=== PATIENT | female | born 1980 | race Caucasian/White ===

== ENCOUNTER 2020-03-23 14:39 | Emergency (ER) | payer MEDICAID, SELFPAY ==
[2020-03-23 14:40] VITALS: BP 122/54; PULSE 78; RESP 16; TEMP 36.3; O2SAT 97; BMI 35.5
[2020-03-23 15:00] LABS: Mucous, Urine 0 SEEN /hpf (<or=2+); Red Blood Cells-Urine 0 SEEN /hpf (0-5)
[2020-03-23 15:09] LABS: Color, Urine Yellow (Yellow); Glucose, Dipstick Normal (Normal); Ketone-Dipstick Negative (Negative); Leukocyte Esterase-Dipstick 25 /ul (Negative); Nitrite-Dipstick Negative (Negative); Occult Blood-Urine Negative /ul (Negative); Protein-Dipstick Negative (Negative); Urine Bilirubin Dipstick Negative (Negative); Urine Clarity Sl. Cloudy (Clear); Urine Urobilinogen Normal (Normal)
[2020-03-23 15:16] LABS: Bacteria 2+ /hpf (None Seen); Squamous Epithelial Cells - UA 0-5 SEEN /hpf (5-10); White Blood Cells 0-5 SEEN /hpf (0-5)
--- NOTE | 2020-03-23 16:33 | ED.VIS.GEN ---
History of Present Illness Chief Complaint: Female C/O Narrative: Patient was told by 1 of her partners that he has chlamydia, she also has a history of BV, she has some vaginal discharge that seems more like BV she also has no dysuria she has no fever chills cough or congestion she has no abdominal pain. Past Medical History - Allergies and Home Meds Allergies/Adverse Reactions: Allergies acetaminophen [From Vicodin] Adverse Reaction (Verified 03/23/20 14:42) Nausea hydrocodone bitartrate [From Vicodin] Adverse Reaction (Verified 03/23/20 14:42) Nausea Primary Care Physician: Ron Maddox MD [Primary Care Provider] - Past Medical History: None Smoking Status: Light Smoker (<10/day) Review of Systems All systems negative except as indicated General: Denies: Fever Respiratory: Denies: Dyspnea, Cough Gastrointestinal: Denies: Abdominal pain, Nausea, Vomiting Genitourinary: Denies: Dysuria Musculoskeletal: Denies: Myalgias Skin: Denies: Rash Neurological: Denies: Headache, Weakness Psych: Denies: Depression Endocrine: Denies: Polyuria Physical Exam Vital Signs/Narrative: Vital Signs Temp Pulse Resp BP Pulse Ox 03/23/20 14:40 97.3 F L 78 16 122/54 H 97 General: Well nourished, Well developed ENT: Moist mucous membranes Cardiovascular: Regular rate Respiratory: No distress Abdomen: Soft, Nontender Rectal: Deferred : - Back: Nontender - Deferred, Normal Inspection. Negative for: CVA tenderness Extremities: Nontender Skin: Normal color, No rash Psychological: Normal affect Diagnostic/Tx/Re-eval - Medical Decision Making Patient will be tested however I will treat her. She has no abdominal pain or abnormal vitals no further testing is needed. ED Disposition - Plan for ED Patient: Disposition: Home or Assisted Living Diagnosis: Chlamydia Instructions: Chlamydia Trachomatis Urine Prescriptions: Metronidazole [Flagyl] 500 mg PO BID #14 tab Prescription Printed Referrals: Ron Maddox MD [Primary Care Provider] - 3-5 Days
[2020-03-23] MEDS: Azithromycin 250 MG Tablet 1000 MG PO (16:37)
[2020-03-23 16:45] LABS: Chlamydia Trachomatis by PCR Negative (Negative); Neisserai gonorrhoeae by PCR Negative (Negative); Probe Check PASS; Sample Adequacy Control PASS; Specimen Processing Control PASS
[2020-03-23] MEDS: Ceftriaxone 500 MG Vial 250 MG IM (17:01)
[2020-03-23 17:02] VITALS: BP 124/62; PULSE 74; RESP 15; O2SAT 98
== END 2020-03-23 17:02 | disposition home or self-care (01) ==
PROVIDERS: Emergency Provider Emergency Medicine; PCP Family Medicine
DX: A56.2 Chlamydial infection of genitourinary tract, unspecified (principal); F17.200 Nicotine dependence, unspecified, uncomplicated
CPT/HCPCS: 81001; 87491; 87591; 96372; 99283

== ENCOUNTER 2021-04-21 15:50 | Emergency (ER) | payer MEDICAID, SELFPAY ==
[2021-04-21 15:51] VITALS: BP 116/72; PULSE 77; RESP 16; TEMP 36.3; O2SAT 97; BMI 40.8
[2021-04-21 16:23] LABS: Bacteria 0 SEEN /hpf (None Seen); Mucous, Urine 0 SEEN /hpf (<or=2+); Red Blood Cells-Urine 0 SEEN /hpf (0-5); Squamous Epithelial Cells - UA 0 SEEN /hpf (5-10); White Blood Cells 0 SEEN /hpf (0-5)
[2021-04-21 16:30] LABS: Color, Urine Yellow (Yellow); Glucose, Dipstick Normal (Normal); Ketone-Dipstick Negative (Negative); Leukocyte Esterase-Dipstick Negative /ul (Negative); Nitrite-Dipstick Negative (Negative); Occult Blood-Urine 25 /ul (Negative); Protein-Dipstick Negative (Negative); Urine Bilirubin Dipstick Negative (Negative); Urine Clarity Clear (Clear); Urine Urobilinogen Normal (Normal)
[2021-04-21 16:41] LABS: Internal QC Validated? YES +Cl - CLEAR BKGD; Pregnancy, Urine Negative Negative
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
[2021-04-21 18:50] VITALS: RESP 18
[2021-04-21] MEDS: Azithromycin 250 MG Tablet 2000 MG PO (18:55)
[2021-04-21] MEDS: Ceftriaxone 500 MG Vial 250 MG IM (19:41)
[2021-04-24 03:08] LABS: Chlamydia By Nucleic Acid AMP Negative (Negative)
[2021-04-24 09:04] LABS: Gonococcus By Nucleic Acid AMP Negative (Negative)
== END 2021-04-21 19:54 | disposition home or self-care (01) ==
PROVIDERS: Emergency Provider Emergency Medicine; PCP Nurse Practitioner Family
DX: N89.8 Other specified noninflammatory disorders of vagina (principal); Z20.2 Contact with and (suspected) exposure to infections with a predominantly sexual mode of transmission; F17.200 Nicotine dependence, unspecified, uncomplicated
CPT/HCPCS: 81001; 81025; 87086; 87088; 87491; 87591; 96372; 99282

== ENCOUNTER 2022-12-21 15:30 | Emergency (ER) | payer BC, SELFPAY ==
[2022-12-21 15:31] VITALS: BP 122/84; PULSE 78; RESP 16; TEMP 36.4; O2SAT 99; BMI 36.3
--- NOTE | 2022-12-21 16:08 | EDS_ITS ---
HPI History of Present Illness Chief Complaint: Abscess Informant: patient Narrative Narrative: Patient presents with abscess on her breast area. She started with some redness and a red dot about a week ago. She started 1 on the right side of her right breast and 1 on the right side of her left breast. They both swelled up. The tissue got thin. Over the last day or 2 they have been draining. She states there is redness around it and they are just not jeff g away. She did buy a new bra prior to this and did not wash it before using it. That is the only thing she can think has caused this. She does have a history of prior abscesses on her legs though. She states she has no medical problems and is on no meds and has no history of diabetes. She has no allergies to antibiotics. Nothing really makes the the spots better or worse. [facility] Medical History Physical exam, pre-employment Home Medications metronidazole 500 mg tablet 500 mg PO BID 7 days #14 tabs 04/21/21 [Rx Last Taken Unknown] cephalexin 500 mg capsule 500 mg PO Q6 #40 CAPSULES 12/21/22 [Rx Last Taken Unknown] sulfamethoxazole 800 mg-trimethoprim 160 mg tablet 1 tab PO BID #20 TABLETS 12/21/22 [Rx Last Taken Unknown] Allergy/AdvReac Type Severity Reaction Status Date / Time acetaminophen [From Vicodin] AdvReac Nausea Verified 12/21/22 15:31 hydrocodone bitartrate AdvReac Nausea Verified 12/21/22 15:31 [From Vicodin] Surgical History History of cholecystectomy History of loop electrical excision procedure (LEEP) History of tonsillectomy Social History Smoking Status: Light Smoker (<10/day) ROS ROS ED Constitutional Constitutional ED: Denies chills, fever(s) or sweats ENT ENT ED: Denies rhinorrhea Cardiovascular Cardiovascular: Denies chest pain or palpitations Respiratory/Chest Respiratory/Chest: Denies cough or dyspnea Gastrointestinal Gastrointestinal: Denies nausea or vomiting Musculoskeletal Musculoskeletal: Denies myalgias Integumentary Reports abscess and rash Neurologic Neurologic: Denies weakness Hematologic/Lymphatic Hematologic/Lymphatic: Denies easy bleeding or easy bruising Allergic/Immunologic Allergic/Immunologic ED: Denies urticaria EXAM Physical Exam Narrative Exam Narrative: CONSTITUTIONAL: Patient is nontoxic in appearance. The patient looks comfortable. Work of breathing looks normal. HEENT: No notable trauma. Mucous membranes moist. No thrush NECK:No JVD. No stridor. CARDIOVASCULAR: Regular rate. Regular rhythm. No notable murmur. No JVD. RESPIRATORY: No respiratory distress. Breathing is unlabored. No wheezes. Saturations are normal at 99% on room air showing no hypoxia GASTROINTESTINAL: Not distended. Bowel sounds are normal. No tenderness. MUSCULOSKELETAL: Atraumatic. No peripheral edema. NEUROLOGICAL: Patient is alert and appropriate. No focal deficit noted. SKIN: Patient has an area on the right side of each breast that has redness about 2-1/2 3 inches around. They both have a central area that is already opened and drained. There is no drainable abscess. There is no swollen area. PSYCHIATRIC: Patient is calm. Mood is appropriate. Const Vital Signs: 12/21/22 15:31 Temperature 97.5 F L Temperature Source Temporal Pulse Rate 78 Respiratory Rate 16 Blood Pressure 122/84 H Blood Pressure Mean 96 Pulse Ox 99 Oxygen Delivery Method Room Air MDM MDM MDM Narrative Medical decision making narrative: I explained to the patient that normally we would anesthetize these areas make a small incision and get them draining. But they have already drained. There is really nothing to open up. I do not think this would benefit her. But she does have enough erythema that antibiotics are appropriate. Because she has had abscesses in both of these had pockets I will cover for MRSA. We discussed reasons to return and local care. I do not think any ultrasound or imaging is needed. These are superficial on exam. I do not see indication for blood work. She is not sick septic or febrile. Discharge Plan Triage Chief Complaint: Abscess ED Provider: Ramírez Lindo Dx/Rx/DC Orders Clinical Impression: Abscess of breast Instructions: ED Abscess Antibiotic Treatment Only Prescriptions: New sulfamethoxazole-trimethoprim [sulfamethoxazole-trimethoprim] 800-160 mg tablet 1 tab PO BID Qty: 20 0RF cephalexin [cephalexin] 500 mg capsule 500 mg PO Q6 Qty: 40 0RF No Action metronidazole 500 mg tablet 500 mg PO BID 7 Days Qty: 14 0RF Primary Care Provider: Anselmo,Cherelle TENSION WORKER Referrals: hCerelle Briones NP, TENSION WORKER-C [Primary Care Provider] - 3-5 Days if not improving Disposition Disposition: Home, Self Care
[2022-12-21 16:46] VITALS: RESP 16
== END 2022-12-21 16:48 | disposition home or self-care (01) ==
PROVIDERS: Emergency Provider Emergency Medicine; PCP Nurse Practitioner Family; Visit Provider Emergency Medicine
DX: N61.1 Abscess of the breast and nipple (principal); F17.200 Nicotine dependence, unspecified, uncomplicated
CPT/HCPCS: 99282

== ENCOUNTER 2024-02-18 12:59 | Emergency (ER) | payer OTHER, SELFPAY ==
[2024-02-18 13:00] VITALS: BP 125/85; PULSE 94; RESP 16; TEMP 35.8; O2SAT 95; BMI 27.7
--- NOTE | 2024-02-18 13:15 | EKG12_ITS ---
Test Reason : CP Blood Pressure : / mmHG Vent. Rate : 083 BPM Atrial Rate : 083 BPM P-R Int : 146 ms QRS Dur : 072 ms QT Int : 388 ms P-R-T Axes : 045 -17 035 degrees QTc Int : 455 ms Normal sinus rhythm Normal ECG Confirmed by JACEK HOFFMAN, LUCITA ([id number]), movie editor ROBERT CHANG ([id number]) on 02/21/2024 9:47:18 AM Referred By: AR Confirmed By:LAM READ MD
--- NOTE | 2024-02-18 13:16 | EDS_ITS ---
HPI History of Present Illness Chief Complaint: Chest Pain Narrative Narrative: 43-year-old female past medical history of diabetes, on metformin, also has history of panic attacks presents with multiple somatic complaints similar to her previous panic attacks. She states that she was written for hydroxyzine but does not like to take it because it makes her sleepy. About an hour ago, as she was cleaning, she started to feel very lightheaded and dizzy. She felt like a panic attack was coming on. She experienced chest pain, but she denies any nausea or vomiting, no shortness of breath associated with it. She states that whenever she tries to open her eyes, she feels really lightheaded and dizzy. Previously, when she had her worst panic attack, she had come to the ED and she received a medication. She states that this is worsened that. She does not usually take hydroxyzine because it makes her sleepy, and that she becomes lightheaded as well. Additionally, she states she usually does not drink alcohol, but she did imbibe yesterday evening, and is not sure if the way she is feeling is secondary to that. [facility] Medical History (Updated 02/18/24 @ 14:11 by Xuan Du) Diabetes Physical exam, pre-employment Home Medications ?Medication ?Instructions ?Recorded ?Last Taken ?Type metronidazole 500 mg tablet 500 mg PO BID 7 days #14 tabs 04/21/21 Unknown Rx cephalexin 500 mg capsule 500 mg PO Q6 #40 CAPSULES 12/21/22 Unknown Rx sulfamethoxazole 800 1 tab PO BID #20 TABLETS 12/21/22 Unknown Rx mg-trimethoprim 160 mg tablet Allergy/AdvReac Type Severity Reaction Status Date / Time acetaminophen (From Vicodin) AdvReac Nausea Verified 02/18/24 13:00 hydrocodone bitartrate (From AdvReac Nausea Verified 02/18/24 13:00 Vicodin) Surgical History History of cholecystectomy History of loop electrical excision procedure (LEEP) History of tonsillectomy Social History Smoking Status: Light Smoker (<10/day) ROS ROS ED ROS Narrative Constitutional: No fever, no chills. HEENT: No sore throat. No neck pain. No loss of vision. No rhinorrhea. Cardiovascular: Intermittent chest pain. No palpitations. No pedal edema. Respiratory: Positive weeks of cough, no shortness of breath. Abdominal: No abdominal pain. No nausea. No vomiting. Genitourinary: No dysuria. No hematuria. Musculoskeletal: No myalgias. No arthralgias. Neurologic: No headaches. Positive dizziness and lightheadedness. Skin: No rash. No change in color. Psychiatric: No depression. Positive anxiety. EXAM Physical Exam Narrative Exam Narrative: Afebrile. Vital signs noted. HEENT: Normocephalic. Atraumatic. PERRL, EOMI. Neck soft and supple. No point tenderness or step off. Cardiovascular: Regular rate and rhythm. No murmurs, rubs, or gallops appreciated. Respiratory: No tachypnea. Lungs clear to auscultation bilaterally. Gastrointestinal: Abdomen soft, nontender, with normoactive bowel sounds. No rebound or guarding. Neurological: Awake. Alert. Nonfocal, nonlateralizing. Skin: No rash. Normal color. No pallor. Musculoskeletal: No pedal edema. Full range of motion extremities. Const Vital Signs: 02/18/24 13:00 02/18/24 13:27 02/18/24 14:00 Temperature 96.5 F L Temperature Source Temporal Pulse Rate 94 68 Pulse Rate [Lying] Pulse Rate [Sitting (for 1 minute prior to obtaining)] Pulse Rate [Standing (for 1 minute prior to obtaining)] Respiratory Rate 16 16 Respiratory Effort Blood Pressure 125/85 H 100/67 Blood Pressure [Lying] Blood Pressure [Sitting (for 1 minute prior to obtaining)] Blood Pressure [Standing (for 1 minute prior to obtaining)] Blood Pressure Mean 98 78 Blood Pressure Mean [Lying] Blood Pressure Mean [Sitting (for 1 minute prior to obtaining)] Blood Pressure Mean [Standing (for 1 minute prior to obtaining)] Pulse Ox 95 98 97 Oxygen Delivery Method Room Air Room Air Room Air 02/18/24 14:10 02/18/24 14:12 Temperature Temperature Source Pulse Rate Pulse Rate [Lying] 76 Pulse Rate [Sitting (for 1 minute prior to obtaining)] 78 Pulse Rate [Standing (for 1 minute prior to obtaining)] 77 Respiratory Rate Respiratory Effort Normal Non-Labored Blood Pressure Blood Pressure [Lying] 104/73 Blood Pressure [Sitting (for 1 minute prior to obtaining)] 109/87 H Blood Pressure [Standing (for 1 minute prior to obtaining)] 106/77 Blood Pressure Mean Blood Pressure Mean [Lying] 83 Blood Pressure Mean [Sitting (for 1 minute prior to obtaining)] 94 Blood Pressure Mean [Standing (for 1 minute prior to obtaining)] 86 Pulse Ox Oxygen Delivery Method MDM MDM MDM Narrative Medical decision making narrative: The differential diagnosis is acute coronary syndrome versus panic attack versus pneumonia versus pneumothorax. History and physical does not support the latter 2 diagnoses. Differential is not limited to these however. Comprehensive workup was pursued. She has normal vital signs I think she is probably having more panic attack versus intravascular volume depletion. EKG obtained which demonstrates normal sinus rhythm at 83 bpm without ectopy or acute ST changes. No STEMI. Her orthostatics were obtained and reviewed and are negative for significant drop in blood pressure or tachycardia/increased heart rate. I reviewed her laboratory work and she has normal white count of 10.1 with hemoglobin normal at 12.9, hematocrit 40.0, platelet count is elevated at 524 which I think is nonspecific. 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 Sodium is slightly low at 135, normal potassium of 4.1, gluco se is elevated at 340 but she has normal anion gap of 9 so I doubt diabetic ketoacidosis. Magnesium normal at 1.7. High-sensitivity troponin is less than 3. I do not feel that she needs serial enzymes as her history and physical does not really support ischemic chest pain. Upon repeat evaluation, she may feel lightheaded because of her hyperglycemia but this is a random glucose. I do not feel she requires admission. Her repeat evaluation at approximately 1415 shows her to feel more calm. She has hydroxyzine at home. I feel she can be discharged to follow-up with her primary care provider. Return instructions to the emergency department were reviewed. Disposition is discharged home in stable condition. History & Record Review Discussion w/independent historian: Patient Lab Data Attestation: I reviewed the patient's lab results. Labs: Laboratory Results - last 24 hr 02/18/24 13:25 WBC 10.1 RBC 4.53 Hgb 12.9 Hct 40.0 MCV 88.3 MCH 28.5 MCHC 32.3 RDW Std Deviation 50.0 H RDW Coeff of Arlin 15.5 H Plt Count 524 H MPV 8.9 Immature Gran % (Auto) 0.300 Neut % (Auto) 56.8 Lymph % (Auto) 30.6 [place] % (Auto) 10.3 H Eos % (Auto) 1.3 Baso % (Auto) 0.7 Absolute Neuts (auto) 5.7 Absolute Lymphs (auto) 3.09 Nucleated RBC % 0 Sodium 135 L Potassium 4.1 Chloride 103 Carbon Dioxide 23.0 Anion Gap 9 BUN 5 L Creatinine 0.92 Estim Creat Clear Calc 84.85 Est GFR (MDRD) Af Amer 87 Est GFR (MDRD) Non-Af 72 BUN/Creatinine Ratio 5.5 L Glucose 340 H Calcium 8.9 Magnesium 1.7 Troponin I High Sens < 3 L Radiography Diagnostic Testing: Clinical Impression(s) from Imaging Studies Chest X-Ray 02/18/24 13:25 IMPRESSION: No acute cardiopulmonary process identified. Electronically Signed: Emy Gonzalez MD at 14:00 EDT Reading Location ID and State: [facility] / [place] Tel , Service support , Discharge Plan Triage Chief Complaint: Chest Pain ED Provider: Federico Bauer Dx/Rx/DC Orders Prescriptions: No Action metronidazole 500 mg tablet 500 mg PO BID 7 Days Qty: 14 0RF sulfamethoxazole-trimethoprim [sulfamethoxazole-trimethoprim] 800-160 mg tablet 1 tab PO BID Qty: 20 0RF cephalexin [cephalexin] 500 mg capsule 500 mg PO Q6 Qty: 40 0RF Primary Care Provider: Cherelle Briones NP Referrals: Cherelle Briones NP, RIB MATCHER AND FITTER-C [Primary Care Provider] - Print Language: [place]
[2024-02-18] MEDS: 0.9% Normal Saline (1000mL) 1,000 ML 999 ML IV (13:24)
[2024-02-18] MEDS: Aspirin 81 MG TAB.CHEW 324 MG PO (13:24)
--- NOTE | 2024-02-18 13:25 | RAD_ITS ---
HISTORY: chest pain. TECHNIQUE: XR Chest 1 View. COMPARISON: 10/19/2015. FINDINGS: CARDIOMEDIASTINAL BORDERS: Cardiac silhouette within normal limits in size. Mediastinal contour unremarkable. LUNGS: Radiographically clear. PLEURA: No pleural effusion or pneumothorax seen. OSSEOUS STRUCTURES: Unremarkable. RAD/Chest 1 View (Portable) IMPRESSION: No acute cardiopulmonary process identified. Electronically Signed: Emy Gonzalez MD at 14:00 EDT ,
[2024-02-18 13:27] VITALS: O2SAT 98
[2024-02-18 13:30] LABS: Absolute Lymphocyte Count 3.09 X10^3/uL (0.83-4.51); Absolute Neutrophil Count 5.7 X10^3/uL (2.0-7.7); Basophil# 0.07 X10^3/uL; Basophil% 0.7 % (0-1); Eosinophil# 0.13 X10^3/uL; Eosinophils% 1.3 % (0-5); Hemoglobin 12.9 g/dL (12.0-15.0); Lymphocyte # 3.09 X10^3/ul (0.83-4.51); Lymphocyte % 30.6 % (19-41); Mean Corp Hgb Conc 32.3 g/dL (32-36); Mean Corpuscular Hgb 28.5 pg (27.0-32.0); Mean Corpuscular Volume 88.3 fL (81-99); Mean Platelet Vol. 8.9 fl (6.2-12.0); Monocyte# 1.04 X10^3/uL; Monocyte% 10.3 % (0-10); NRBC Flagged by Analyzer 0 % (0-5); Neutrophil # 5.73 X10^3/uL (2.7-7.7); Neutrophil % 56.8 % (47-70); Platelet Count 524 K/mm3 (150-450); RBC Distribution Width CV 15.5 % (11.6-14.6); Red Blood Count 4.53 M/mm3 (4.2-5.4); White Blood Count 10.1 K/mm3 (4.4-11.0)
[2024-02-18 13:49] LABS: Anion Gap 9 (5-15); BUN 5 mg/dL (7-18); BUN/Creat Ratio 5.5 RATIO (10-20); Calcium,Total 8.9 mg/dL (8.5-10.1); Chloride 103 mmol/L (98-107); Creatinine, Serum 0.92 mg/dL (0.55-1.02); EST Glomerular Filtration Rate 72 mL/min (>60); Est Glom Filt Rate - Afr Amer 87 mL/min (>60); Estimated Creatinine Clearance 84.85 ml/min; Glucose 340 mg/dL (74-106); Magnesium 1.7 mg/dL (1.6-2.6); Potassium 4.1 mmol/L (3.5-5.1); Sodium Level 135 mmol/L (136-145); Troponin-I HS < 3 pg/mL (3.0-54.0)
[2024-02-18 14:00] VITALS: BP 100/67; PULSE 68; RESP 16; O2SAT 97
[2024-02-18 14:10] VITALS: BP 104/73; BP 106/77; BP 109/87; PULSE 76; PULSE 77; PULSE 78
[2024-02-18 14:38] VITALS: BP 110/73; PULSE 71; RESP 21; TEMP 36.8; O2SAT 98
== END 2024-02-18 14:39 | disposition home or self-care (01) ==
PROVIDERS: Emergency Provider Emergency Medicine; PCP Nurse Practitioner Family; Visit Provider Emergency Medicine
DX: R07.9 Chest pain, unspecified (principal); E11.65 Type 2 diabetes mellitus with hyperglycemia; F17.200 Nicotine dependence, unspecified, uncomplicated; Z79.84 Long term (current) use of oral hypoglycemic drugs
CPT/HCPCS: 71045; 80048; 83735; 84484; 85025; 93005; 96360; 99285; J7030

== ENCOUNTER 2024-04-05 13:55 | Emergency (ER) | payer SELFPAY ==
[2024-04-05 13:55] VITALS: BP 122/86; PULSE 98; RESP 18; TEMP 36.5; O2SAT 97; BMI 26.6
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
[2024-04-05] MEDS: Acetaminophen 325 MG Tablet 650 MG PO (15:05)
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
[2024-04-05 15:29] LABS: Internal QC Validated? YES +Cl - CLEAR BKGD; Pregnancy, Urine Negative Negative
[2024-04-05 15:30] LABS: Record Kit Lot#,Urine Preg 772476
[2024-04-05 15:55] VITALS: PULSE 90; RESP 16; O2SAT 98
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
[2024-04-05 16:46] VITALS: BP 134/69; PULSE 81; RESP 16; TEMP 36.4; O2SAT 100
== END 2024-04-05 16:47 | disposition home or self-care (01) ==
PROVIDERS: Emergency Provider Emergency Medicine; PCP Nurse Practitioner Family; Visit Provider Emergency Medicine
DX: S09.90XA Unspecified injury of head, initial encounter (principal); E11.9 Type 2 diabetes mellitus without complications; J06.9 Acute upper respiratory infection, unspecified; F17.200 Nicotine dependence, unspecified, uncomplicated; M25.511 Pain in right shoulder; Y04.8XXA Assault by other bodily force, initial encounter; S00.83XA Contusion of other part of head, initial encounter; S53.401A Unspecified sprain of right elbow, initial encounter; Z79.84 Long term (current) use of oral hypoglycemic drugs
CPT/HCPCS: 70450; 70486; 73080; 81025; 87631; 99282

== ENCOUNTER 2025-05-01 23:09 | Emergency (ER) | payer MEDICAID, SELFPAY ==
[2025-05-01 23:10] VITALS: BP 125/102; PULSE 91; RESP 18; TEMP 36.4; O2SAT 99; BMI 25.2
[2025-05-01 23:59] LABS: Mucous, Urine 0 SEEN /hpf (<or=2+)
--- NOTE | 2025-05-01 23:59 | RAD_ITS ---
PROCEDURE: CHEST PA AND LATERAL 05/01/2025 REASON FOR EXAM: COUGH TECHNIQUE: Procedure Code: RADCXR Modality: DX Procedure: CHEST PA AND LATERAL COMPARISON: 02/18/2024. FINDINGS: The lungs are expanded. There is no demonstrated parenchymal abnormality. There is no demonstrated pleural abnormality. Normal heart and pericardium. Normal mediastinum and pramod. Normal visualized pulmonary arteries. Normal visualized aortic arch and descending thoracic aorta. Normal visualized thoracic spine. Normal visualized ribs, clavicles, and shoulders. There is no demonstrated abnormality of the visualized soft tissue structures of the upper abdomen. RAD/Chest PA and Lateral IMPRESSION: No evidence for acute abnormality. [facility]
--- OUTSIDE RECORDS SUMMARY | 2025-05-02 00:04 | XMS RPT_ITS | CCD ---
Author Organization [facility] Care Team Providers Care Dock Superintendent Name Role Phone KHUSHBOO RUIZ Unavailable Unavailabl e TARKENTON, RAQUEL Referring Unavailable TARKENTON, RAQUEL Primary Care Unavailable Tarkenton, Raquel Primary Care Provider Liang HOFFMAN, Ravinder Primary Care Provider Liang HOFFMAN, Ravinder Primary Care Provider Nikolay LCSW, Suma Bernstein Attending Unavailabl e Troy LCSW, Sarah Referring Unavailable Troy LCSW, Sarah Primary Care Unavailable Troy LCSW, Sarah Primary Care Unavailable Krista Bryan Attending Unavailable Troy LCSW, Sarah Primary Care Unavailable Federico Bauer Attending Unavailable SARAH BRIONES CNP Consulting Unavailable BRUCE, WILFRIDO C Admitting Unavailable BRUCE, WILFRIDO C Primary Care Unavailable BRUCE, WILFRIDO C Attending Unavailable SARAH BRIONES CNP Referring Unavailable PROVIDER, UNKNOWN Consulting Unavailable PROVIDER, UNKNOWN Consulting Unavailable SARAH BRIONES CNP Primary Care Unavailable SARAH BRIONES CNP Attending Unavailable SARAH BRIONES CNP Admitting Unavailable SARAH BRIONES CNP Admitting Unavailable SARAH BRIONES CNP Primary Care Unavailable SARAH BRIONES CNP Consulting Unavailable SARAH BRIONES CNP Attending Unavailable PROVIDER, UNKNOWN Consulting Unavailable PROVIDER, UNKNOWN Consulting Unavailable SARAH BRIONES CNP Consulting Unavailable HEATHER CARRERO MD Admitting Unavailable HEATHER CARRERO MD Primary Care Unavailable HEATHER CARRERO MD Attending Unavailable SARAH BRIONES CNP Referring Unavailable PROVIDER, UNKNOWN Consulting Unavailable PROVIDER, UNKNOWN Consulting Unavailable HERBERT KOWALSKI Admitting Unavailable JEBHERBERT CALDWELL Primary Care Unavailable HERBERT KOWALSKI Attending Unavailable SARAH BRIONES CNP Consulting Unavailable SARAH BRIONES CNP Referring Unavailable PROVIDER, UNKNOWN Consulting Unavailable PROVIDER, UNKNOWN Consulting Unavailable Aileen Samuels PA-C Unavailable Troy THOMAS.Sarah MONTA[place] Primary Care Provider YULIET JOHNSON Attending Unavailable SARAH BRIONES Primary Care Unavailable [facility] Natobarbara Lim Primary Care Provider Art March MD Emergency Provider Kanani DMD, Hadley Unavailable Unavailable Kanani DMD, Hadley Unavailable Unavailable Rice WHCNP WHCNP, Marco Unavailable Unavaila ble Rice ([facility]) Maroc THOMAS Attending Provider Frey LCSW-C, Ruddy Primary Care Provider Frey LCSW-C, Ruddy Unavailable Unavailab le Rondon DDS, Yovani Unavailable Unavailable Rice WHCNP WHCNP, Marco Unavailable Unavaila ble Rice WHCNP WHCNP, Marco Unavailable Unavaila ble Kanani DMD, Hadley Unavailable Unavailable Frey LCSW-C, Ruddy Unavailable Unavailab le Rice WHCNP WHCNP, Marco Unavailable Unavaila ble Clancy DDS, Yixue Unavailable Unavailable Frey LCSW-C, Ruddy Unavailable Unavailab le Frey LCSW-C, Ruddy Unavailable Unavailab le Frey LCSW-C, Ruddy Unavailable Unavailab le [facility], Nato Lim Primary Care Unavailable Art March Jr Admitting Unavailable Art March Jr Attending Unavailable Ruddy Frey Primary Care Unavailable Rice ([facility]), Marco Isabel Admitting Unavailabl e Rice ([facility]), Marco Isabel Attending Unavailabl e Ruddy Frey Primary Care Unavailable Rice ([facility]), Marco Isabel Admitting Unavailabl e Rice ([facility]), Marco Isabel Attending Unavailabl e Kanani DMD, Hadley Unavailable Unavailable Rice WHCNP WHCNP, Marco Unavailable Unavaila ble Rice WHCNP WHCNP, Marco Unavailable Unavaila ble Rondon DDS, Yovani Unavailable Unavailable West LCSW-C, Coby Unavailable Unavailable Rice WHCNP WHCNP, Marco Unavailable Unavaila ble Kanani DMD, Hadley Unavailable Unavailable Rice WHCNP WHCNP, Marco Unavailable Unavaila ble Frey LCSW-C, Ruddy Unavailable Unavailab le Frey LCSW-C, Ruddy Primary Care Unavailab le Frey LCSW-C, Ruddy Attending Unavailab le Rice CNP ANTHONYPMarco Unavailable Unavaila ble [facility] Marco Unavailable Unavaila ble Allergies Allergy Classification Reported Allergen(s) Allergy Type Date of Onset Reaction(s) Facility (7 sources) Acetaminophen / HYDROcodone; Translations: [HYDROCODONE-ACETA MINOPHEN] Drug Allergy 10-02-2013 Vomiting [facility] [place] (2 sources) Acetaminophen; Translations: [ACETAMINOPHEN] Drug Allergy 03-23-2020 [facility] (1 source) HYDROcodone Drug Allergy 04-05-2024 [facility] (2 sources) Acetaminophen Drug Allergy 03-23-2020 Vomiting [facility] (4 sources) HYDROcodone; Translations: [hydrocodone] Drug Allergy 03-08-2025 Vomiting [facility] Medications Current Medications Medication Drug Class(es) Dates Sig (Normalized) Sig (Original) boric acid (2 sources) BORIC ACID MISC as needed. Active 12 hr buPROPion hydrochloride 150 mg extended release oral tablet (1 source) Aminoketone take 1 tablet by mouth twice daily buPROPion (WELLBUTRIN SR) 150 MG extended release tablet Take 150 mg by mouth 2 times daily 0 Active 0.5 ml dulaglutide 3 mg/ml auto-injector (2 sources) GLP-1 Receptor Agonist Start: 04-04-2025 inject 1 mg by subcutaneous injection every week Trulicity 1.5 mg/0.5 mL subcutaneous pen injector inject (1.5MG) by subcutaneous route every week 1.5 MG - Active Start: 03-14-2025 inject 1 mg by subcu taneous injection every week Trulicity 0.75 mg/0.5 mL subcutaneous pen injector inject (0.75MG) by subcutaneous route every week 0.75 MG - Active famotidine 20 mg oral tablet (4 sources) Histamine-2 Receptor Antagonist Start: 03-06-2025 take 1 tablet by mouth once daily glipiZIDE er 10 mg 24 hr extended release oral tablet (7 sources) Sulfonylurea Start: 03-08-2025 take 1 tablet by mouth twice daily Start: 03-07-2025 take 2 tablets by mo [facility] once daily at breakfast glipizide ER 10 mg tablet, extended release 24 hr take 2 tablet by oral route every day with breakfast 20 MG - Active Start: 01-02-2025 take 1 tablet by mouth once da [place] glipiZIDE (GLUCOTROL XL) 5 mg 24 hr tablet Take 1 tablet by mouth once daily. 01/02/2025 Active End: 03-07-2025 take 1 tablet by mouth every twelve hours glipizide 5 mg tablet take 1 tablet by oral route 2 times every day before meals 5 MG - No Longer Active 12 hr guaiFENesin 1200 mg / pseudoephedrine hydrochloride 120 mg extended release oral tablet (1 source) alpha-Adrenergic Agonist Start: 02-02-2018 take 120-1200 mg by mouth once Pseudoephedrine-guaiFENesin (MUCINEX D MAX STRENGTH) 120-1200 MG TB12 Take 1 tablet by mouth 2 times daily 20 tablet 0 02/02/2018 Active hydroCHLOROthiazide 12.5 mg oral capsule (1 source) Thiazide Diuretic take 1 capsule by mouth once daily hydrochlorothiazide (MICROZIDE) 12.5 MG capsule Take 12.5 mg by mouth daily 0 Active ibuprofen 600 mg oral tablet (1 source) Nonsteroidal Anti-inflammatory Drug Start: 03-24-2025 take 1 tablet by mouth three times daily at mealtime as needed ibuprofen 600 mg tablet take 1 tablet by oral route 3 times every day with food as needed 600 MG - Active isopropyl alcohol 0.7 ml/ml medicated pad (1 source) Start: 03-06-2025 Alcohol Pads QID PRN testing for symptoms of abnormal blood sugar - Active metFORMIN hydrochloride 1000 mg oral tablet (8 sources) Biguanide Start: 03-14-2025 take 1 tablet by mouth twice daily at dinner metformin 1,000 mg tablet take 1 tablet by oral route 2 times every day with morning and evening meals 1000 MG - Active Start: 03-08-2025 Start: 01-02-2025 take 1 tablet by richa th every twelve hours metFORMIN (GLUCOPHAGE) 1,000 mg tablet Take 1 tablet by mouth every 12 hours. 01/02/2025 Active End: 03-04-2025 take 1 tablet by mouth every twelve hours metformin 500 mg tablet take 1 tablet by oral route 2 times every day with morning and evening meals 500 MG - No Longer Active metroNIDAZOLE 500 mg oral tablet (2 sources) Nitroimidazole Antimicrobial Start: 03-10-2025 take 1 tablet by mouth twice daily metronidazole 500 mg tablet take 1 tablet by oral route BID for 7 days - Active Start: 12-22-2021 End: 12-29-2021 take 1 tablet by mouth twice daily metroNIDAZOLE (FLAGYL) 500 mg tablet Take 1 tablet by mouth twice daily for 7 days. 14 tablet 0 12/22/2021 12/29/2021 Active Comment on above: Take 1 tablet by richa twice daily for 7 days. Monistat 7 Vaginal Cream Combination Pack (1 source) Azole Antifungal Start: 03-10-2025 Monistat 7 2 % vaginal cream insert 1 applicatorful by vaginal route every day at bedtime for 7 days - Active norethindrone acetate 5 mg oral tablet (2 sources) Start: 01-14-2025 norethindrone (AYGESTIN) 5 mg tablet Indications: abnormal uterine bleeding due to hormonal imbalance Take 1 tablet TID until bleeding stops for 24 hours, then 1 tablet BID x 3 days, then 1 tablet daily x 3 days. 35 tablet 01/14/2025 Active OneTouch Ultra2 Meter (1 source) Start: 03-06-2025 OneTouch Ultra2 Meter QID PRN testing for symptoms of abnormal blood sugar - Active Completed/Discontinued Medications Medication Drug Class(es) Dates Sig (Normalized) Sig (Original) azithromycin 500 mg oral tablet (1 source) Macrolide Antimicrobial Start: 03-10-2025 End: 03-14-2025 take 2 tablets by mouth once Zithromax 500 mg tablet take 2 tablet by oral route once 1000 MG - No Longer Active citalopram 20 mg oral tablet (4 sources) Serotonin Reuptake Inhibitor End: 01-14-2025 take 1 tablet by mouth once daily citalopram (CELEXA) 20 mg tablet Take 20 mg by mouth once daily. 01/14/2025 Discontinued (Course of therapy completed) Comment on above: Take 20 mg by mouth once daily. sulfamethoxazole 800 mg / trimethoprim 160 mg oral tablet (1 source) Dihydrofolate Reductase Inhibitor Antibacterial, Sulfonamide Antimicrobial Start: 04-09-2025 End: 04-18-2025 take 1 tablet by mouth every twelve hours Bactrim DS 800 mg-160 mg tablet take 1 tablet by oral route every 12 hours 1.00 tablet - No Longer Active Problems Active Problems Problem Classification Problem Date Documented Date Episodic/Chronic Adjustment disorders (5 sources) Adjustment disorder; Translations: [Adjustment disorder, unspecified] Onset: 01-07-2010 01-07-2010 Chronic Alcohol-related disorders (2 sources) Alcohol dependence, uncomplicated; Translations: [Alcohol use disorder. Severe] Onset: 04-17-2025 Chronic Anxiety disorders (2 sources) Post-traumatic stress disorder, unspecified; Translations: [Posttraumatic stress disorder] Onset: 04-17-2025 Chronic Bacterial infection; unspecified site (3 sources) Chlamydial infection; Translations: [Chlamydial infection, unspecified] 03-10-2025 Episodic Diabetes mellitus with complications (8 sources) Hyperglycemia due to diabetes mellitus; Translations: [Type 2 diabetes mellitus with hyperglycemia] 03-09-2025 Chronic Diabetes mellitus without complication (2 sources) Type 2 diabetes mellitus without complications; Translations: [Type 2 diabetes mellitus without complication, without long-term current use of insulin] Chronic Diabetes mellitus without complication (3 sources) Other abnormal glucose; Translations: [Hemoglobin A1C greater than 9%, indicating poor diabetic control] Onset: 03-08-2025 Episodic Esophageal disorders (7 sources) Gastroesophageal reflux disease; Translations: [Gastro-esophageal reflux disease without esophagitis] Onset: 03-02-2012 03-02-2012 Chronic Headache; including migraine (1 source) Headache; including migraine; Translations: [Headache, unspecified] Onset: 04-26-2024 Immunizations and screening for infectious disease (15 sources) Patient encounter status; Translations: [Encounter for screening for infections with a predominantly sexual mode of transmission] Onset: 01-14-2025 Episodic Mood disorders (2 sources) Dysthymic disorder; Translations: [Persistent depressive disorder (dysthymia)] Onset: 04-17-2025 Chronic Nonspecific chest pain (1 source) Chest pain, unspecified; Translations: [Chest pain, unspecified] Onset: 02-28-2024 Episodic Other female genital disorders (2 sources) Abnormal uterine bleeding; Translations: [Abnormal uterine and vaginal bleeding, unspecified] 01-14-2025 Chronic Other female genital disorders (6 sources) Abnormal uterine and vaginal bleeding, unspecified; Translations: [Episode of heavy vaginal bleeding] Onset: 01-14-2025 Chronic Other female genital disorders (1 source) Vaginal odor; Translations: [Other specified noninflammatory disorders of vagina] 01-14-2025 Episodic Other female genital disorders (1 source) Other specified noninflammatory disorders of vagina; Translations: [Vaginal odor] Onset: 01-14-2025 Episodic Other nutritional; endocrine; and metabolic disorders (5 sources) Body mass index 40+ - severely obese; Translations: [Morbid (severe) obesity due to excess calories] Onset: 04-09-2013 04-09-2013 Chronic Other nutritional; endocrine; and metabolic disorders (2 sources) Body mass index (BMI) 34.0-34.9, adult Onset: 02-27-2025 02-27-2025 Chronic Other nutritional; endocrine; and metabolic disorders (8 sources) Body mass index (BMI) 26.0-26.9, adult Onset: 03-04-2025 03-04-2025 Episodic Other screening for suspected conditions (not mental disorders or infectious disease) (20 sources) Cancer cervix screening status; Translations: [Encounter for screening for malignant neoplasm of cervix] Onset: 01-14-2025 01-14-2025 Episodic Prolapse of female genital organs (3 sources) Uterine prolapse; Translations: [Uterovaginal prolapse, unspecified] Onset: 01-14-2025 01-14-2025 Chronic Residual codes; unclassified (6 sources) High risk heterosexual behavior Episodic Residual codes; unclassified (2 sources) Body mass index (BMI) 24.0-24.9, adult Onset: 04-09-2025 04-09-2025 Episodic Skin and subcutaneous tissue infections (2 sources) Furuncle, unspecified; Translations: [Boil] Episodic Substance-related disorders (6 sources) Cannabis dependence, in remission; Translations: [Cocaine abuse, uncomplicated] Onset: 04-17-2025 Chronic Unclassified (1 source) Unknown / UNK(Unknown) Onset: 06-20-2017 Unclassified (1 source) Patient encounter status 01-14-2025 Past or Other Problems Problem Classification Problem Date Documented Date Episodic/Chronic Abdominal pain (9 sources) Pain in female pelvis; Translations: [Abdominal pain] Onset: 07-03-2009 07-03-2009 Episodic Administrative/social admission (1 source) Encounter for pre-employment examination; Translations: [Encounter for pre-employment examination] Onset: 08-28-2023 Episodic Biliary tract disease (5 sources) Biliary calculus; Translations: [Calculus of gallbladder without cholecystitis without obstruction] Onset: 10-02-2013 10-02-2013 Episodic Diabetes mellitus without complication (2 sources) Diabetes mellitus without complication Onset: 03-06-2025 Resolved: 03-14-2025 Genitourinary symptoms and ill-defined conditions (1 source) Dysuria; Translations: [Dysuria] Onset: 03-06-2024 Episodic Unclassified (1 source) PRE EMP PX ONLY Onset: 06-20-2017 Unclassified (1 source) dental new (chief complaint) Onset: 02-26-2025 Unclassified (1 source) pa (chief complaint) Onset: 02-27-2025 Unclassified (2 sources) annual exam (chief complaint) Onset: 03-04-2025 Unclassified (2 sources) Filling (chief complaint) Onset: 03-17-2025 Resolved: 03-31-2025 Unclassified (1 source) ext (chief complaint) Onset: 03-06-2025 Unclassified (2 sources) DL (chief complaint) Onset: 03-10-2025 Resolved: 03-24-2025 Unclassified (1 source) DORIS (chief complaint) Onset: 04-09-2025 Viral infection (5 sources) Genital warts; Translations: [Anogenital (venereal) warts] Onset: 06-11-2012 06-11-2012 Episodic Results Test Name Value Interpretation Reference Range Facility Laboratory - Microbiology an d Antimicrobial susceptibilityOrdered By: Marco Jacques [facility] on 04-10-2025 C. trachomatis rRNA RUSSELL+probe Ql (Unsp spec) Negative Negative [facility] N. gonorrhoeae rRNA RUSSELL+probe Ql (Unsp spec) Negative Negative [facility] T. vaginalis rRNA RUSSELL+probe Ql (Unsp spec) Negative Negative [facility] MM screening mammo BI w/CADo n 03-20-2025 MM screening mammo BI w/CAD [facility] [address] [place], [place] [address], [place] [address] Mammography Report Signed Patient: Ana Fulton MR#: [id number] : 1980 Acct:[id number] Age/Sex: 44 / F Adm Date: 03/20/25 Loc: [place] Room: Type: [facility] Attending Dr: Marco Jacques ([facility]) WILLIAM Ordering Provider: Marco Jacques APRN RUBÉN Date of Service: 03/20/25 Procedure(s): MM screening mammo BI w/CAD Accession Number(s): ([id number]) MM/MM screening mammo BI w/CAD: SCREENING Copies to: Ruddy Jacques APRN, RUBÉN CLINICAL DATA: Screening for malignancy. SCREENING MAMMOGRAM - FULL FIELD DIGITAL WITH TOMOSYNTHESIS AND CAD COMPARISON:Baseline study Tomosynthesis craniocaudal and mediolateral oblique views of both breasts were obtained using low- dose digital technique. This examination was reviewed with the aid of CAD. FINDINGS: The breast tissue is composed of scattered fibroglandular densities. There are no dominant masses, typically malignant calcifications or architectural distortion. MM/MM screening mammo BI w/CAD IMPRESSION: NO MAMMOGRAPHIC EVIDENCE OF MALIGNANCY. ROUTINE FOLLOW-UP IS RECOMMENDED IN ONE YEAR. RESULT CODE: 1 Negative DENSITY CODE: 2 (approximately 25-50% glandular) There are scattered areas of fibroglandular density. FOLLOW UP: 1YR The false-negative rate of mammography is approximately 10-percent. Management of a palpable abnormality must be based on clinical grounds. Patient was entered into a reminder system with a target due date for the next mammogram. Impression dictated by: Amrik Quesada Jr., D.O. 03/20/2025 1:59 PM Dictation Location: [facility] Dictated By: Amrik Quesada Jr, DO 03/20/25 1358 Signed By: 03/20/25 1359 Normal [facility] Mammography reportOrdered By : Amrik Quesada on 03-20-[address] [facility] [address] [place] [id number] Mammography Report Signed Patient: Ana Fulton MR#: [id number] : 1980 Acct:[id number] Age/Sex: 44 / F Adm Date: 5 Loc: [place] Room: Type: REG CLI Attending Dr: Marco Jacques ([facility]) [place]IAM Ordering Provider: Marco Jacques APRN, WHCNP Date of Service: 03/20/25 Procedure(s): MM screening mammo BI w/CAD Accession Number(s): ([id number]) MM/MM screening mammo BI w/CAD: SCREENING Copies to: Ruddyslim Jacques APRN RUBÉN~ CLINICAL DATA: Screening for malignancy. SCREENING MAMMOGRAM - FULL FIELD DIGITAL WITH TOMOSYNTHESIS AND CAD COMPARISON:Baseline study Tomosynthesis craniocaudal and mediolateral oblique views of both breasts were obtained using low-dose digital technique. This examination was reviewed with the aid of CAD. FINDINGS: The breast tissue is composed of scattered fibroglandular densities. There are no dominant masses, typically malignant calcifications or architectural distortion. MM/MM screening mammo BI w/CAD IMPRESSION: NO MAMMOGRAPHIC EVIDENCE OF MALIGNANCY. ROUTINE FOLLOW-UP IS RECOMMENDED IN ONE YEAR. RESULT CODE: 1 Negative DENSITY CODE: 2 (approximately 25-50% glandular) There are scattered areas of fibroglandular density. FOLLOW UP: 1YR The false-negative rate of mammography is approximately 10-percent. Management of a palpable abnormality must be based on clinical grounds. Patient was entered into a reminder system with a target due date for the next mammogram. Impression dictated by: Amrik Quesada Jr., D.ODoc 03/20/2025 1:59 PM Dictation Location: [facility] Dictated By: Amrik Quesada Jr, DO 03/20/25 1358 Signed By: 03/20/25 1359 [facility] US pelvic completeon 025 US pelvic complete [facility] [place] [address] Ultrasound Report Signed Patient: Ana Fulton MR#: [id number] : 1980 Acct:[id number] Age/Sex: 44 / F ADM Date: 03/20/25 Loc: XD Room: Type: REG CLI Attending Dr: Marco Jacques ([facility]) [place] Ordering Provider: Marco Jacques APRN, WHCNP Date of Service: 03/20/25 US/US transvaginal: N93.9 ([id number]) US/US pelvic complete: N93.9 Copies to: Marco Jacques APRN, WHCNP Pelvic ultrasound. Reason for exam: Heavy vaginal bleeding last month. Comparison: none Technique: Transabdominal imaging of the uterus and ovaries was performed. Transvaginal imaging of the uterus and ovaries was also obtained. Additional spectral Doppler analysis of the ovaries was a lso obtained. Findings: Uterus measures 8.0 x 5.6 x 5.1 cm. Fibroid involving the fundus measuring 1.6 x 1.6 x 1.1 cm with likely degenerating component. Endometrium measures 2.2 mm. Right ovary measures 2.6 x 1.8 x 2.3 cm. Left ovary measures 2.4 x 2 x 1 x 2.1 cm. Normal arterial and venous Doppler waveforms. A corpus luteum/hemorrhagic cyst is seen involving the right ovary measuring 2 cm. Dominant follicle left ovary measuring 1.8 cm. US/US transvaginal Impression: Fibroid uterus. Unremarkable endometrium and ovaries. Impression dictated by: Amrik Quesada Jr., D.O. 03/20/2025 3:18 PM Dictation Location: [place] [address] Tech: Blanche Michael Transcribed By: BRANDAN 03/20/25 1518 Dictated By: Amrik Quesada Jr, DO 03/20/25 1516 Signed By: 03/20/25 1518 Normal [facility] Capillary blood glucose herman urement by glucometer (mass/volume)Ordered By: Art March on 03-09-2025 Glucose [Mass/Vol] 164 mg/dL Normal [facility] Comment on above: Random Glucose Refer ence Range is dependent on time and content of last meal. Glucose of more than 200 mg/dL in a nonstressed, ambulatory subject supports the diagnosis of Diabetes Mellitus. Result Comment: [place] om Glucose Reference Range is dependent on time and content of last meal. Glucose of more than 200 mg/dL in a nonstressed, ambulatory subject supports the diagnosis of Diabetes Mellitus. PERFORMED BY: [place] [address] PATHOLOGIST DEVELOPMENT VICE PRESIDENT CARMELLA ARREOLA M.D. Performed By: #### G SERGIO #### Point of Care testing , Laboratory - Microbiology an d Antimicrobial susceptibilityOrdered By: Marco [facility] C. trachomatis DNA RUSSELL+probe Ql (Unsp spec) Positive Abnormal Negative [facility] Alanine aminotransferase [En zymatic activity/volume] in Serum or PlasmaOrdered By: Art March on 03-08-2025 ALT [Catalytic activity/Vol] 12 U/L Normal 7-52 [facility] Comment on above: Performed By: #### B HOB, CBC, CMP #### [place] [address] [place] Albumin [Mass/volume] in Ser um or Plasma by Bromocresol green (BCG) dye binding methoOrdered By: Art March on 03-08-2025 Albumin BCG dye [Mass/Vol] 3.9 g/dL 3.5-5.7 [facility] Alkaline phosphatase [Enzyma tic activity/volume] in Serum or PlasmaOrdered By: Art March on 03-08-2025 ALP [Catalytic activity/Vol] 92 U/L Normal 34-104 [facility] Comment on above: Performed By: #### B HOB, CBC, CMP #### [address] Appearance of UrineOrdered B y: Art March on 03-08-2025 Appearance (U) Clear Normal Clear [facility] Comment on above: Order Comment: Name Collection Type:: Clean-Voided Midstream Performed By: #### A DDONUAPLUS #### [place] [address] [place] Aspartate aminotransferase [ Enzymatic activity/volume] in Serum or PlasmaOrdered By: Art March on 03-08-2025 AST [Catalytic activity/Vol] 13 U/L Normal 13-39 [facility] Comment on above: Performed By: #### B HOB, CBC, CMP #### [place] [address] [place] Bacteria [Presence] in Urine by AutomatedOrdered By: Art March on 03-08-2025 Bacteria Auto Ql (U) Rare [HPF] None Seen [facility] Basophils [#/volume] in Bloo d by Automated countOrdered By: Art March on 03-08-2025 Basophils (Bld) [#/Vol] 0.1 10*3/uL Normal 0.0-0.2 [facility] Comment on above: Result Comment: PERF ORMED BY: [place] [place] [address] PATHOLOGIST DEVELOPMENT VICE PRESIDENT CARMELLA ARREOLA M.D. Performed By: #### B HOB, CBC, CMP #### [facility] [address] [place] [address] [place] Basophils/100 leukocytes in Blood by Automated countOrdered By: Art March on 03-08-2025 Basophils/100 WBC (Bld) 1.3 % Normal . [facility] Comment on above: Performed By: #### B HOB, CBC, CMP #### [facility] [address] [place] [address] Beta Hydroxybuterateon 03-08 Beta Hydroxybuterate 0.12 mmol/L Normal 0.02-0.27 [facility] Comment on above: Result Comment: PERF ORMED BY: [place] [address] PATHOLOGIST DEVELOPMENT VICE PRESIDENT CARMELLA ARREOLA M.D. Performed By: #### B HOB, CBC, CMP #### [facility] [address] [place] [address] [place] Beta hydroxybutyrate [Moles/ volume] in Serum or PlasmaOrdered By: Art March on 03-08-2025 Beta hydroxybutyrate [Moles/Vol] 0.12 mmol/L 0.02-0.27 [facility] Bilirubin Test strip Ql (U)O rdered By: Art March on 03-08-2025 Bilirubin Ql (U) Negative Negative [facility] Bilirubin.total [Mass/volume ] in Serum or PlasmaOrdered By: Art March on 03-08-2025 Bilirubin [Mass/Vol] 0.2 mg/dL Low 0.3-1.0 [facility] Comment on above: Performed By: #### B HOB, CBC, CMP #### [facility] [address] Calcium [Mass/volume] in Ser um or PlasmaOrdered By: Art March on 03-08-2025 Calcium [Mass/Vol] 9.0 mg/dL Normal 8.6-10.3 [facility] Comment on above: Performed By: #### B HOB, CBC, CMP #### [facility] [address] Carbon dioxide, total [Moles /volume] in Serum or PlasmaOrdered By: Art March on 03-08-2025 CO2 [Moles/Vol] 18.8 mmol/L Low 21.0-31.0 [facility] Comment on above: Performed By: #### B HOB, CBC, CMP #### [address] Chloride [Moles/volume] in S jax or PlasmaOrdered By: Art March on 03-08-2025 Chloride [Moles/Vol] 102 mmol/L Normal 98-107 [facility] Comment on above: Performed By: #### B HOB, CBC, CMP #### [address] Color of Urine by AutoOrdere d By: Art March on 03-08-2025 Color (U) Colorless Normal Yellow [facility] Comment on above: Order Comment: Name Collection Type:: Clean-Voided Midstream Performed By: #### A DDONUAPLUS #### [address] Complete Blood Count Auto Di ffon 03-08-2025 Mean Corpuscular HGB Conc 32.6 g/dL Normal 32.0-35.0 [facility] Comment on above: Performed By: #### B HOB, CBC, CMP #### [place] [address] [place] Monocytes/100 WBC (Bld) 19.83 % Normal 0.00-20.00 T donta [facility] Comment on above: Performed By: #### B HOB, CBC, CMP #### [address] NRBC% 0.1 /100{WBC} Normal 0-0.5 [facility] Comment on above: Performed By: #### B HOB, CBC, CMP #### [address] White Blood Count 10.7 [CFU]/mL Normal 3.8-11.6 [facility] Comment on above: Performed By: #### B HOB, CBC, CMP #### [address] Comprehensive Metabolic Pane radha 03-08-2025 Albumin [Mass/Vol] 3.9 g/dL Normal 3.5-5.7 [facility] Comment on above: Performed By: #### B HOB, CBC, CMP #### [address] Creatinine Clr Calc Pharmacy 114.96 Normal [facility] Comment on above: Result Comment: PERF ORMED BY: [place] [address] PATHOLOGIST DEVELOPMENT VICE PRESIDENT CARMELLA ARREOLA M.D. Performed By: #### B HOB, CBC, CMP #### [address] GFR/1.73 sq M.predicted MDRD (S/P/Bld) [Vol rate/Area] mL/min/{1.73_m2} Normal [facility] Comment on above: Performed By: #### B HOB, CBC, CMP #### [address] Creatinine [Mass/volume] in Serum or PlasmaOrdered By: Art March on 03-08-2025 Creatinine [Mass/Vol] 0.66 mg/dL Normal 0.60-1.20 [facility] Comment on above: Performed By: #### B HOB, CBC, CMP #### [address] Dipstick and Microscopicon 0 03-08-2025 Bacteria,Urine Rare Normal None Seen [facility] Comment on above: Order Comment: Name Collection Type:: Clean-Voided Midstream Performed By: #### A DDONUAPLUS #### [facility] [address] [id number] [place] Bilirubin,Urine Negative Normal Negative [facility] Comment on above: Order Comment: Name Collection Type:: Clean-Voided Midstream Performed By: #### A DDONUAPLUS #### [address] Glucose Ql (U) >= Normal Normal [facility] Comment on above: Order Comment: Name Collection Type:: Clean-Voided Midstream Performed By: #### A DDONUAPLUS #### [place] [address] [place] Hyaline Casts,Urine None Normal 0-8 [facility] Comment on above: Order Comment: Name Collection Type:: Clean-Voided Midstream Performed By: #### A DDONUAPLUS #### [place] [address] [place] Mucus,Urine Rare Normal [facility] Comment on above: Order Comment: Name Collection Type:: Clean-Voided Midstream Result Comment: PERF ORMED BY: [place] [address] PATHOLOGIST DEVELOPMENT VICE PRESIDENT CARMELLA ARREOLA M.D. Performed By: #### A DDONUAPLUS #### [place] [address] [place] Nitrite,Urine Negative Normal Negative [facility] Comment on above: Order Comment: Name Collection Type:: Clean-Voided Midstream Performed By: #### A DDONUAPLUS #### [place] [address] [place] Occult Blood,Urine 3+ Normal Negative [facility] Comment on above: Order Comment: Name Collection Type:: Clean-Voided Midstream Result Comment: PERF ORMED BY: [place] [address] PATHOLOGIST DEVELOPMENT VICE PRESIDENT CARMELLA ARREOLA M.D. Performed By: #### A DDONUAPLUS #### [address] Protein,Urine Negative Normal Negative [facility] Comment on above: Order Comment: Name Collection Type:: Clean-Voided Midstream Performed By: #### A DDONUAPLUS #### [address] RBC,Urine 5-9 Normal 0-4 [facility] Comment on above: Order Comment: Name Collection Type:: Clean-Voided Midstream Performed By: #### A DDONUAPLUS #### [address] Specificy [place],Urine 1.026 Normal 1.00 1-1.03 0 [facility] Comment on above: Order Comment: Name Collection Type:: Clean-Voided Midstream Performed By: #### A DDONUAPLUS #### [address] Squamous Epithelial Cell,Urine 1-2 Normal 0-2 [facility] Comment on above: Order Comment: Name Collection Type:: Clean-Voided Midstream Performed By: #### A DDONUAPLUS #### [address] Urobilinogen,Urine Normal Normal Normal [facility] Comment on above: Order Comment: Name Collection Type:: Clean-Voided Midstream Performed By: #### A DDONUAPLUS #### [address] WBC,Urine 5-9 Normal 0-4 [facility] Comment on above: Order Comment: Name Collection Type:: Clean-Voided Midstream Performed By: #### A DDONUAPLUS #### [address] Eosinophils [#/volume] in Bl ood by Automated countOrdered By: Art March on 03-08-2025 Eosinophils (Bld) [#/Vol] 0.3 10*3/uL Normal 0.0-0.45 [facility] Comment on above: Performed By: #### B HOB, CBC, CMP #### [address] Eosinophils/100 leukocytes i n Blood by Automated countOrdered By: Art March on 03-08-2025 Eosinophils/100 WBC (Bld) 3.1 % Normal . [facility] Comment on above: Performed By: #### B HOB, CBC, CMP #### [facility] [address] Epithelial cells.squamous [# /area] in Urine sediment by Automated countOrdered By: Art March on 03-08-2025 Epithelial cells.squamous Auto (Urine sed) [#/Area] 1-2 [HPF] 0-2 [facility] Erythrocyte distribution wid th [Ratio] by Automated countOrdered By: Art March on 03-08-2025 Erythrocyte distribution width (RBC) [Ratio] 15.5 % High 11.9-15.3 [facility] Comment on above: Performed By: #### B HOB, CBC, CMP #### [address] Erythrocytes [#/area] in Uri ne sediment by Automated countOrdered By: Art March on 03-08-2025 RBC Auto (Urine sed) [#/Area] 5-9 [HPF] High 0-4 [facility] Erythrocytes [#/volume] in B lood by Automated countOrdered By: Art March on 03-08-2025 RBC (Bld) [#/Vol] 4.31 10*6/uL Normal 3.60-5.00 [facility] Comment on above: Performed By: #### B HOB, CBC, CMP #### [address] Glucose Poct Glucometerson 0 03-08-2025 Commemt1 Glu2: Cleaned Meter Normal [facility] Comment on above: Result Comment: PERF ORMED BY: [place] [address] PATHOLOGIST DEVELOPMENT VICE PRESIDENT CARMELLA RAREOLA M.D. Performed By: #### G LULS #### Point of Care testing , Glucose [Mass/Vol] 355 mg/dL Normal [facility] Comment on above: Result Comment: [place] om Glucose Reference Range is dependent on time and content of last meal. Glucose of more than 200 mg/dL in a nonstressed, ambulatory subject supports the diagnosis of Diabetes Mellitus. Performed By: #### G LULS #### Point of Care testing , Commemt1 Normal [facility] Comment on above: Result Comment: Glu2 : WILL NOTIFY DR/RN Performed By: #### G LULS #### Point of Care testing , Commemt2 Cleaned Meter Normal [facility] Comment on above: Result Comment: PERF ORMED BY: [place] [address] PATHOLOGIST DEVELOPMENT VICE PRESIDENT CARMELLA ARREOLA M.D. Performed By: #### G LULS #### Point of Care testing , Glucose [Mass/Vol] 533 mg/dL Off scale high [facility] Comment on above: Result Comment: [place] om Glucose Reference Range is dependent on time and content of last meal. Glucose of more than 200 mg/dL in a nonstressed, ambulatory subject supports the diagnosis of Diabetes Mellitus. Performed By: #### G LULS #### Point of Care testing , Glucose [Mass/volume] in Ser um or PlasmaOrdered By: Art March on 03-08-2025 Glucose [Mass/Vol] 462 mg/dL High 70-100 [facility] Comment on above: ADA recommended refe rence rangeRandom Glucose Reference Range is dependent on time and content of last meal. Glucose of more than 200 mg/dL in a nonstressed, ambulatory subject supports the diagnosis of Diabetes Mellitus. Result Comment: [place] Glucose Reference Range is dependent on time and content of last meal. Glucose of more than 200 mg/dL in a nonstressed, ambulatory subject supports the diagnosis of Diabetes Mellitus. ADA recommended reference range Performed By: #### B HOB, CBC, CMP #### [facility] [address] Glucose [Mass/volume] in Uri ne by Test stripOrdered By: Art March on 03-08-2025 Glucose Test strip (U) [Mass/Vol] >=1000 mg/dL High Normal [facility] Hematocrit [Volume Fraction] of Blood by Automated countOrdered By: Art March on 03-08-2025 Hematocrit (Bld) [Volume fraction] 34.0 % Normal 34.0-46.4 [facility] Comment on above: Performed By: #### B HOB, CBC, CMP #### [address] Hemoglobin Test strip Ql (U) Ordered By: Art March on 03-08-2025 Hemoglobin Ql (U) 3+ High Negative [facility] Hemoglobin [Mass/volume] in BloodOrdered By: Art March on 03-08-2025 Hemoglobin (Bld) [Mass/Vol] 11.1 g/dL Low 11.8-15.4 [facility] Comment on above: Performed By: #### B HOB, CBC, CMP #### [address] Hyaline casts [#/area] in Ur ine sediment by Automated countOrdered By: Art March on 03-08-2025 Hyaline casts Auto (Urine sed) [#/Area] None [LPF] 0-8 [facility] Ketones [Presence] in Urine by Test stripOrdered By: Art March on 03-08-2025 Ketones Ql (U) Negative Normal Negative [facility] Comment on above: Order Comment: Name Collection Type:: Clean-Voided Midstream Performed By: #### A DDONUAPLUS #### [address] Laboratory - Microbiology an d Antimicrobial susceptibilityOrdered By: Marco Jacques [facility] on 03-08-2025 C. albicans DNA RUSSELL+probe Ql (Vag fld) Negative Negative [facility] C. glabrata DNA RUSSELL+probe Ql (Vag fld) Positive Abnormal Negative [facility] Comment on above: Published data demon strate that up to 65% of [place] glabrataidentified in cases of vaginal candidiasis have decreasedsusceptibility to fluconazole.Performed by:[facility] (SHIRA) N. gonorrhoeae DNA RUSSELL+probe Ql (Vag fld) Negative Negative [facility] T. vaginalis DNA RUSSELL+probe Ql (Vag fld) Negative Negative [facility] A. vaginae DNA RUSSELL+probe Ql (Vag fld) High - 2 Abnormal [facility] Bacterial vaginosis associated bacterium 2 DNA RUSSELL+probe Ql (Vag fld) High - 2 Abnormal [facility] Megasphaera sp type 1 DNA RUSSELL+probe Ql (Vag fld) High - 2 Abnormal [facility] Comment on above: Calculate total scor e by adding the 3 individual bacterialvaginosis (BV) marker scores together. Total score isinterpreted as follows:Total score 0-1: Indicates the absence of BV.Total score 2: Indeterminate for BV. Additional clinical data should be evaluated to establish a diagnosis.Total score 3-6: Indicates the presence of BV.Performed by:Javan Funes (SHIRA) Laboratory - Microbiology an d Antimicrobial susceptibilityOrdered By: Ruddy Frey LCSWLuciano on 03-08-2025 Bacteria identified Cx Nom (U) Final report [facility] Bacteria identified Cx Nom (U) Comment [facility] Comment on above: Culture shows less t clancy 10,000 colony forming units of bacteria permilliliter of urine. This colony count is not generally consideredto be clinically significant.Performed by:Javan Teixeira (LYDIA) Leukocyte esterase [Presence ] in Urine by Test stripOrdered By: Art March on 03-08-2025 Leukocyte esterase Test strip Ql (U) Negative Normal Negative [facility] Comment on above: Order Comment: Name Collection Type:: Clean-Voided Midstream Performed By: #### A DDONUAPLUS #### [facility] [address] [place] [address] Leukocytes [#/area] in Urine sediment by Automated countOrdered By: Art March on 03-08-2025 WBC Auto (Urine sed) [#/Area] 5-9 [HPF] High 0-4 [facility] Leukocytes [#/volume] correc mónica for nucleated erythrocytes in Blood by Automated counOrdered By: Art March on 03-08-2025 WBC corrected for nucl RBC Auto (Bld) [#/Vol] 10.7 10*3/uL 3.8-11.6 [facility] Leukocytes [#/volume] in Blo od by Automated countOrdered By: Art March on 03-08-2025 WBC (Bld) [#/Vol] 10.7 10*3/uL Normal 3.8-11.6 [facility] Comment on above: Performed By: #### B HOB, CBC, CMP #### [address] Lymphocytes [#/volume] in Bl ood by Automated countOrdered By: Art March on 03-08-2025 Lymphocytes (Bld) [#/Vol] 4.0 10*3/uL Normal 1.00-4.8 [facility] Comment on above: Performed By: #### B HOB, CBC, CMP #### [address] Lymphocytes/100 leukocytes i n Blood by Automated countOrdered By: Art March on 03-08-2025 Lymphocytes/100 WBC (Bld) 37.5 % Normal . [facility] Comment on above: Performed By: #### B HOB, CBC, CMP #### [address] MCH [Entitic mass] by Automa mónica countOrdered By: Art March on 03-08-2025 MCH (RBC) [Entitic mass] 25.7 pg Normal 24.7-34.3 [facility] Comment on above: Performed By: #### B HOB, CBC, CMP #### [address] MCHC Auto (RBC) [Mass/Vol]Or dered By: Art March on 03-08-2025 MCHC (RBC) [Mass/Vol] 32.6 g/dL 32.0-35.0 [facility] MCV [Entitic volume] by Auto mated countOrdered By: Art March on 03-08-2025 MCV (RBC) [Entitic vol] 78.9 fL Low 80-100 [facility] Comment on above: Performed By: #### B HOB, CBC, CMP #### [address] [place] [address] [place] Monocyte distribution width [Entitic volume] in Blood by AutomatedOrdered By: Art March on 03-08-2025 Monocyte distribution width Auto (Bld) [Entitic vol] 19.83 % 0.00-20.00 [facility] Monocytes [#/volume] in Bloo d by Automated countOrdered By: Art March on 03-08-2025 Monocytes (Bld) [#/Vol] 1.0 10*3/uL High 0.0-0.8 [facility] Comment on above: Performed By: #### B HOB, CBC, CMP #### [address] Monocytes/100 leukocytes in Blood by Automated countOrdered By: Art March on 03-08-2025 Monocytes/100 WBC (Bld) 9.3 % Normal . [facility] Comment on above: Performed By: #### B HOB, CBC, CMP #### [address] Mucus [Presence] in Urine by AutomatedOrdered By: Art March on 03-08-2025 Mucus Auto Ql (U) Rare [LPF] [facility] Neutrophils [#/volume] in Bl ood by Automated countOrdered By: Art March on 03-08-2025 Neutrophils (Bld) [#/Vol] 5.2 10*3/uL Normal 1.8-7.7 [facility] Comment on above: Performed By: #### B HOB, CBC, CMP #### [address] Neutrophils/100 leukocytes i n Blood by Automated countOrdered By: Art March on 03-08-2025 Neutrophils/100 WBC (Bld) 48.8 % Normal . [facility] Comment on above: Performed By: #### B HOB, CBC, CMP #### [address] Nitrite Test strip Ql (U)Ord ered By: Art March on 03-08-2025 Nitrite Ql (U) Negative Negative [facility] No Panel InformationOrdered By: Art March on 03-08-2025 Bedside Glucose Comment Glu2: cleaned meter [facility] Estimated GFR (CKD-EPI) > 60.0 mL/Min [facility] Creatinine Clearance (Chem 114.96 [facility] No Panel InformationOrdered By: Marcoprecious Jacques [facility] on 03-08-2025 Mycoplasma genitalium RUSSELL Negative Negative [facility] No Panel InformationOrdered By: Estrella Sawyer on 03-08-2025 Bedside Glucose #2 Comment Cleaned meter [facility] Nucleated erythrocytes [Pres ence] in Blood by Automated countOrdered By: Art March on 03-08-2025 Nucleated RBC Auto Ql (Bld) 0.1 /100{WBC} 0-0.5 [facility] Platelet mean volume [Entiti c volume] in Blood by Automated countOrdered By: Art March on 03-08-2025 Platelet mean volume (Bld) [Entitic vol] 7.5 fL Normal 6.3-10.7 [facility] Comment on above: Performed By: #### B HOB, CBC, CMP #### [facility] [address] [place] [address] Platelets [#/volume] in Bloo d by Automated countOrdered By: Art March on 03-08-2025 Platelets (Bld) [#/Vol] 485 10*3/uL High 150-450 [facility] Comment on above: Performed By: #### B HOB, CBC, CMP #### [facility] [address] [place] [address] Potassium [Moles/volume] in Serum or PlasmaOrdered By: Art March on 03-08-2025 Potassium [Moles/Vol] 4.4 mmol/L Normal 3.5-5.1 [facility] Comment on above: Performed By: #### B HOB, CBC, CMP #### [facility] [address] [place] [address] [place] Protein Test strip (U) [Mass /Vol]Ordered By: Art March on 03-08-2025 Protein (U) [Mass/Vol] Negative Negative [facility] Protein [Mass/volume] in Ser um or PlasmaOrdered By: Art March on 03-08-2025 Protein [Mass/Vol] 6.7 g/dL Normal 6.4-8.9 [facility] Comment on above: Performed By: #### B ARLENE CBC, CMP #### [address] Serum globulin measurement b y calculation (mass/volume)Ordered By: Art March on 03-08-2025 Globulin (S) [Mass/Vol] 2.8 g/dL Normal [facility] Comment on above: Performed By: #### B HOB CBC, CMP #### [address] Serum or plasma albumin/glob ulin mass ratioOrdered By: Art March on 03-08-2025 Albumin/Globulin [Mass ratio] 1.4 {ratio} Normal [facility] Comment on above: Performed By: #### B ARLENE CBC, CMP #### [address] Serum or plasma anion gap de terminationOrdered By: Art March on 03-08-2025 Anion gap [Moles/Vol] 12.6 mmol/L Normal 6.0-15.0 [facility] Comment on above: Performed By: #### B ARLENE CBC, CMP #### [address] Sodium [Moles/volume] in Ser um or PlasmaOrdered By: Art March on 03-08-2025 Sodium [Moles/Vol] 129 mmol/L Low 136-145 [facility] Comment on above: Performed By: #### B ARLENE, CBC, CMP #### [address] Specific gravity Test strip (U) [Rel density]Ordered By: Art March on 03-08-2025 Specific gravity (U) [Rel density] 1.026 1.001-1.03 0 [facility] Urea nitrogen [Mass/volume] in Serum or PlasmaOrdered By: Art March on 03-08-2025 Urea nitrogen [Mass/Vol] 12 mg/dL Normal 7-25 [facility] Comment on above: Performed By: #### B HOB CBC, CMP #### [facility] [address] [id number] [facility] Urobilinogen Test strip (U) [Mass/Vol]Ordered By: Art March on 03-08-2025 Urobilinogen (U) [Mass/Vol] Normal mg/dL Normal [facility] pH of Urine by Test stripOrd ered By: Art March on 03-08-2025 pH (U) 5.0 [pH] Normal 5.0-9.0 [facility] Comment on above: Order Comment: Name Collection Type:: Clean-Voided Midstream Performed By: #### A DDONUAPLUS #### [facility] [address] Comprehensive metabolic 2000 panelOrdered By: Ruddy DICKERSON on 03-07-2025 Albumin [Mass/Vol] 4.3 g/dL 3.9-4.9 [facility] ALP [Catalytic activity/Vol] 122 U/L High 44-121 [facility] ALT [Catalytic activity/Vol] 8 U/L 0-32 [facility] AST [Catalytic activity/Vol] 15 U/L 0-40 [facility] Bilirubin [Mass/Vol] 0.2 mg/dL 0.0-1.2 [facility] Calcium [Mass/Vol] 9.5 mg/dL 8.7-10.2 [facility] Chloride [Moles/Vol] 98 mmol/L 96-106 [facility] CO2 [Moles/Vol] 19 mmol/L Low 20-29 [facility] Creatinine [Mass/Vol] 0.67 mg/dL 0.57-1.00 [facility] GFR/1.73 sq M.predicted among non-blacks MDRD (S/P/Bld) [Vol rate/Area] 112 mL/min/{1.73_m2} >59 [facility] Globulin (S) [Mass/Vol] 2.3 g/dL 1.5-4.5 [facility] Glucose [Mass/Vol] 557 mg/dL Off scale high 70-99 [facility] Comment on above: Verified by repeat analysisGlucose result may not be accurate due to prolonged contactbetween serum or plasma and the red cells. If result isinconsistent with clinical condition resubmit specimen forverification and to rule out specimen handling problemsfor which this test is very sensitive. Performed by:Javan AGUILAR) Potassium [Moles/Vol] TNP [facility] Comment on above: Test not performed. Serum was in contact with cells when receivedwhich will make the result inaccurate.Performed by:Javan AGUILAR) Protein [Mass/Vol] 6.6 g/dL 6.0-8.5 [facility] Sodium [Moles/Vol] 134 mmol/L 134-144 [facility] Urea nitrogen [Mass/Vol] 11 mg/dL 6-24 [facility] Urea nitrogen/Creatinine [Mass ratio] 16 mg/mg 9-23 [facility] Hemoglobin A1c/Hemoglobin.to frantz in BloodOrdered By: Ruddy DICKERSON on 03-07-2025 HbA1c (Bld) [Mass fraction] 14.5 % High 4.8-5.6 [facility] Comment on above: Prediabetes: 5.7 - 6 .4 Diabetes: >6.4 Glycemic control for adults with diabetes: <7.0Performed by:Javan AGUILAR) Laboratory - Chemistry and C hemistry - challengeOrdered By: Ruddy Goodson on 03-07-2025 Cholesterol [Mass/Vol] 184 mg/dL 100-199 [facility] Cholesterol in HDL [Mass/Vol] 39 mg/dL Low >39 [facility] Cholesterol in LDL [Mass/Vol] 71 mg/dL 0-99 [facility] [facility] Cholesterol in LDL/Cholesterol in HDL [Mass ratio] 1.8 {ratio} 0.0-3.2 [facility] Comment on above: LDL/HDL Ratio Men Wo men 1/2 Avg.Risk 1.0 1.5 Avg.Risk 3.6 3.2 2X Avg.Risk 6.2 5.0 3X Avg.Risk 8.0 6.1Performed by:[facility] [place] [facility] ([place]) Cholesterol in VLDL [Mass/Vol] 74 mg/dL High 5-40 [facility] Free T4 [Mass/Vol] 1.21 ng/dL 0.82-1.77 [facility] Triglyceride [Mass/Vol] 473 mg/dL High 0-149 E [facility] TSH Qn 1.530 uIU/mL 0.450-4.50 [address] [facility] Bilirubin Ql (U) Negative Negative [facility] Glucose Ql (U) 3+ Abnormal Negative [place] [facility] Ketones Ql (U) Trace Abnormal Negative [place] [facility] pH (U) 7.0 [pH] 5.0-7.5 [facility] Specific gravity (U) [Rel density] >=1.030 Abnormal 1.005-1.03 [address] [facility] Urobilinogen (U) [Mass/Vol] 0.2 mg/dL 0.2-1.0 [facility] Laboratory - Hematology and Cell countsOrdered By: Ruddy DICKERSON on 03-07-2025 Hemoglobin Ql (U) Negative Negative [place] [facility] Basophils (Bld) [#/Vol] 0.1 10*3/uL 0.0-0.2 [facility] Basophils/100 WBC (Bld) 1 % Not Estab. E [facility] Eosinophils (Bld) [#/Vol] 0.2 10*3/uL 0.0-0.4 [facility] Eosinophils/100 WBC (Bld) 2 % Not Estab. [facility] Erythrocyte distribution width (RBC) [Ratio] 13.8 % 11.7-15.4 [facility] Hematocrit (Bld) [Volume fraction] 37.0 % 34.0-46.6 [facility] Hemoglobin (Bld) [Mass/Vol] 11.3 g/dL 11.1-15.9 [facility] Immature granulocytes (Bld) [#/Vol] 0.0 10*3/uL 0.0-0.1 [facility] Immature granulocytes/100 WBC (Bld) 0 % Not Estab. [facility] Lymphocytes (Bld) [#/Vol] 2.3 10*3/uL 0.7-3.1 [facility] Lymphocytes/100 WBC (Bld) 24 % Not Estab. [facility] MCH (RBC) [Entitic mass] 25.9 pg Low 26.6-33.0 [facility] MCHC (RBC) [Mass/Vol] 30.5 g/dL Low 31.5-35.7 [facility] MCV (RBC) [Entitic vol] 85 fL 79-97 [facility] Monocytes (Bld) [#/Vol] 0.6 10*3/uL 0.1-0.9 [facility] Monocytes/100 WBC (Bld) 6 % Not Estab. [facility] Neutrophils (Bld) [#/Vol] 6.3 10*3/uL 1.4-7.0 [facility] Neutrophils/100 WBC (Bld) 67 % Not Estab. [facility] Platelets (Bld) [#/Vol] 480 10*3/uL High 150-450 [facility] RBC (Bld) [#/Vol] 4.37 10*6/uL 3.77-5.28 [facility] WBC (Bld) [#/Vol] 9.4 10*3/uL 3.4-10.8 [facility] Laboratory - Specimen inform ationOrdered By: Ruddy DICKERSON on 03-07-2025 Appearance (U) Clear Clear [facility] Color (U) Yellow Yellow [facility] Laboratory - UrinalysisOrder ed By: Ruddy DICKERSON on 03-07-2025 Bacteria LM.HPF (Urine sed) [#/Area] None seen None seen/Few [facility] Casts LM Ql (Urine sed) None seen None seen E [facility] Epithelial cells LM.HPF (Urine sed) [#/Area] 0-10 0 - 10 [facility] RBC LM.HPF (Urine sed) [#/Area] None seen 0 - 2 [facility] WBC LM.HPF (Urine sed) [#/Area] 11-30 Abnormal 0 - 5 [facility] Leukocyte esterase Test strip Ql (U) Negative Negative [facility] Microscopic observation LM Nom (Urine sed) Comment [facility] Comment on above: Microscopic follows if indicated.Performed by:Javan AGUILAR) Microscopic observation LM Nom (Urine sed) See below: [facility] Comment on above: Microscopic was leo cated and was performed.Performed by:Javan AGUILAR) Nitrite Ql (U) Negative Negative [facility] Protein Ql (U) Negative Negative/T race [facility] No Panel InformationOrdered By: Ruddy DICKERSON on 03-07-2025 Comment [facility] Comment on above: This specimen has re flexed to a Urine Culture.Performed by:Javan AGUILAR) HIV 1+2 Ab+HIV1 p24 Ag [Pres ence] in Serum or Plasma by ImmunoassayOrdered By: Marco DODSON on 03-05-2025 HIV 1+2 Ab+HIV1 p24 Ag IA Ql Non-Reactive Non Reactive [facility] Comment on above: HIV-1/HIV-2 antibodi es and HIV-1 p24 antigen were NOT detected.There is no laboratory evidence of HIV infection.HIV NegativePerformed by:Javan AGUILAR) Laboratory - Microbiology an d Antimicrobial susceptibilityOrdered By: Marco DODSON on 03-05-2025 Reagin Ab RPR Ql (S) Non-Reactive Non Reactive [facility] HCV Ab IA Ql Non-Reactive Non Reactive [facility] HCV Ab IA Ql Comment [facility] Comment on above: Not infected with HC V unless early or acute infection issuspected (which may be delayed in an immunocompromisedindividual), or other evidence exists to indicate HCV infection.Performed by:Javan AGUILAR) CNCSunita 01-21-2025 CNCO Letter Text Normal [facility] CNOVon 01-14-2025 CNOV Office Visit (OBGYWM ) ----- ANA FULTON ([id number]) 1980 F [facility] Date Time Provider Department 01/14/25 10:30 AM YULIET JOHNSON OBGYWM During your visit today, we recorded the following information about you: Blood pressure Weight Last Period 128/66 72.4 kg 12/14/24 Yuliet Johnson APRN.TUNNEL KILN OPERATOR 01/14/2025 11:18 AM Signed Patient declined senior analytic consultant. Obstetrics and Gynecology [facility] LATENT FINGERPRINT EXAMINER Visit Subjective Recording using [facility] [employer] software for draft documentation of the visit was discussed with the patient/authorized cash applications representative; all questions welcomed and answered. Patient/authorized cash applications representative agreed to proceed CHIEF COMPLAINT: The patient is a 44-year-old female with a history of diabetes presenting with prolonged menstrual bleeding and pelvic pain. HPI: Menstrual Irregularities - Reports a current menstrual period lasting approximately 9 days, which is longer than her usual 4-5 day duration. - Describes the bleeding as regular in flow, requiring tampon changes every couple of hours, and notes the presence of clots. - Denies any significant increase in cramping, experiencing only her usual mild cramps in the lower abdomen and back. - This is the first episode of prolonged bleeding; her periods are typically regular. - Uses Essure for control. Pelvic Pain - Reports feeling a hard thing inside the vaginal canal, especially around her period time. - Experiences dyspareunia, noting that some days intercourse is painful and other days it is not. - Feels something hard when inserting a tampon, requiring her to move it around. Urinary Symptoms - Reports occasional burning during urination, but not consistently. - Experiences urgency, stating, if I got to pee, I got to pee right now. Stomach Pain - Reports frequent stomach pain, unsure if it is related to her diabetes or other causes. - Has a scheduled appointment with her primary care physician to address this issue. Past Screenings - Pap smears are usually performed by her primary care physician. - Has not had a mammogram or colonoscopy yet. HISTORY: OB History Gravida4 Para3 Term3 Preterm0 AB1 Living3 SAB0 IAB1 Ectopic0 Multiple0 Live Births3 Yarn Hauler History LMP: 12/14/2024 (Exact Date), Having periods Age at Menarche: Age at First : Age at Menopause: Yarn Hauler History Comments: Sexual Activity: Yes; Male; Essure Procedure Done Contraception: Surgical PAST MEDICAL HISTORY Diagnosis Date Abnormal glandular Papanicolaou smear of cervix Abn. Pap smear (cervix) Alcohol abuse Diabetes mellitus (HCC) Pt reported GERD (gastroesophageal reflux disease) 03/02/2012 Migraine PAST SURGICAL HISTORY Procedure Laterality Date HYSTEROSCOPY BI TUBE OCCLUSION W/PERM IMPLNTS 04/03/08 Essure sterilization LAPS SURG CHOLECYSTECTOMY W/CHOLANGIOGRAPHY 10/23/13 normal IOC LEEP PROCEDURE (LATENT FINGERPRINT EXAMINER DEPT)_*FL 2004 TONSILLECTOMY PRIMARY/SECONDARY Tonsillectomy TUBAL LIGATION FAMILY HISTORY Problem Relation Age of Onset Thyroid Mother Migraines Mother other (Other) Sister half sister other (Other) Sister half sister Heart Maternal Grandmother other (lung ca) Maternal Grandmother Cancer Maternal Grandfather LUNG CANCER Social History Tobacco Use Smoking status: Some Days Current packs/day: 1.00 Types: Cigarettes Smokeless tobacco: Never Tobacco comments: 4 yrs a pack a day Vaping Use Vaping status: Never Used Substance Use Topics Alcohol use: Not Currently Comment: used 2 months ago Drug use: No Current Outpatient Medications Medication Sig glipiZIDE (GLUCOTROL XL) 5 mg 24 hr tablet Take 1 tablet by mouth once daily. metFORMIN (GLUCOPHAGE) 1,000 mg tablet Take 1 tablet by mouth every 12 hours. BORIC ACID MISC as needed. norethindrone (AYGESTIN) 5 mg tablet Take 1 tablet TID until bleeding stops for 24 hours, then 1 tablet BID x 3 days, then 1 tablet daily x 3 days. No current facility-administered medications for this visit. ALLERGIES Allergen Reactions Acetaminophen Vomiting Vicodin [Hydrocodon* Vomiting REVIEW OF SYSTEMS: Gastrointestinal: (+) abdominal pain Genitourinary: (+) prolonged menstrual bleeding, (+) vaginal blood clots, (+) pelvic cramping, (+) dysuria, (+) urinary urgency Musculoskeletal: (+) low back pain Objective SENSITIVE EXAM: The sensitive examination was discussed with the Patient or Patient's Authorized Outsole Cementer Machine. As applicable, any other physician, advance practice provider, medical student, or other health professional student that will be observing or involved in the sensitive examination for educational or training purposes was discussed with the Patient or Authorized Outsole Cementer Machine. The Patient or Authorized Outsole Cementer Machine has agreed to proceed with the sensitive examination. (Sensitive examination includes inspection an (more content not included)... Normal [facility] HIGH RISK HUMAN PAPILLOMA MARCIA (HPV), PCR FOR DETECTION AND GENOTYPINGon 01-14-2025 HPV 16 Ag Ql (Unsp spec) Not detected Normal Not detected [facility] Comment on above: Order Comment: Speci men Type: FLUID SPECIMEN Ordering Facility: [facility] Address: [address] [place] [address] Performed By: #### H PVHRT #### [facility] CLIA [id number] [address] [place] [address] [place] HPV 18 Ag Ql (Unsp spec) Not detected Normal Not detected [facility] Comment on above: Order Comment: Speci men Type: FLUID SPECIMEN Ordering Facility: [facility] Address: [address] [place] [address] Performed By: #### H PVHRT #### [facility] CLIA [id number] [address] [place] [address] [place] HPV 31+33+35+39+45+51+52+56 +58+59+66+68 DNA RUSSELL+probe Ql (Cvx) Not detected Normal Not detected [facility] Comment on above: Order Comment: Speci men Type: FLUID SPECIMEN Ordering Facility: [facility] Address: [address] [place] [address] Result Comment: High Risk HPV Other Type includes HPV types 31, 33, 35, 39, 45, 51, 52, 56, 58, 59, 66 and 68. Performed By: #### H PVHRT #### [facility] CLIA [id number] [address] [place] [address] [place] PAP TESTon 01-14-2025 ADEQUACY Normal [facility] Comment on above: Order Comment: Speci men Type: FLUID SPECIMEN Ordering Facility: [facility] Address: [address] [place] [address] Result Comment: Sati sfactory for interpretation. Transformation zone present Performed By: #### L [id number] #### [facility] CLIA [id number] [address] [place] [address] [place] CASE REPORT Normal [facility] Comment on above: Order Comment: Speci men Type: FLUID SPECIMEN Ordering Facility: [facility] Address: [address] [place] [address] Result Comment: Gyne cologic Cytology Report Case: [id number] Authorizing Provider: Yuliet Johnson APRN.TUNNEL KILN OPERATOR Collected: 01/14/2025 11:12 AM Ordering Location: OB/Gynecology Received: 01/14/2025 04:23 PM First Screen: Otoniel Lambert, ASHANTI, ASCP Pathologist: Shaista Daley MD Specimen: Pap Test, ThinPrep, Cervix Performed By: #### L [id number] #### [facility] CLIA [id number] [address] [place] [address] [place] CLINICAL HISTORY, CYTOLOGY, LATENT FINGERPRINT EXAMINER Routine Exam Normal [facility] Comment on above: Order Comment: Speci men Type: FLUID SPECIMEN Ordering Facility: [facility] Address: [address] [place] [address] Performed By: #### L [id number] #### [facility] CLIA [id number] [address] [place] [address] [place] CYTOLOGY PAP OTHER INTERPRETATION Predominance of coccobacilli consistent with shift in vaginal fco. Normal [facility] Comment on above: Order Comment: Speci men Type: FLUID SPECIMEN Ordering Facility: [facility] Address: [address] [place] [address] Performed By: #### L [id number] #### [facility] CLIA [id number] [address] [place] [address] [place] FINAL PERFORMING LAB Normal [facility] Comment on above: Order Comment: Speci men Type: FLUID SPECIMEN Ordering Facility: [facility] Address: [address] [place] [address] Result Comment: Tech nical component, die cast technician screening performed at: [facility], [address] [place] [address] [place] [address] CLIA: [id number] Diagnostic interpretation performed at: [facility], [address] [place] [address] [place] [address] CLIA# [id number] Architect Intern: Robert Rico MD Performed By: #### L [id number] #### [facility] CLIA [id number] [address] [place], [place] [id number] [place] INTERPRETATION, CYTOLOGY, LATENT FINGERPRINT EXAMINER Abnormal [facility] Comment on above: Order Comment: Speci men Type: FLUID SPECIMEN Ordering Facility: [facility] Address: [address] [place] [address] Result Comment: Atyp ical squamous cells of undetermined significance (ASC-US). at 1327 EDT Performed By: #### L [id number] #### [facility] CLIA [id number] [address] [place] [address] [place] LMP 12/14/2024 Normal [facility] Comment on above: Order Comment: Speci men Type: FLUID SPECIMEN Ordering Facility: [facility] Address: [address] [place] [address] Performed By: #### L [id number] #### [facility] CLIA [id number] [address] [place], [place] [id number] [place] PAP DISCLAIMER COMMENT The Pap Smear is a screening test for cervical cancer. False negative results occur with all screening tests, emphasizing the need for rescreening at recommended intervals, and clinical correlation. Normal [facility] Comment on above: Order Comment: Speci men Type: FLUID SPECIMEN Ordering Facility: [facility] Address: [address] [place] [address] Performed By: #### L [id number] #### [facility] CLIA [id number] [address] [place], [place] [address] [place] PAP GENERAL CATEGORIZATION Epithelial Cell Abnormality Normal [facility] Comment on above: Order Comment: Speci men Type: FLUID SPECIMEN Ordering Facility: [facility] Address: [address] [place] [address] Performed By: #### L [id number] #### [facility] CLIA [id number] [address] [place] [address] [place] PAP LINE HELPER COMMENT This specimen has be en analyzed by the FDA-approved [employer] System, which uses digital imaging and an enhanced artificial intelligence image analysis algorithm to identify del cid of interest on the microscopic slide, to assist the program aide and pathologist in evaluating cells on ThinPrep Pap tests. Following analysis, del cid of interest on the microscopic slide selected by the algorithm are reviewed by a program aide. If a sample requires hierarchical review, the pathologist will review the same del cid of interest selected by the algorithm prior to final interpretation. Normal [facility] Comment on above: Order Comment: Speci men Type: FLUID SPECIMEN Ordering Facility: [facility] Address: [address] [place] [address] Performed By: #### L [id number] #### [facility] CLIA [id number] [address] [place] [address] [place] ALCOHOL-BLOOD MEDICALon 12-06 Ethanol [Mass/Vol] 122 mg/dL High 0 - 50 [facility] Comment on above: Performed By: #### 2 [id number] #### [facility],[address] [place], [place] [id number] CBC + DIFFon 12-31-2024 Baso # 0.02 x10EE3/UL Normal 0.00 - 0.10 [facility] Comment on above: Performed By: #### 2 09699 #### [facility],[address] [place], [place] [id number] Basophils/100 WBC (Bld) 0.2 % Normal 0.0 - 2.0 [facility] Comment on above: Performed By: #### 2 [id number] #### [facility],[address] [place] [address] CBC + DIFF Normal [facility] Comment on above: Result Comment: CBC- COMPLETE BLOOD COUNT Performed By: #### 2 [id number] #### [facility],[address] [place] [address]3575 EO # 0.11 x10EE3/UL Normal 0.00 - 0.50 [facility] Comment on above: Performed By: #### 2 19011 #### [facility],[address] [place] [address] 13027 Eosinophils/100 WBC (Bld) 1.0 % Normal 0.0 - 7.0 [facility] Comment on above: Performed By: #### 2 47071 #### [facility],[address] [place] [address]185 Erythrocyte distribution width (RBC) [Ratio] 14.8 % Normal 12.0 - 15.6 [facility] Comment on above: Performed By: #### 2 05559 #### [facility],[address] [place] [address]018 Hematocrit (Bld) [Volume fraction] 35.2 % Normal 34.0 - 46.0 [facility] Comment on above: Performed By: #### 2 [id number] #### [facility],[address] [place] [address] 60392 Hemoglobin (Bld) [Mass/Vol] 12.4 g/dL Normal 12.0 - 16.0 [facility] Comment on above: Performed By: #### 2 46316 #### [facility],[address] [place] [address] 95758 Lymph # 3.20 x10EE3/UL High 0.80 - 2.80 [facility] Comment on above: Performed By: #### 2 79397 #### [facility],[address] [place] [address]296 Lymphocytes/100 WBC (Bld) 29.4 % Normal 20.0 - 45.0 [facility] Comment on above: Performed By: #### 2 21489 #### [facility],[address] [place] [address] MANUAL DIFF N/A Normal [facility] Comment on above: Performed By: #### 2 88794 #### [facility],[address] [place] [address] MCH (RBC) [Entitic mass] 29 pg Normal 27 - 33 [facility] Comment on above: Performed By: #### 2 64532 #### [facility],[address] [place] [address] MCHC 35 X10 3 Normal 32 - 36 [facility] Comment on above: Performed By: #### 2 06686 #### [facility],[address] [place] [address] MCV (RBC) [Entitic vol] 81 fL Normal 80 - 99 [facility] Comment on above: Performed By: #### 2 87600 #### [facility],[address] [place] [address] [place] # 0.71 x10EE3/UL Normal 0.20 - 1.00 [facility] Comment on above: Performed By: #### 2 42533 #### [facility],[address] [place] [address] MONOS % 6.6 % Normal 0.0 - 10.0 [facility] Comment on above: Performed By: #### 2 91574 #### [facility],[address] [place], [place] [id number] Morphology [employer] (Bld) [Interp] N/A Normal [facility] Comment on above: Performed By: #### 2 14806 #### [facility],[address] [place], [place] [id number] Neut # 6.83 x10EE3/UL Normal 1.50 - 7.10 [facility] Comment on above: Performed By: #### 2 01592 #### [facility],[address] [place] [address]1804 Neutrophils/100 WBC (Bld) 62.8 % Normal 46.0 - 76.0 [facility] Comment on above: Performed By: #### 2 73203 #### [facility],[address] [place] [address] 95570 PLATELET 516 x10EE3/UL High 150 - 450 [facility] Comment on above: Performed By: #### 2 56172 #### [facility],[address] [place] [address] 58707 Platelet mean volume (Bld) [Entitic vol] 7.5 fL Normal 6.6 - 10.5 [facility] Comment on above: Result Comment: AUTO MATED DIFFERENTIAL Performed By: #### 2 48179 #### [facility],[address] [place] [address] 32068 RBC 4.35 x 10EE6/UL Normal 4.10 - 5.30 [facility] Comment on above: Performed By: #### 2 65300 #### [facility],[address] [place] [address] 91994 WBC 10.9 x 10EE3/UL High 4.5 - 10.8 [facility] Comment on above: Performed By: #### 2 63118 #### [facility],[address] [place] [address] 23262 CMP with eGFRon 12-31-2024 AGE 44 years Normal [facility] Comment on above: Performed By: #### 2 01540 ####[facility],[address] [place] [address] 36488 Albumin [Mass/Vol] 3.3 g/dL Low 3.4 - 5.0 [facility] Comment on above: Performed By: #### 2 61559 ####[facility],[address] [place] [address] 83173 Albumin/Globulin [Mass ratio] 0.9 {ratio} Normal 0.9 - 1.6 [facility] Comment on above: Performed By: #### 2 64826 ####[facility],[address] [place] [address] 98461 ALK PHOS 123 U/L High 46 - 116 [facility] Comment on above: Performed By: #### 2 76514 ####[facility],[address] [place] [address] 60914 ALT [Catalytic activity/Vol] 13 U/L Low 16 - 63 [facility] Comment on above: Performed By: #### 2 83881 ####[facility],[address] [place] [address] 32000 Anion gap [Moles/Vol] 22 mmol/L High 10 - 20 [facility] Comment on above: Performed By: #### 2 54120 ####[facility],[address] [place] [address] 57079 AST [Catalytic activity/Vol] 10 U/L Low 13 - 39 [facility] Comment on above: Performed By: #### 2 [id number] ####[facility],[address] [place] [address] B/C RATIO 15 ratio Normal 0 - 30 [facility] Comment on above: Performed By: #### 2 81934 ####[facility],[address] [place] [address] 06069 Bilirubin [Mass/Vol] 0.4 mg/dL Normal 0.2 - 1.0 [facility] Comment on above: Performed By: #### 2 71489 ####[facility],[address] [place] [address] 47236 Calcium [Mass/Vol] 8.8 mg/dL Normal 8.5 - 10.1 [facility] Comment on above: Performed By: #### 2 54624 ####[facility],[address] [place] [address]505 Chloride [Moles/Vol] 97 mmol/L Low 98 - 107 [facility] Comment on above: Performed By: #### 2 09216 ####[facility],[address] [place] [address] 01808 CMP with eGFR Normal [facility] Comment on above: Result Comment: COMP REHENSIVE METABOLIC PANEL Performed By: #### 2 50013 ####[facility],[address] [place] [address] 43240 CO2 [Moles/Vol] 17.9 mmol/L Low 21.0 - 32.0 [facility] Comment on above: Performed By: #### 2 82549 ####[facility],[address] [place], [place] [id number] Creatinine [Mass/Vol] 0.73 mg/dL Normal 0.55 - 1.02 [facility] Comment on above: Performed By: #### 2 20003 ####[facility],[address] [place] [address] GFR/1.73 sq M.predicted among non-blacks MDRD (S/P/Bld) [Vol rate/Area] mL/min/{1.73_m2} Normal 60 - 999 [facility] Comment on above: Performed By: #### 2 16307 ####[facility],[address] [place] [address] Result Comment: ACCO RDING TO THE NATIONAL KIDNEY DISEASE EDUCATION PROGRAM(NKDE), A NORMAL eGFR IS A VALUE GREATER THAN OR EQUAL TO 60 ML/MIN/1.73 SQ METERS. CHRONIC KIDNEY DISEASE: <60mL/MIN/1.73 SQ METERS KIDNEY FAILURE: <15mL/MIN/1.73 SQ METERS THIS TEST SHOULD ONLY BE USED FOR PATIENTS 18 YEARS OF AGE AND OLDER. Globulin (S) [Mass/Vol] 3.7 g/dL Normal 1.5 - 3.8 [facility] Comment on above: Performed By: #### 2 63014 ####[facility],[address] [place], [place] [id number] Glucose [Mass/Vol] 542 mg/dL Critically high 74 - 106 J [facility] Comment on above: Result Comment: { CA LLED TO ARNAUD JJ BY SO AT 2038 { READ BACK BY ARNAUD JJ RA AT 2039 Performed By: #### 2 06808 ####[facility],[address] [place] [address]20 Potassium [Moles/Vol] 3.8 mmol/L Normal 3.5 - 5.1 [facility] Comment on above: Performed By: #### 2 10304 ####[facility],[address] [place] [address] 09220 Protein [Mass/Vol] 7.0 g/dL Normal 6.4 - 8.2 [facility] Comment on above: Performed By: #### 2 99908 ####[address] [address] Sodium [Moles/Vol] 133 mmol/L Low 136 - 145 [facility] Comment on above: Performed By: #### 2 46104 ####[facility],[address] [place] [address] 82563 Urea nitrogen [Mass/Vol] 11 mg/dL Normal 7 - 18 [facility] Comment on above: Performed By: #### 2 38516 ####[address] [address] ED MED ADMINISTRATION DETAIL on 12-31-2024 ED MED ADMINISTRATION DETAIL Electrical Worker Medication Administration Record [address] [address] [id number] 12/31/2024 Patient: ANA FULTON Sex: Female : 1980 Age: 44y MEASUREMENTS: Wt: 67.1 kg, Ht/Miguel: 66.0 in, BMI: 23.89 ALLERGIES: Vicodin Medication Ordered Medication Administration Date/Time IV NS 0.9 % 1000 19:24 12/31 IV NS 0.9 % 1000 mL started in bag#1 1000 mL at Started mL at 999 mL/hr 999 mL/hr via Site# 1. Allergies verified and confirmed 5 rights. IV 19:24 12/31/2024 (NOW x1) patency established. IV site checked: no pain, redness, or swelling. Leny Arevalo R.N. IV flushed thoroughly pre-medication administration. Information Stopped reviewed with patient. Verbalizes understanding. - 19:26 Leny 23:27 12/31/2024 Lynnette Arevalo R.N. Scanned 23:12/31 Medication Discontinued: bag #1 infused upon discharge. Total amount infused: 1000 mL. IV patency established. IV site checked: no pain, redness, or swelling. IV flushed thoroughly post-medication administration. - 23:27 Leny Arevalo R.N. Zofran IVP 4 mg 19:20 12/31 Zofran IVP 4 mg given via Site# 1. Allergies verified Given (NOW x1) and confirmed 5 rights. IV patency established. IV site checked: no 19:20 12/31/2024 pain, redness, or swelling. IV flushed thoroughly pre-medication Leny Arevalo R.N. administration. IVP given by nurse. Information reviewed with Scanned patient. Verbalizes understanding. - 19:21 Leny Arevalo R.N. Insulin Regular Completed Human IVP 7 unit 21:59 12/31/2024 Leny Arevalo R.N. 1 of 2 Electrical Worker Medication Ordered Medication Administration Date/Time Order Comments: 21:58 12/31/2024 discontinued verbal order per Dr. Locke pts glucose currently at 297 Leny Arevalo R.N. 21:59 12/31/2024 Order Completed. Leny Arevalo R.N. Zofran IVP 4 mg 22:47 12/31 Zofran IVP 4 mg Given (NOW x1) given via Site# 1. Allergies 22:47 12/31/2024 verified and confirmed 5 rights. Leny Arevalo R.N. IV patency established. IV site Scanned checked: no pain, redness, or swelling. IV flushed thoroughly pre-medication administration. IVP given by nurse. Information reviewed with patient. Verbalizes understanding. - 22:49 Leny Arevalo R.N. Acetaminophen 22:47 12/31 Acetaminophen Given (Tylenol) PO 650 (Tylenol) PO 650 mg given. 22:47 12/31/2024 mg (NOW x1) Allergies verified and confirmed Leny Arevalo R.N. 5 rights. Information reviewed Scanned with patient. Verbalizes understanding. - 22:47 Leny Arevalo R.N. 2 of 2 Normal [facility] ED NURSES CLINICAL NOTEon ED NURSES CLINICAL NOTE Nurse Narrative Nurse Clinical Narrative [facility] [address] [place] [address] [phone] 12/31/2024 17:01:00 Patient: ANA FULTON Sex: Female : 1980 Age: 44y Disposition: Discharge to Home Disposition Decision Time: 23:14 12/31/2024 Departure Time: 23:29 12/31/2024 TRIAGE Arrived by private vehicle. Historian: (patient). Accompanied by friend. Primary physician (troy). 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 Triage time: 17:07 12/31/2024. Acuity: LEVEL 3. Chief Complaint: ABDOMINAL PAIN. ABNORMAL LAB (elevated blood sugar 500+). The patient has had weakness. SEPSIS SCREEN: NEGATIVE. SIRS criteria negative. No possible sources of infection. -- 17:17 12/31/24 WESLY Appiah R.N. 17:12/31/24. BP: 103/59 MAP: 74. HR: 117. RR: 16. O2 saturation: 95% Temperature: 98.6 F. Pain level now 0/10. Describes the pain as pressure and diffuse. -- 17:15 12/31/24 WESLY Appiah R.N. Measurements: 17:12/31/24 Wt: 67.1 kg, Ht/Miguel: 66.0 in, BMI: 23.89 -- 17:12/31/24 WESLY Appiah R.N. Medications: glipizide 2.5 mg tablet: 1 tablet once a day. -- 17:12/31/24 WESLY Appiah R.N. esomeprazole magnesium 20 mg capsule,delayed release: 20 mg once a day. -- 17:19 12/31/24 WESLY Appiah R.N. 1 of 4 Nurse Narrative metformin 500 mg tablet: 1 tablet twice a day. -- 17:19 12/31/24 WESLY Appiah R.N. Allergies: Vicodin -- 17:13 12/31/24 WESLY Appiah R.N. Problems: Diabetes Mellitus -- 17:13 12/31/24 WESLY Appiah R.N. Gastroesophageal Reflux Disease -- 17:13 12/31/24 WESLY Appiah R.N. Surgeries: hiatal hernia -- 17:14 12/31/24 WESLY Appiah R.N. Cholecystectomy -- 17:12/31/24 WESLY Appiah R.N. Tonsillectomy Adenoidectomy -- 17:12/31/24 WESLY Appiah R.N. History 17:12/31/24. SOCIAL HX: Current some days heavy tobacco smoker- less than 1 pack per day. Occasional alcohol use. No drug use. The patient has not traveled outside the [place] Infectious disease exposure: No infectious disease exposure. ABUSE ASSESSMENT: The patient answered yes to the question(s) Do you feel safe in your home? and no to the question(s) Are you afraid to go home?. SELF HARM ASSESSMENT: Self harm assessment was performed. The patient answered no to the question(s) Have you recently felt down, depressed, or hopeless? and Do you have thoughts of harming or killing yourself?. FALL RISK ASSESSMENT: Fall risk assessment completed. No risk factors identified. -- 17:17 12/31/24 WESLY Appiah R.N. Interventions 17:12/31/24. Identification band and allergy band on patient. -- 17:12/31/24 WESLY Appiah R.N. 2 of 4 Nurse Narrative PHYSICAL ASSESSMENT 19:42 12/31/24. GENERAL / NEURO / PSYCH: Alert. Oriented X 4. Appears in no acute distress. HEENT: Pupils equal, round and reactive to light. Mucous membranes are pink. RESPIRATORY: Respirations not labored. CVS: Normal sinus rhythm noted. Capillary refill less than 2 seconds. Pulses within normal limits. GI / : Abdomen soft and normal bowel sounds. Abdominal tenderness in the left lower quadrant. SKIN: Skin intact. Skin is warm and dry. Normal skin turgor. -- 19:42 12/31/24 EDT Leny Arevalo R.N. NURSING PROGRESS NOTES 17:15 12/31/24. ( Pt to ER nurses station MD leyva). -- 19:13 12/31/24 EDT Tracy Appiah R.N. 19:20 12/31/24. Zofran IVP 4 mg given via Site# 1. Allergies verified and confirmed 5 rights. IV patency established. IV site checked: no pain, redness, or swelling. IV flushed thoroughly pre-medication administration. IVP given by nurse. Information reviewed with patient. Verbalizes understanding. -- 19:21 12/31/24 EDT Leny Arevalo R.N. 19:24 12/31/24. IV NS 0.9 % 1000 mL started in bag#1 1000 mL at 999 mL/hr via Site# 1. Allergies verified and confirmed 5 rights. IV patency established. IV site checked: no pain, redness, or swelling. IV flushed thoroughly pre-medication administration. Information reviewed with patient. Verbalizes understanding. -- 19:26 12/31/24 EDT Leny Arevalo R.N. 21:32 12/31/24. Rounding: Position: states comfortable. Proximity of possessions / care items: call light within easy reach. Set expectations: asked if they needed anything else at this time. -- 22:32 12/31/24 EDT Leny Arevalo R.N. 22:32 12/31/24. Rounding: Position: states comfortable. Proximity of possessions / care items: call light within easy reach. Set expectations: asked if they needed anything else at this time. -- 22:32 12/31/24 EDT Leny Arevalo R.N. 22:47 12/31/24. Acetaminophen (Tylenol) PO 650 mg given. Allergies verified and confirmed 5 rights. Information reviewed with patient. Verbalizes understanding. -- 22:47 12/31/24 EDT Leny Arevalo R.N. 22:47 12/31/24. Zofran IVP 4 mg given via Site# 1. (more content not included)... Normal [facility] ED ORDER SHEET (CPOE ONLY)on 12-31-2024 ED ORDER SHEET (CPOE ONLY) Order Sheet Order Sheet [address] [place] [address] [id number] 12/31/2024 Patient: ANA FULTON Sex: Female : 1980 Age: 44y MEASUREMENTS: Wt: 67.1 kg, Ht/Miguel: 66.0 in, BMI: 23.89 ALLERGIES: Vicodin MEDICATION/IV/DRIP/FLUID ORDERS Order Description Priority Entered Acknowledged Completed IV NS 0.9 %1000 mL at 999 18:32 12/31/2024 19:17 19:26 mL/hr (NOW x1) Heather Carrero M.D. 12/31/2024 12/31/2024 Leny Wolf R.N. RDocN. Zofran IVP4 mg (NOW x1) 18:32 12/31/2024 19:17 19:21 Heather Carrero M.D. 12/31/2024 12/31/2024 Leny oWlf R.N. R.N. Insulin Regular Human IVP7 21:20 12/31/2024 Cancelled: Verbal per Physician unit (NOW x1, HIGH ALERT Alpesh Locke D.O. 21:59 EDT Leny Arevalo R.N. MEDICATION) Insulin Regular Human IVP7 21:57 12/31/2024 21:58 21:59 unit (NOW x1, HIGH ALERT Leny Arevalo R.N. 12/31/2024 12/31/2024 MEDICATION) Leny Wolf R.N. RArun. Order Comments: 21:58 12/31/2024: discontinued verbal order per Dr. Locke pts glucose 1 of 3 Order Sheet currently at 297 Leny Arevalo R.N. 21:59 12/31/2024: Order Completed. Leny Arevalo R.N. Zofran IVP4 mg (NOW x1) 22:43 12/31/2024 22:45 22:49 Alpesh Locke D.O. 12/31/2024 12/31/2024 Leny Wolf R.N. R.N. Reason for ordering with alerts: Benefits outweigh risks --22:43 12/31/2024 Alpesh Locke D.O. Acetaminophen (Tylenol) 22:44 12/31/2024 22:45 22:47 PO650 mg (NOW x1) Alpesh Locke D.O. 12/31/2024 12/31/2024 Leny Wolf R.N. R.N. Reason for ordering with alerts: Does not appear to be a true allergy --22:44 12/31/2024 Alpesh Locke D.O. LAB ORDERS Order Description Priority Entered Acknowledged Collected Completed CBC w Diff Stat Stat 18:32 12/31/2024 19:12 12/31/2024 19:49 12/31/2024 Leny Roper Alisha Whytsell, M.D. R.N. RDocNDoc CMP Stat Stat 18:32 12/31/2024 19:12 12/31/2024 19:49 12/31/2024 Leny Roper Alisha Whytsell, M.D. R.N. RDocN. Troponin-I Stat Stat 18:32 12/31/2024 19:12 12/31/2024 19:49 12/31/2024 Leny Roper Alisha Whytsell, M.D. R.N. R.NDoc EKG - ED Stat Stat 18:32 12/31/2024 19:21 12/31/2024 19:49 12/31/2024 Leny Roper Alisha Whytsell, M.D. R.N. RDocNDoc Urinalysis Stat Stat 18:32 12/31/2024 19:12 12/31/2024 19:49 12/31/2024 2 of 3 Order Sheet Leny Roper Alisha Whytsell, M.D. R.N. RDocNDoc Ketones, Serum Stat Stat 18:32 12/31/2024 19:12 12/31/2024 19:49 12/31/2024 Leny Roper Alisha Whytsell, M.D. R.N. R.N. Blood Alcohol - ETOH Stat 18:32 12/31/2024 19:12 12/31/2024 19:49 12/31/2024 Stat Leny Roper Alisha Whytsell, M.D. R.N. RDocNDoc Lipase Stat Stat 19:13 12/31/2024 19:21 12/31/2024 19:49 12/31/2024 Leny Roper Alisha Whytsell, M.D. R.N. RDocNDoc DIAGNOSTIC STUDY ORDERS Order Description Priority Entered Acknowledged Completed STAFF ORDERS Order Description Priority Entered Acknowledged Collected Completed Pulse Oximeter 18:32 12/31/2024 19:21 12/31/2024 19:49 12/31/2024 Leny Roper Alisha Whytsell, M.D. R.N. R.N. [Electronically signed by Heather Carrero M.D. (12/31/2024 19:20 EDT)] [Electronically signed by Alpesh Locke D.O. (12/31/2024 22:44 EDT)] 3 of 3 Normal [facility] ED PHYSICIAN CLINICAL REPORT on 12-31-2024 ED PHYSICIAN CLINICAL REPORT Narrative Physician Clinical Narrative [address] [address] [phone] 12/31/2024 17:01:00 Patient: ANA FULTON Sex: Female : 1980 Age: 44y Disposition: Discharge to Home Disposition Decision Time: 23:14 12/31/2024 Departure Time: 23:29 12/31/2024 Measurements Wt: 67.1 kg, Ht/Miguel: 66.0 in, BMI: 23.89 Initial Vital Sign Measured Time BP MAP HR RR O2Sat ETCO2 Temp Pain GCS RTS 17:15 12/31/2024 103/59 74 117 16 95% 98.6 F 0 Time Seen: 20:30 12/31/2024. Arrived- By private vehicle. Historian- patient. HISTORY OF PRESENT ILLNESS (this 44-year-old female who arrives to ER complaining of fatigue for the past 2-3 days along with nausea and some intermittent abdominal cramps. She states her blood sugars have been elevated over 300 for the past 2 days and later today over 500. She states she is currently on metformin and glyburide. Denies vomiting.). Similar symptoms previously. None. REVIEW OF SYSTEMS GI: The patient has had mild, crampy abdominal pain and nausea. : No difficulty with urination or abnormal bleeding. 1 of 13 Narrative PAST HISTORY Diabetes Mellitus Gastroesophageal Reflux Disease Surgeries: Cholecystectomy hiatal hernia Tonsillectomy Adenoidectomy Medications: esomeprazole magnesium 20 mg capsule,delayed release: 20 mg once a day. glipizide 2.5 mg tablet: 1 tablet once a day. metformin 500 mg tablet: 1 tablet twice a day. Allergies: Vicodin SOCIAL HISTORY Smoker- current status unknown. Never smoker. PHYSICAL EXAM Appearance: Alert. Does not appear to be anxious. Eyes: Pupils equal, round and reactive to light. Eyes normal inspection. ENT: Ears normal. Nose normal. Pharynx normal. Neck: Normal inspection. Neck supple. CVS: Tachycardia (110). Normal heart rhythm. Respiratory: No respiratory distress. Painless inspiration. Breath sounds normal. Chest nontender. Back: Normal inspection. Skin: Normal skin color. Extremities: Extremities exhibit normal ROM. No lower extremity edema. Neuro: Oriented X 3. LABS, X-RAYS, AND EKG 2 of 13 Narrative Laboratory Tests: ALCOHOL-BLOOD MEDICAL Final AMADOR: 12/31/2024 19:09:00 EDT MsgRcvd: 12/31/2024 20:20 EDT Lab Test Result Reference Status Received Comments 122 mg/dl 12/31/2024 20:20 ALCOHOL 0 - 50 Final Above high normal EDT CBC + DIFF Final AMADOR: 12/31/2024 19:09:00 EDT MsgRcvd: 12/31/2024 19:50 EDT Lab Test Result Reference Status Received Comments 12/31/2024 19:50 CBC-COMPLETE CBC + DIFF Final EDT BLOOD COUNT 10.9 x 10/UL 12/31/2024 19:50 WBC 4.5 - 10.8 Final Above high normal EDT 12/31/2024 19:50 RBC 4.35 x 10/UL 4.10 - 5.30 Final EDT 12/31/2024 19:50 HEMOGLOBIN 12.4 g/dl 12.0 - 16.0 Final EDT 12/31/2024 19:50 HEMATOCRIT 35.2 % 34.0 - 46.0 Final EDT 12/31/2024 19:50 MCV 81 fl 80 - 99 Final EDT 12/31/2024 19:50 MCH 29 pg 27 - 33 Final EDT 12/31/2024 19:50 MCHC 35 X10 3 32 - 36 Final EDT 3 of 13 Narrative Lab Test Result Reference Status Received Comments 12/31/2024 19:50 RDW/CV 14.8 % 12.0 - 15.6 Final EDT 516 x10/UL 12/31/2024 19:50 PLATELET 150 - 450 Final Above high normal EDT 12/31/2024 19:50 AUTOMATED MPV 7.5 fl 6.6 - 10.5 Final EDT DIFFERENTIAL 12/31/2024 19:50 NEUT % 62.8 % 46.0 - 76.0 Final EDT 12/31/2024 19:50 LYMPH % 29.4 % 20.0 - 45.0 Final EDT 12/31/2024 19:50 MONOS % 6.6 % 0.0 - 10.0 Final EDT 12/31/2024 19:50 EO % 1.0 % 0.0 - 7.0 Final EDT 12/31/2024 19:50 BASO % 0.2 % 0.0 - 2.0 Final EDT 3.20 x10/UL 12/31/2024 19:50 Lymph # 0.80 - 2.80 Final Above high normal EDT 12/31/2024 19:50 Neut # 6.83 x10/UL 1.50 - 7.10 Final EDT 12/31/2024 19:50 [place] # 0.71 x10/UL 0.20 - 1.00 Final EDT 12/31/2024 19:50 EO # 0.11 x10/UL 0.00 - 0.50 Final EDT 12/31/2024 19:50 Baso # 0.02 x10/UL 0.00 - 0.10 Final EDT 4 of 13 Narrative Lab Test Result Reference Status Received Comments 12/31/2024 19:50 MANUAL DIFF N/A New Order EDT 12/31/2024 19:50 MORPHOLOGY N/A New Order EDT CMP with eGFR Final AMADOR: 12/31/2024 19:09:00 EDT MsgRcvd: 12/31/2024 20:40 EDT Lab Test Result Reference Status Received Comments COMPREHENSIVE 12/31/2024 CMP with eGFR Final METABOLIC 20:40 EDT PANEL 133 mmol/l 12/31/2024 SODIUM 136 - 145 Final Below low normal 20:40 EDT 12/31/2024 POTASSIUM 3.8 mmol/L 3.5 - 5.1 Final 20:40 EDT 97 mmol/L 12/31/2024 CHLORIDE 98 - 107 Final Below low normal 20:40 EDT 17.9 mmol/L 12/31/2024 CO2 21.0 - 32.0 Final Below low normal 20:40 EDT { CALLED TO ARNAUD JJ BY ROSA 542 mg/dl 12/31/2024 AT 9 GLUCOSE Above upper 74 - 106 Final 20:40 EDT { READ BACK BY prabha STOVER (more content not included)... Normal [facility] ED [facility] [place] [facility] 12-31-2024 ED [place] [id number] [facility] [place] [address] [phone] 12/31/2024 Patient: ANA FULTON Sex: Female : 1980 Age: 44y Item Facility Professional Category Description Code Code Quantity Fee Total Drugs Normal Saline 214668 1 $0.00 $0.00 1000cc (644869) Nurse/E/M EMERGENCY 848198 1 $0.00 $0.00 DEPARTMENT VISIT HIGH/URGENT SEVERITY (05361-29) Nurse/IV/IM/Infusions Hydration 979826 4 $0.00 $0.00 additional hour (43544) Nurse/IV/IM/Infusions IVP initial 220673 1 $0.00 $0.00 (53071) Nurse/IV/IM/Infusions IVP same med 517173 1 $0.00 $0.00 (31 min apart) (63106) Grand Total $0.00 Providers 1 of 2 [facility] Adolfo Roper D.O. Chief Complaint ( Patient presents because not feeling well. She states that her blood sugar was over 500. She is diabetic on oral medications. She also has been drinking a lot of alcohol in the last 24 hours. She has not had a fever. She is nauseated and vomiting. No chest pain or shortness of breath. She denies abdominal pain but overall said she does not feel well.). Principal Diagnosis Probable moderate hyperglycemia. Chronic abdominal pain nausea and vomiting history of gastric bypass. 2 of 2 Normal [facility] ED VISIT SUMMARYon ED VISIT SUMMARY Visit Overview Visit Overview [address] 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 glipizide 2.5 mg tablet: 1 tablet once a day. metformin 500 mg tablet: 1 tablet twice a day. 1 of 3 Visit Overview PAST MEDICAL HISTORY / PROBLEMS Diabetes Mellitus Gastroesophageal Reflux Disease PAST SURGICAL HISTORY Cholecystectomy hiatal hernia Tonsillectomy Adenoidectomy SOCIAL HISTORY Smoking status: Yes Alcohol use: Yes Drug use: No ED COURSE MEDICATIONS GIVEN IN EMERGENCY DEPARTMENT :20 12/31/24 Zofran IVP 4 mg 19:24 12/31/24 IV NS 0.9 % 1000 mL 999 mL/hr 22:47 12/31/24 Acetaminophen (Tylenol) PO 650 mg 22:47 12/31/24 Zofran IVP 4 mg IV SITE INFORMATION INTAKE OUTPUT REASSESMENT (most recent) 19:42 12/31/24. GENERAL / NEURO / PSYCH: Alert. Oriented X 4. Appears in no acute distress. HEENT: Pupils equal, round and reactive to light. Mucous membranes are pink. RESPIRATORY: Respirations not labored. CVS: Normal sinus rhythm noted. Capillary refill less than 2 seconds. Pulses within normal limits. GI / : Abdomen soft and normal bowel sounds. Abdominal tenderness in the left lower quadrant. SKIN: Skin intact. Skin is warm and dry. Normal skin turgor. VITAL SIGNS 2 of 3 Visit Overview First Vitals Last Vitals Temp 17:15 12/31/24 98.6 F Temp 23:12 12/31/24 BP 17:15 12/31/24 103/59 BP 23:12 12/31/24 HR 17:15 12/31/24 117 HR 23:12 12/31/24 92 RR 17:15 12/31/24 16 RR 23:12 12/31/24 18 O2 Sat 17:15 12/31/24 95% O2 Sat 23:12 12/31/24 98% Pain 17:15 12/31/24 0 Pain 23:12 12/31/24 0 ETCO2 17:15 12/31/24 ETCO2 23:12 12/31/24 GCS 17:15 12/31/24 GCS 23:12 12/31/24 RTS 17:15 12/31/24 RTS 23:12 12/31/24 PROCEDURES NURSING INTERVENTIONS LABS / STUDIES LABS / STUDIES ORDERED Blood Alcohol - ETOH CBC w Diff CMP EKG - ED Ketones, Serum Lipase Troponin-I Urinalysis LABS - ABNORMAL RESULTS CMP with eGFR GLUCOSE 542 mg/dl () CLINICAL IMPRESSION PROBABLE MODERATE HYPERGLYCEMIA 3 of 3 Normal [facility] ED VITALS FLOW SHEETon 12-31 ED VITALS FLOW SHEET Vitals Vital Sign Flow Sheet [place] [address] [address] [phone] 12/31/2024 Patient: ANA FULTON [facility]#: [id number] Sex: Female : 1980 Age: 44y Measurements Wt: 67.1 kg, Ht/Miguel: 66.0 in, BMI: 23.89 Measured Time BP MAP HR RR O2Sat ETCO2 Temp Pain GCS RTS 23:12 12/31/2024 92 18 98% 0 17:15 12/31/2024 103/59 74 117 16 95% 98.6 F 0 1 of 1 Normal [facility] KETONE, BLOOD, QUALon 2024 Ketones Ql (U) Negative Normal SUKHDEV - NEGATIVE [facility] Comment on above: Result Comment: SPEC IMEN SERUM Performed By: #### 2 [id number] #### [facility],[address] [place] [address] LIPASEon 12-31-2024 Lipase [Catalytic activity/Vol] 41.0 U/L Normal 15.0 - 78.0 [facility] Comment on above: Result Comment: *PLE ASE NOTE THAT RANGES FOR LIPASE HAVE CHANGED OF 08/04/23 DUE TO AN ASSAY UPDATE BY THE WEATHER STRIPPER.THE NEW ASSAY RANGE IS 6-250 U/L, WITH A REFERENCE RANGE OF 16-77 U/L. Performed By: #### 2 [id number] #### [facility],[address] [place] [address] TROPONINon 12-31-2024 HS TROPONIN 4.0 pg/mL Normal 0.0 - 51.4 [facility] Comment on above: Performed By: #### 2 [id number] #### [facility],[address] [place], [place] [id number] URINALYSISon 12-31-2024 Bilirubin Ql (U) Negative Normal NORMAL: NEGATIVE [facility] Comment on above: Performed By: #### 2 [id number] #### [facility],[address] [place], [place] [id number] Clarity (U) clear Normal NORMAL: CLEAR [facility] Comment on above: Performed By: #### 2 [id number] #### [facility],[address] [place] [phone] Color (U) p.yel Normal NORMAL: YELLOW [facility] Comment on above: Performed By: #### 2 19255 #### [facility],[address] [place] [phone] Glucose Ql (U) 1000 Abnormal NORMAL: NORMAL [facility] Comment on above: Performed By: #### 2 20281 #### [facility],[address] [place] [phone] Hemoglobin Ql (U) Negative Normal NORMAL: NEGATIVE [facility] Comment on above: Performed By: #### 2 [id number] #### [facility],[address] [place] [address] 61455 Ketone 5 Abnormal NORMAL: NEGATIVE [facility] Comment on above: Performed By: #### 2 07919 #### [facility],[address] [place] [address] 51667 Leukocytes Negative Normal NORMAL: NEGATIVE [facility] Comment on above: Performed By: #### 2 30698 #### [facility],[address] [place] [address] 82363 Nitrite Ql (U) Negative Normal NORMAL: NEGATIVE [facility] Comment on above: Performed By: #### 2 47887 #### [facility],[address] [place] [address] 73378 pH (U) 5 [pH] Normal NORMAL: 5.0-8.0 [facility] Comment on above: Performed By: #### 2 82424 #### [facility],[address] [place] [address] 53358 Protein Ql (U) Negative Normal NORMAL: NEGATIVE [facility] Comment on above: Performed By: #### 2 59542 #### [facility],[address] [place] [address] 82299 Sp Chauvin 1.015 Normal NORMAL: 1.010-1.03 0 [facility] Comment on above: Performed By: #### 2 17219 #### [facility],[address] [place] [address] 48601 Specimen Type R Normal [facility] Comment on above: Performed By: #### 2 78400 #### [facility],[address] [place] [address] 05605 Urinalysis dipstick W Reflex Microscopic panel (U) NOT INDICATED Normal [facility] Comment on above: Performed By: #### 2 85768 #### [facility],[address] [place], [place] [phone] Urobilinog NORM Normal NORMAL: NORMAL [facility] Comment on above: Performed By: #### 2 42658 #### [facility],[address] [place] [address] 36051 C-REACTIVE PROTEINon CRP 0.47 mg/dl Normal 0.00 - 0.90 [facility] Comment on above: Performed By: #### 2 67500 ####[facility],[address] [place] [address] 88821 CBC + DIFFon 10-06-2024 Baso # 0.03 x10EE3/UL Normal 0.00 - 0.10 [facility] Comment on above: Performed By: #### 2 83026 #### [facility],[address] [place] [address] 72106 Basophils/100 WBC (Bld) 0.4 % Normal 0.0 - 2.0 [facility] Comment on above: Performed By: #### 2 68152 #### [facility],[address] [place] [address] 94184 CBC + DIFF Normal [facility] Comment on above: Result Comment: CBC- COMPLETE BLOOD COUNT Performed By: #### 2 55827 #### [facility],[address] [place] [address] 77681 EO # 0.11 x10EE3/UL Normal 0.00 - 0.50 [facility] Comment on above: Performed By: #### 2 31946 #### [place] [phone] Eosinophils/100 WBC (Bld) 1.3 % Normal 0.0 - 7.0 [facility] Comment on above: Performed By: #### 2 61483 #### [facility],[address] [place] [address] Erythrocyte distribution width (RBC) [Ratio] 14.6 % Normal 12.0 - 15.6 [facility] Comment on above: Performed By: #### 2 79724 #### [place] [address] Hematocrit (Bld) [Volume fraction] 40.1 % Normal 34.0 - 46.0 [facility] Comment on above: Performed By: #### 2 22790 #### [place] [address] Hemoglobin (Bld) [Mass/Vol] 13.7 g/dL Normal 12.0 - 16.0 [facility] Comment on above: Performed By: #### 2 41279 #### [place] [address] Lymph # 2.61 x10EE3/UL Normal 0.80 - 2.80 [facility] Comment on above: Performed By: #### 2 30231 #### [facility],[address] [place], [place] [phone] Lymphocytes/100 WBC (Bld) 28.8 % Normal 20.0 - 45.0 [facility] Comment on above: Performed By: #### 2 85911 #### [place] [address] MANUAL DIFF N/A Normal [facility] Comment on above: Performed By: #### 2 37849 #### [place] [address] MCH (RBC) [Entitic mass] 29 pg Normal 27 - 33 [facility] Comment on above: Performed By: #### 2 31911 #### [facility],[address] [place] [address] MCHC 34 X10 3 Normal 32 - 36 [facility] Comment on above: Performed By: #### 2 17743 #### [facility],[address] [place], [place] [phone] MCV (RBC) [Entitic vol] 85 fL Normal 80 - 99 [facility] Comment on above: Performed By: #### 2 39667 #### [facility],[address] [place] [address] [place] # 0.66 x10EE3/UL Normal 0.20 - 1.00 [facility] Comment on above: Performed By: #### 2 35389 #### [facility],[address] [place] [address] MONOS % 7.3 % Normal 0.0 - 10.0 [facility] Comment on above: Performed By: #### 2 70927 #### [facility],[address] [place] [address] 38501 Morphology Mart (Bld) [Interp] N/A Normal [facility] Comment on above: Performed By: #### 2 14664 #### [facility],[address] [place] [address] 85745 Neut # 5.64 x10EE3/UL Normal 1.50 - 7.10 [facility] Comment on above: Performed By: #### 2 07796 #### [place] [id number] Neutrophils/100 WBC (Bld) 62.3 % Normal 46.0 - 76.0 [facility] Comment on above: Performed By: #### 2 63471 #### [facility],[address] [place], [place] [phone] PLATELET 496 x10EE3/UL High 150 - 450 [facility] Comment on above: Performed By: #### 2 56805 #### [facility],[address] [place] [address] Platelet mean volume (Bld) [Entitic vol] 7.4 fL Normal 6.6 - 10.5 [facility] Comment on above: Result Comment: AUTO MATED DIFFERENTIAL Performed By: #### 2 00542 #### [facility],[address] [place] [address] RBC 4.72 x 10EE6/UL Normal 4.10 - 5.30 [facility] Comment on above: Performed By: #### 2 12208 #### [facility],[address] [place] [address] WBC 9.1 x 10EE3/UL Normal 4.5 - 10.8 [facility] Comment on above: Performed By: #### 2 96920 #### [facility],[address] [place] [address] CMP with eGFRon 10-06-2024 AGE 44 years Normal [facility] Comment on above: Performed By: #### 2 52253 #### [facility],[address] [place] [address] Albumin [Mass/Vol] 3.4 g/dL Normal 3.4 - 5.0 [facility] Comment on above: Performed By: #### 2 60988 #### [facility],[address] [place] [address] Albumin/Globulin [Mass ratio] 0.9 {ratio} Normal 0.9 - 1.6 [facility] Comment on above: Performed By: #### 2 21888 #### [facility],[address] [place] [address] ALK PHOS 120 U/L High 46 - 116 [facility] Comment on above: Performed By: #### 2 02492 #### [facility],[address] [place], [place] [id number] ALT [Catalytic activity/Vol] 17 U/L Normal 16 - 63 [facility] Comment on above: Performed By: #### 2 99738 #### [facility],[address] [place] [address] Anion gap [Moles/Vol] 17 mmol/L Normal 10 - 20 [facility] Comment on above: Performed By: #### 2 39048 #### [facility],[address] [place] [address] AST [Catalytic activity/Vol] 12 U/L Low 13 - 39 [facility] Comment on above: Performed By: #### 2 63719 #### [facility],[address] [place] [address] B/C RATIO 23 ratio Normal 0 - 30 [facility] Comment on above: Performed By: #### 2 53294 #### [facility],[address] [place] [address] Bilirubin [Mass/Vol] 0.4 mg/dL Normal 0.2 - 1.0 [facility] Comment on above: Performed By: #### 2 12462 #### [facility],[address] [place] [address] Calcium [Mass/Vol] 9.0 mg/dL Normal 8.5 - 10.1 [facility] Comment on above: Performed By: #### 2 78125 #### [facility],[address] [place], [place] [phone] Chloride [Moles/Vol] 97 mmol/L Low 98 - 107 [facility] Comment on above: Performed By: #### 2 83989 #### [facility],[address] [place] [address] CMP with eGFR Normal [facility] Comment on above: Result Comment: COMP REHENSIVE METABOLIC PANEL Performed By: #### 2 26991 #### [facility],[address] [place], [place] [phone] CO2 [Moles/Vol] 22.7 mmol/L Normal 21.0 - 32.0 [facility] Comment on above: Performed By: #### 2 56568 #### [facility],[address] [place] [address] 90779 Creatinine [Mass/Vol] 0.57 mg/dL Normal 0.55 - 1.02 [facility] Comment on above: Performed By: #### 2 99946 #### [facility],[address] [place] [address] 77165 GFR/1.73 sq M.predicted among non-blacks MDRD (S/P/Bld) [Vol rate/Area] mL/min/{1.73_m2} Normal 60 - 999 [facility] Comment on above: Performed By: #### 2 47517 #### [facility],[address] [place] [address] Result Comment: ACCO RDING TO THE NATIONAL KIDNEY DISEASE EDUCATION PROGRAM(NKDE), A NORMAL eGFR IS A VALUE GREATER THAN OR EQUAL TO 60 ML/MIN/1.73 SQ METERS. CHRONIC KIDNEY DISEASE: <60mL/MIN/1.73 SQ METERS KIDNEY FAILURE: <15mL/MIN/1.73 SQ METERS THIS TEST SHOULD ONLY BE USED FOR PATIENTS 18 YEARS OF AGE AND OLDER. Globulin (S) [Mass/Vol] 3.6 g/dL Normal 1.5 - 3.8 [facility] Comment on above: Performed By: #### 2 26596 #### [facility],[address] [place] [address] 64321 Glucose [Mass/Vol] 336 mg/dL High 74 - 106 [facility] Comment on above: Performed By: #### 2 30484 #### [facility],[address] [place] [address] 26963 Potassium [Moles/Vol] 4.5 mmol/L Normal 3.5 - 5.1 [facility] Comment on above: Performed By: #### 2 79067 #### [facility],[address] [place] [address] 11372 Protein [Mass/Vol] 7.0 g/dL Normal 6.4 - 8.2 [facility] Comment on above: Performed By: #### 2 99711 #### [facility],[address] [place] [address] 85896 Sodium [Moles/Vol] 132 mmol/L Low 136 - 145 [facility] Comment on above: Performed By: #### 2 93812 #### [facility],[address] [place] [address] 77109 Urea nitrogen [Mass/Vol] 13 mg/dL Normal 7 - 18 [facility] Comment on above: Performed By: #### 2 91497 #### [facility],[address] [place] [address] 22770 ED MED ADMINISTRATION DETAIL on 10-06-2024 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 Allergies verified and confirmed 5 rights. Via 14:40 10/06/2024 (NOW x1) IV pump. IV patency established. IV site checked: no pain, redness, Aileen Cutler R.N. or swelling. IV flushed thoroughly pre-medication administration. Stopped Information reviewed with patient including reason for taking this 15:45 10/06/2024 medication. - 14:40 Lynnette Rivera R.N. Scanned 15:45 03 Medication Discontinued: bag #1 infused. Total amount infused: 1000 mL. IV patency established. IV site checked: no pain, redness, or swelling. IV flushed thoroughly post-medication administration. - 17:06 Caty Powers R.N. KetorOLAC 14:44 03 KetorOLAC (Toradol) IVP 15 mg given via Site# 1. Given (Toradol) IVP 30 mg Allergies verified and confirmed 5 rights. IV patency established. IV 14:44 10/06/2024 (NOW x1) site checked: no pain, redness, or swelling. IV flushed thoroughly Aileen Cutler R.N. pre-medication administration. IVP given by nurse. Information Scanned reviewed with patient including reason for taking this medication. Medication Wastage: 15 mg wasted. - 14:44 Aileen Cutler R.N. GlipiZIDE PO 5 mg 16:39 03 GlipiZIDE PO 5 mg given. Allergies verified and Given (NOW x1) confirmed 5 rights. Information reviewed with patient. Verbalizes 16:39 10/06/2024 understanding. - 16:39 Lynnette Carr R.N. 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 Historian: (patient). Primary physician (Sarah Briones). Primary care physician not notified of patient's arrival. Triage time: 13:36 10/06/2024. Acuity: LEVEL 3. Chief Complaint: BLOOD SUGAR CHECK, HEADACHE, COUGH and GENITAL ITCHING/IRRITATION (Facial swelling. Possible yeast infection). ABNORMAL GLUCOSE (States glucose was 400s-500s at home). ( Patient was placed on prednisone and antibiotic, stopped approximately one week ago. Restarting Glipizide today (been off for approx. 1 month)). The patient has had a cough and constipation. The patient has had left-sided, central and right-sided chest pain (Patient states that the pain radiates across her chest with burning to the left jaw. Intermittent pain.). No fever. SEPSIS SCREEN: NEGATIVE. SIRS criteria negative. -- 13:48 10/06/24 AMAIRANI Powers R.N. 13:42 10/06/24. BP: 123/81 MAP: 95. HR: 89. RR: 15. O2 saturation: 98% on room air. Temperature: 98.6 F. Pain level now 09/16. Describes the pain as aching. (headache). -- 13:47 10/06/24 AMAIRANI Powers R.N. Measurements: 13:41 10/06/24 Wt: 66.7 kg, Ht/Miguel: 66.0 in, BMI: 23.73 -- 13:41 10/06/24 AMAIRANI Powers R.N. Medications: 1 of 4 Nurse Narrative metformin 1,000 mg tablet -- 13:39 10/06/24 AMAIRANI Powers R.N. esomeprazole magnesium 20 mg capsule,delayed release: 20 mg once a day . -- 13:39 10/06/24 AMAIRANI Powers R.N. Allergies: Vicodin -- 13:38 10/06/24 AMAIRANI Powers R.N. Problems: Diabetes Mellitus -- 13:38 10/06/24 AMAIRANI Powers R.N. ADDITIONAL SURGERIES: hiatal hernia -- 13:39 10/06/24 AMAIRANI Powers R.N. Cholecystectomy -- 13:39 10/06/24 AMAIRANI Powers R.N. Tonsillectomy Adenoidectomy -- 13:39 10/06/24 AMAIRANI Powers R.N. History 13:36 10/06/24. PAST MEDICAL HX: Denies current . SOCIAL HX: Light tobacco smoker (cigarette)- less than 1/2 a pack per day. No alcohol use or drug use. The patient has not traveled outside the [place] Infectious disease exposure: No infectious disease exposure. ABUSE ASSESSMENT: The patient answered yes to the question(s) Do you feel safe in your home? and no to the question(s) Are you afraid to go home?. SELF HARM ASSESSMENT: Self harm assessment was performed. The patient answered no to the question(s) Have you recently felt down, depressed, or hopeless? and Do you have thoughts of harming or killing yourself?. FALL RISK ASSESSMENT: Fall risk assessment completed. No risk factors identified. -- 13:48 10/06/24 AMAIRANI Powers R.N. Interventions 2 of 4 Nurse Narrative 13:36 10/06/24. Advanced care plan discussed with patient. Patient does not have advanced directive. -- 13:48 10/06/24 AMAIRANI Powers R.N. PHYSICAL ASSESSMENT 16:22 10/06/24. ( Pt states her blood sugar was high yesterday, she called her PCP and was told if it is still high she should come in. Pt has multiple complaints. Chest pressure which started a few weeks ago when she had the flu, she denies it now. Pt states she has a LAZCANO which she attributes to her high blood sugar. Constipation as well. Pt states she hasn't been monitoring her blood sugar like she should.). GENERAL / NEURO / PSYCH: Alert. Oriented X 4. Appears in no acute distress. RESPIRATORY: Respirations not labored. Chest nontender. Breath sounds within normal limits. CVS: Normal sinus rhythm noted. Capillary refill less than 2 seconds. Pulses within normal limits. -- 16:47 10/06/24 AMAIRANI Cutler R.N. NURSING PROGRESS NOTES 13:49 10/06/24. Bedside glucose 342; ordered. Performed by nurse via finger. Result shown to the ED physician. -- 13:51 10/06/24 AMAIRANI Powers R.N. 14:20 10/06/24. Site #1 started via IV in the right hand with a 20g angiocath with aseptic technique and good blood return; 1 attempt. Blood drawn: rainbow set and etienne tube(s). Saline lock flushed with 5 mL saline. -- 14:25 10/06/24 AMAIRANI Palomino R.N. 14:40 10/06/24. IV NS 0.9 % 1000 mL started in bag#1 1000 mL at 999 mL/hr via Site# 1. Allergies verified and confirmed 5 rights. Via IV pump. IV patency established. IV site checked: no pain, redness, or swelling. IV flushed thoroughly pre-medication administration. Information reviewed with patient including reason for taking this medication. -- 14:40 10/06/24 AMAIRANI Cutler R.N. 14:44 10/06/24. KetorOLAC (Toradol) IVP 15 mg given via Site# 1. Allergies verified and confirmed 5 rights. IV patency established. IV site checked: no pain, redness, or swelling. IV flushed tho (more content not included)... Normal [facility] ED ORDER SHEET (CPOE ONLY)on 10-06-2024 ED ORDER SHEET (CPOE ONLY) Order Sheet Order Sheet [address] [address] [id number] 10/06/2024 Patient: ANA FULTON Sex: Female : 1980 Age: 44y MEASUREMENTS: Wt: 66.7 kg, Ht/Miguel: 66.0 in, BMI: 23.73 ALLERGIES: Vicodin MEDICATION/IV/DRIP/FLUID ORDERS Order Description Priority Entered Acknowledged Completed IV NS 0.9 %1000 mL at 999 14:10 10/06/2024 14:20 14:40 mL/hr (NOW x1) Wilfrido Bruce M.D. 10/06/2024 10/06/2024 Aileen Rivera R.N. RDocN. KetorOLAC (Toradol) IVP30 mg 14:10 10/06/2024 14:20 14:44 (NOW x1) Wilfrido Bruce M.D. 10/06/2024 10/06/2024 Aileen Rivera R.N. R.N. KetorOLAC (Toradol) IM15 mg 14:10 10/06/2024 Cancelled: Duplicate Order (NOW x1) Wilfrido Bruce M.D. 14:20 AMAIRANI Cutler R.N. GlipiZIDE PO5 mg (NOW x1) 16:29 10/06/2024 16:38 16:39 Wilfrido Bruce M.D. 10/06/2024 10/06/2024 Erlinda Carr R.N. R.N. 1 of 3 Order Sheet LAB ORDERS Order Description Priority Entered Acknowledged Collected Completed CBC w Diff Stat Stat 14:10 10/06/2024 14:17 10/06/2024 Adolfo Stoll R.N. CMP Stat Stat 14:10 10/06/2024 14:17 10/06/2024 Adolfo Stoll R.N. Lactate, Serum Stat Stat 14:10 10/06/2024 14:17 10/06/2024 Adolfo Stoll R.N. Troponin-I Stat Stat 14:10 10/06/2024 14:17 10/06/2024 Adolfo Stoll R.N. Urinalysis Stat Stat 14:10 10/06/2024 14:17 10/06/2024 Adolfo Stoll R.N. CRP Stat Stat 14:10 10/06/2024 14:17 10/06/2024 Adolfo Stoll R.N. Ketones, Serum Stat Stat 14:10 10/06/2024 14:17 10/06/2024 Adolfo Stoll R.N. HbA1C Stat Stat 16:36 10/06/2024 16:38 10/06/2024 Adolfo Stoll R.N. DIAGNOSTIC STUDY ORDERS Order Description Priority Entered Acknowledged Completed STAFF ORDERS 2 of 3 Order Sheet Order Description Priority Entered Acknowledged Collected Completed [Electronically signed by Wilfrido Bruce M.D. (10/06/2024 17:16 EST)] 3 of 3 Normal [facility] ED PHYSICIAN CLINICAL REPORT on 10-06-2024 ED PHYSICIAN CLINICAL REPORT Narrative Physician Clinical Narrative [address] [address] [id number] 10/06/2024 Patient: ANA FULTON Sex: Female : 1980 Age: 44y Disposition: Discharge to Home Disposition Decision Time: 16:37 10/06/2024 Departure Time: 17:05 10/06/2024 Measurements Wt: 66.7 kg, Ht/Miguel: 66.0 in, BMI: 23.73 Initial Vital Sign Measured Time BP MAP HR RR O2Sat ETCO2 Temp Pain GCS RTS 13:42 10/06/2024 123/81 95 89 15 98% RA 98.6 F 2 Time Seen: 13:51 10/06/2024. Arrived- By private vehicle. Historian- patient. HISTORY OF PRESENT ILLNESS Chief Complaint: HEADACHE. Is still present but is improving. This started several days. It is described as similar to previous headaches. No neck pain. Not located in the facial region. No preceding symptoms, blurred vision, photophobia, associated nausea or numbness. No weakness. (over the past month or so had flu-like symptoms and then diagnosed with bronchitis. Take antibiotics for that which she has completed. The symptoms are noticeably improved. She has not been checking her sugars for quite awhile. States that she has been quite noncompliant with her meds and diet for diabetes for quite some time. Recently she started taking it seriously . Started taking glyburide today which she had not been taking for weeks. She had sugars that were over 500 a couple of days ago and was seen in the office for that. Was still in the 400s today so came mainly because of her elevated sugars. Has had more of a headache for the last several days which she attributed to attributes to most likely her elevated glucose.). 1 of 11 Narrative Similar symptoms previously. REVIEW OF SYSTEMS vag d/c w itching; prev yeast infections. RESPIRATORY: No difficulty breathing or cough. CONSTITUTIONAL: No fever or muscle aches. CVS: No chest pain. PAST HISTORY See nurses notes. Diabetes mellitus. Diabetes Mellitus Surgeries: Cholecystectomy hiatal hernia Tonsillectomy Adenoidectomy Medications: esomeprazole magnesium 20 mg capsule,delayed release: 20 mg once a day . metformin 1,000 mg tablet Allergies: Vicodin SOCIAL HISTORY History of tobacco use. ADDITIONAL NOTES The nursing notes have been reviewed. PHYSICAL EXAM Vital Signs: Have been reviewed. Appearance: Alert. No acute distress. Eyes: Pupils equal, round and reactive to light. Eyes normal inspection. (Minimally dry mucosa). 2 of 11 Narrative ENT: Ears normal. Nose normal. Pharynx normal. Neck: Normal inspection. Neck supple. CVS: Normal heart rate and rhythm. Heart sounds normal. Pulses normal. Respiratory: No respiratory distress. Painless inspiration. Breath sounds normal. Abdomen: Soft and nontender. No organomegaly. Back: Normal inspection. Skin: Skin dry. Normal skin color. No rash. Normal skin turgor. Slightly cool skin (2 fingers). Neuro: Oriented X 3. Alert. Mood/affect normal. Speech normal. Cranial nerves normal (as tested). No motor deficit. No sensory deficit. Reflexes normal. LABS, X-RAYS, AND EKG Laboratory Tests: C-REACTIVE PROTEIN Final AMADOR: 10/06/2024 14:20:00 EST MsgRcvd: 10/06/2024 15:04 EST Lab Test Result Reference Status Received Comments 10/06/2024 15:04 CRP 0.47 mg/dl 0.00 - 0.90 Final EST CBC + DIFF Final AMADOR: 10/06/2024 14:20:00 EST MsgRcvd: 10/06/2024 14:54 EST Lab Test Result Reference Status Received Comments 10/06/2024 14:54 CBC-COMPLETE CBC + DIFF Final EST BLOOD COUNT 10/06/2024 14:54 WBC 9.1 x 10/UL 4.5 - 10.8 Final EST 10/06/2024 14:54 RBC 4.72 x 10/UL 4.10 - 5.30 Final EST 10/06/2024 14:54 HEMOGLOBIN 13.7 g/dl 12.0 - 16.0 Final EST 3 of 11 Narrative Lab Test Result Reference Status Received Comments 10/06/2024 14:54 HEMATOCRIT 40.1 % 34.0 - 46.0 Final EST 10/06/2024 14:54 MCV 85 fl 80 - 99 Final EST 10/06/2024 14:54 MCH 29 pg 27 - 33 Final EST 10/06/2024 14:54 MCHC 34 X10 3 32 - 36 Final EST 10/06/2024 14:54 RDW/CV 14.6 % 12.0 - 15.6 Final EST 496 x10/UL 10/06/2024 14:54 PLATELET 150 - 450 Final Above high normal EST 10/06/2024 14:54 AUTOMATED MPV 7.4 fl 6.6 - 10.5 Final EST DIFFERENTIAL 10/06/2024 14:54 NEUT % 62.3 % 46.0 - 76.0 Final EST 10/06/2024 14:54 LYMPH % 28.8 % 20.0 - 45.0 Final EST 10/06/2024 14:54 MONOS % 7.3 % 0.0 - 10.0 Final EST 10/06/2024 14:54 EO % 1.3 % 0.0 - 7.0 Final EST 10/06/2024 14:54 BASO % 0.4 % 0.0 - 2.0 Final EST 10/06/2024 14:54 Lymph # 2.61 x10/UL 0.80 - 2.80 Final EST 4 of 11 Narrative Lab Test Result Reference Status Received Comments 10/06/2024 14:54 Neut # 5.64 x10/UL 1.50 - 7.10 Final EST 10/06/2024 14:54 [place] # 0.66 x10/UL 0.20 - 1.00 Final EST 10/06/2024 14:54 EO # 0.11 x10/UL 0. (more content not included)... Normal [facility] ED [facility] [place] [facility] 10-06-[address] [place] [place] [address] [id number] 10/06/2024 Patient: ANA FULTON Sex: Female : 1980 Age: 44y Item Facility Professional Category Description Code Code Quantity Fee Total Drugs Normal Saline 658428 1 $0.00 $0.00 1000cc (362922) Nurse/E/M EMERGENCY 483817 1 $0.00 $0.00 DEPARTMENT VISIT HIGH/URGENT SEVERITY (37067-57) Nurse/IV/IM/Infusions Hydration 939883 1 $0.00 $0.00 additional hour (77978) Nurse/IV/IM/Infusions IVP initial 815957 1 $0.00 $0.00 (60056) Grand Total $0.00 Providers Wilfrido Bruce M.D. 1 of 2 [facility] Chief Complaint HEADACHE. Principal Diagnosis Mild dehydration (secondary to hyperglycemia). Chronic, poorly controlled type 2 diabetes with hyperglycemia. vaginal yeast infection. ICD-10 Codes E86.0: Dehydration 2 of 2 Normal [facility] ED VISIT SUMMARYon ED VISIT SUMMARY Visit Overview Visit Overview [facility] [address] [place] [address] [id number] 10/06/2024 Patient: ANA FULTON Sex: Female : 1980 Age: 44y 10/06/2024 05:17 PM EST ED Arrival:13:32 10/06/2024 EST Status:not Recent Travel:no Language:eng Adv Directive:No Isolation Status: Ethnicity:N Fall Risk:no risk Infectious Disease Exposure:no Measurements:5'6 / 167.6 Self-Harm Status:risk Sepsis Screen:negative cm 147.0 lb / 66.7 kg 1 4 Visit Overview Chief Complaint: BLOOD SUGAR CHECK \@9 ZZZ, COUGH, GENITAL ITCHING/IRRITATION, GLUCOSE, HEADACHE, (Sarah Briones), (Facial swelling. Possible yeast infection), (Patient states that the pain radiates across her chest with burning to the left jaw. Intermittent pain.), (Patient was placed on prednisone and antibiotic, stopped approximately one week ago. Restarting Glipizide today (been off for approx. 1 month)), and (States glucose was 400s-500s at home) ALLERGIES Vicodin HOME MEDICATIONS esomeprazole magnesium 20 mg capsule,delayed release: 20 mg once a day . metformin 1,000 mg tablet PAST MEDICAL HISTORY / PROBLEMS Diabetes mellitus See nurses notes PAST SURGICAL HISTORY Cholecystectomy hiatal hernia Tonsillectomy Adenoidectomy SOCIAL HISTORY 4 Visit Overview Smoking status: Yes Alcohol use: No Drug use: No ED COURSE MEDICATIONS GIVEN IN EMERGENCY DEPARTMENT 14:40 10/06/24 IV NS 0.9 % 1000 mL 999 mL/hr 14:44 10/06/24 KetorOLAC (Toradol) IVP 15 mg 16:39 10/06/24 GlipiZIDE PO 5 mg IV SITE INFORMATION INTAKE OUTPUT REASSESMENT (most recent) 16:22 10/06/24. ( Pt states her blood sugar was high yesterday, she called her PCP and was told if it is still high she should come in. Pt has multiple complaints. Chest pressure which started a few weeks ago when she had the flu, she denies it now. Pt states she has a LAZCANO which she attributes to her high blood sugar. Constipation as well. Pt states she hasn't been monitoring her blood sugar like she should.). GENERAL / NEURO / PSYCH: Alert. Oriented X 4. Appears in no acute distress. RESPIRATORY: Respirations not labored. Chest nontender. Breath sounds within normal limits. CVS: Normal sinus rhythm noted. Capillary refill less than 2 seconds. Pulses within normal limits. VITAL SIGNS First Vitals Last Vitals Temp 13:42 10/06/24 98.6 F Temp 16:55 10/06/24 BP 13:42 10/06/24 123/81 BP 16:55 10/06/24 HR 13:42 10/06/24 89 HR 16:55 10/06/24 67 RR 13:42 10/06/24 15 RR 16:55 10/06/24 O2 Sat 13:42 10/06/24 98% RA O2 Sat 16:55 10/06/24 97% Pain 13:42 10/06/24 2 Pain 16:55 10/06/24 ETCO2 13:42 10/06/24 ETCO2 16:55 10/06/24 GCS 13:42 10/06/24 GCS 16:55 10/06/24 RTS 13:42 10/06/24 RTS 16:55 10/06/24 3 of 4 Visit Overview PROCEDURES NURSING INTERVENTIONS LABS / STUDIES LABS / STUDIES ORDERED CBC w Diff CMP CRP HbA1C Ketones, Serum Lactate, Serum Troponin-I Urinalysis CLINICAL IMPRESSION CHRONIC, POORLY CONTROLLED TYPE 2 DIABETES WITH HYPERGLYCEMIA MILD DEHYDRATION (SECONDARY TO HYPERGLYCEMIA) 4 of 4 Normal [facility] ED VITALS FLOW SHEETon 10-06 ED VITALS FLOW SHEET Vitals Vital Sign Flow Sheet [address] [address] [id number] 10/06/2024 Patient: ANA FULTON Sex: Female : 1980 Age: 44y Measurements Wt: 66.7 kg, Ht/Miguel: 66.0 in, BMI: 23.73 Measured Time BP MAP HR RR O2Sat ETCO2 Temp Pain GCS RTS 16:55 10/06/2024 67 97% 16:51 10/06/2024 16 0 16:50 10/06/2024 65 98% 16:46 10/06/2024 104/77 82 70 16:35 10/06/2024 70 98% 16:25 10/06/2024 78 97% 16:20 10/06/2024 69 97% 16:16 10/06/2024 94/71 74 74 16:15 10/06/2024 72 96% 16:10 10/06/2024 70 96% 15:30 10/06/2024 69 97% 15:25 10/06/2024 69 97% 15:20 10/06/2024 70 97% 15:16 10/06/2024 104/73 82 67 15:15 10/06/2024 69 97% 1 of 2 Vitals Measured Time BP MAP HR RR O2Sat ETCO2 Temp Pain GCS RTS 15:10 10/06/2024 70 95% 15:05 10/06/2024 69 96% 15:01 10/06/2024 105/79 86 70 15:00 10/06/2024 70 96% 14:55 10/06/2024 75 96% 14:50 10/06/2024 78 96% 14:46 10/06/2024 108/80 85 74 14:45 10/06/2024 74 98% 14:40 10/06/2024 79 98% 14:35 10/06/2024 81 96% 14:31 10/06/2024 100/71 76 77 14:30 10/06/2024 79 97% 14:25 10/06/2024 82 97% 14:20 10/06/2024 79 97% 14:15 10/06/2024 78 97% 14:10 10/06/2024 76 97% 14:05 10/06/2024 81 97% 14:01 10/06/2024 105/78 85 84 14:00 10/06/2024 88 98% 13:55 10/06/2024 87 97% 13:50 10/06/2024 85 98% 13:46 10/06/2024 123/81 89 87 13:45 10/06/2024 89 98% 13:42 10/06/2024 123/81 95 89 15 98% RA 98.6 F 2 2 of 2 Normal [facility] HEMOGLOBIN A1C (POM)on 10-06 HbA1c (Bld) [Mass fraction] % High 0.0 - 6.5 [facility] Comment on above: Result Comment: BLDo HEMOGLOBIN A1C REFERENCE RANGESBLDo Suggested Diagnosis HbA1c(%) HbA1C (mmol/mol Diabetic >/=6.5 >/=48 Prediabetes 5.7 - 6.4 39 - 47 Normal <5.7 <39 Performed By: #### 2 [id number] #### [facility],[address] [place] [address]402 KETONE, BLOOD, QUALon 2024 Ketones Ql (U) Negative Normal SUKHDEV - NEGATIVE [facility] Comment on above: Result Comment: SPEC IMEN SERUM Performed By: #### 2 84235 #### [facility],[address] [place] [address] 84498 LACTATEon 10-06-2024 Lactate [Moles/Vol] 1.0 mmol/L Normal 0.4 - 2.0 [facility] Comment on above: Performed By: #### 2 15812 ####[facility],[address] [place] [address] 35593 TROPONINon 10-06-2024 HS TROPONIN <4.0 Normal 0.0 - 51.4 [facility] Comment on above: Performed By: #### 2 09163 #### [facility],[address] [place] [address] 97066 URINALYSISon 10-06-2024 Bilirubin Ql (U) Negative Normal NORMAL: NEGATIVE [facility] Comment on above: Performed By: #### 2 20230 #### [facility],[address] [place] [address] 35982 Clarity (U) clear Normal NORMAL: CLEAR [facility] Comment on above: Performed By: #### 2 22288 #### [facility],[address] [place] [address] 61152 Color (U) yellow Normal NORMAL: YELLOW [facility] Comment on above: Performed By: #### 2 45818 #### [facility],[address] [place] [address] 92430 Glucose Ql (U) 1000 Abnormal NORMAL: NORMAL [facility] Comment on above: Performed By: #### 2 33269 #### [facility],[address] [place] [address] 80094 Hemoglobin Ql (U) Negative Normal NORMAL: NEGATIVE [facility] Comment on above: Performed By: #### 2 81524 #### [facility],[address] [place] [address] 60096 Ketone 50 Abnormal NORMAL: NEGATIVE [facility] Comment on above: Performed By: #### 2 06621 #### [facility],[address] [place] [address] 34078 Leukocytes Negative Normal NORMAL: NEGATIVE [facility] Comment on above: Performed By: #### 2 88269 #### [facility],[address] [place] [address] 08739 Nitrite Ql (U) Negative Normal NORMAL: NEGATIVE [facility] Comment on above: Performed By: #### 2 44526 #### [facility],[address] [place] [address] 01071 pH (U) 5 [pH] Normal NORMAL: 5.0-8.0 [facility] Comment on above: Performed By: #### 2 89241 #### [facility],[address] [place] [address] 76889 Protein Ql (U) Negative Normal NORMAL: NEGATIVE [facility] Comment on above: Performed By: #### 2 81913 #### [facility],[address] [place] [address] 25943 Sp Chauvin 1.020 Normal NORMAL: 1.010-1.03 0 [facility] Comment on above: Performed By: #### 2 20698 #### [facility],[address] [place] [address] 51268 Specimen Type R Normal [facility] Comment on above: Performed By: #### 2 03062 #### [facility],[address] [place] [address] 44521 Urinalysis dipstick W Reflex Microscopic panel (U) NOT INDICATED Normal [facility] Comment on above: Performed By: #### 2 52678 #### [facility],[address] [place] [address] 33364 Urobilinog NORM Normal NORMAL: NORMAL [facility] Comment on above: Performed By: #### 2 92694 #### [facility],[address] [place], [place] [address] ED MED ADMINISTRATION DETAIL on 09-15-2024 ED MED 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 [place] [id number] 09/15/2024 Patient: ANA FULTON Sex: Female : 1980 Age: 44y MEASUREMENTS: Wt: 67.6 kg, Ht/Miguel: 66.0 in, BMI: 24.05 ALLERGIES: Vicodin Medication Ordered Medication Administration Date/Time PredniSONE PO 20 19:00 09/15 PredniSONE PO 20 mg given. Allergies verified and Given mg (NOW x1) confirmed 5 rights. Information reviewed with patient including 19:00 09/15/2024 reason for taking this medication, signs of allergic reaction and Caty Powers R.N. precautions. Verbalizes understanding. - 19:00 Caty Powers R.N. Scanned Amoxicillin-Clav 19:00 0209 Amoxicillin-Clav (Augmentin) PO 875 mg-125 mg Tab Given (Augmentin) PO 875 1 tab given. Allergies verified and confirmed 5 rights. Information 19:00 09/15/2024 mg-125 mg Tab 1 reviewed with patient including reason for taking this medication, Caty Powers R.N. tab (NOW x1) signs of allergic reaction and precautions. Verbalizes Scanned understanding. - 19:00 Caty Powers R.N. Acetaminophen-Co Completed deine (Tylenol #3) 19:35 09/15/2024 PO 2 tab Caty Powers R.N. 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 19:35 09/15/2024: Elvira canas Sent merrick e with patie nt Aydee Powers R.N. 2 of 2 Normal [facility] ED NURSES CLINICAL NOTEon ED NURSES CLINICAL NOTE Nurse Narrative Nurse Clinical Narrative [address] [address] [id number] 09/15/2024 Patient: ANA FULTON Sex: Female : 1980 Age: 44y Disposition: Discharge to Home Disposition Decision Time: 19:08 09/15/2024 Departure Time: 19:37 09/15/2024 TRIAGE Triage time: 18:23 09/15/2024. -- 18:23 09/15/24 AMAIRANI Monroe R.N. 18:29 09/15/24. BP: 116/75 MAP: 89. HR: 89. RR: 16. O2 saturation: 97% Temperature: 98.2 F (oral). Pain level now 10/10. Describes the pain as aching, tightness, sharp and throbbing. -- 18:30 09/15/24 AMAIRANI Monroe R.N. Arrived by private vehicle. Historian: (patient). Acuity: LEVEL 3. Chief Complaint: FLU, FEVER, COUGH, SORE THROAT and BODY ACHES. 18:31 09/15/24. Alert. Onset. (two Mondays ago started n/v). 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 The patient has had contact with a sick individual. The patient has had chest congestion, loss of taste and smell, sinus pain and a headache. The patient has had intermittent vomiting and diarrhea. Recent travel- ([place] 1 month ago). 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 (janki). SEPSIS SCREEN: NEGATIVE. SIRS criteria negative. No possible sources of infection. -- 18:09/15/24 AMAIRANI Monroe R.N. Measurements: 1 of 4 Nurse Narrative 18:30 09/15/24 Wt: 67.6 kg, Ht/Miguel: 66.0 in, BMI: 24.05 -- 18:30 09/15/24 AMAIRANI Monroe R.N. Medications: metformin 1,000 mg tablet: TAKE 1 TABLET BY MOUTH TWICE DAILY -- 18:33 09/15/24 AMAIRANI Monroe R.N. esomeprazole magnesium 20 mg capsule,delayed release: 20 mg once a day. -- 18:33 09/15/24 AMAIRANI Monroe R.N. 18:31 09/15/24. Preferred Pharmacy: ([facility]). -- 18:31 09/15/24 AMAIRANI Monroe R.N. Allergies: Vicodin -- 18:26 09/15/24 AMAIRANI Monroe R.N. Problems: Diabetes Mellitus -- 18:27 09/15/24 AMAIRANI Monroe R.N. ADDITIONAL SURGERIES: Cholecystectomy -- 18:35 09/15/24 AMAIRANI Monroe R.N. Tonsillectomy Adenoidectomy -- 18:35 09/15/24 AMAIRANI Monroe R.N. hiatal -- 18:35 09/15/24 AMAIRANI Monroe R.N.Correction -- 18:36 09/15/24 AMAIRANI Monroe R.N. hiatal hernia -- 18:36 09/15/24 AMAIRANI Monroe R.N. History 18:31 09/15/24. PAST MEDICAL HX: Other immunizations: up-to-date. LNMP: Last normal menstrual period was 2 weeks ago. Denies current . SOCIAL HX: Light tobacco smoker- less than 1/2 a pack per day. Occasional alcohol use. The patient has not traveled outside the [place] Infectious disease exposure: No infectious disease exposure. ABUSE ASSESSMENT: The patient answered yes to the question(s) Do you feel safe in your home? and 2 of 4 Nurse Narrative no to the question(s) Are you afraid to go home?. SELF HARM ASSESSMENT: Self harm assessment was performed. The patient answered no to the question(s) Have you recently felt down, depressed, or hopeless? and Do you have thoughts of harming or killing yourself?. FALL RISK ASSESSMENT: Fall risk assessment completed. No risk factors identified. -- 18:31 09/15/24 AMAIRANI Monroe R.N. Interventions 18:31 09/15/24. Identification band on patient. Advanced care plan. Patient does not have advanced directive. -- 18:31 09/15/24 AMAIRANI Monroe R.N. PHYSICAL ASSESSMENT 18:41 09/15/24. GENERAL / NEURO / PSYCH: Alert. Oriented X 4. Appears in no acute distress. Appears in pain. The patient has constant, generalized weakness (generalizewd body aches, head and sinus pain, chest pain with coughing). HEENT: Runny nose. RESPIRATORY: No respiratory distress. Respirations not labored.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 L 500.2500, L501.4020, L100.0100, L501.5200 #### [facility] [address] [place], [address] Basophils/100 WBC (Bld) 0.7 % Normal 0-1 [facility] Comment on above: Performed By: #### L 500.2500, L501.4020, L100.0100, L501.5200 #### [facility] [address] [place], [address] Eosinophils/100 WBC (Bld) 1.3 % Normal 0-5 [facility] Comment on above: Performed By: #### L 500.2500, L501.4020, L100.0100, L501.5200 #### [facility] [address] [place], [address] Erythrocyte distribution width (RBC) [Ratio] 15.5 % High 11.6-14.6 [facility] Comment on above: Performed By: #### L 500.2500, L501.4020, L100.0100, L501.5200 #### [facility] [address] [place], [address] Hematocrit (Bld) [Volume fraction] 40.0 % Normal 37-47 [facility] Comment on above: Performed By: #### L 500.2500, L501.4020, L100.0100, L501.5200 #### [facility] [address] [place], [address] Hemoglobin (Bld) [Mass/Vol] 12.9 g/dL Normal 12.0-15.0 [facility] Comment on above: Performed By: #### L 500.2500, L501.4020, L100.0100, L501.5200 #### [facility] [address] [place], [address] IG% 0.300 Normal 0.0-0.9 [facility] Comment on above: Result Comment: IG% - Immature Granulocytes (promyelocytes, myelocytes and metamyelocytes) > 1% indicates that a LEFT SHIFT is Present. Performed By: #### L 500.2500, L501.4020, L100.0100, L501.5200 #### [facility] [address] [place], [address] Lymphocytes/100 WBC (Bld) 30.6 % Normal 19-41 [facility] Comment on above: Performed By: #### L 500.2500, L501.4020, L100.0100, L501.5200 #### [facility] [address] [place], [address] MCH (RBC) [Entitic mass] 28.5 pg Normal 27.0-32.0 [facility] Comment on above: Performed By: #### L 500.2500, L501.4020, L100.0100, L501.5200 #### [facility] [address] [place], [address] MCHC (RBC) [Mass/Vol] 32.3 g/dL Normal 32-36 [facility] Comment on above: Performed By: #### L 500.2500, L501.4020, L100.0100, L501.5200 #### [facility] [address] [place], [address] MCV (RBC) [Entitic vol] 88.3 fL Normal 81-[address] [facility] Comment on above: Performed By: #### L 500.2500, L501.4020, L100.0100, L501.5200 #### [facility] [address] [place], [address] Monocytes/100 WBC (Bld) 10.3 % High 0-[address] [facility] Comment on above: Performed By: #### L 500.2500, L501.4020, L100.0100, L501.5200 #### [facility] [address] [place], [address] Neutrophils/100 WBC (Bld) 56.8 % Normal 47-70 [facility] Comment on above: Performed By: #### L 500.2500, L501.4020, L100.0100, L501.5200 #### [facility] [address] [place], [address] Nucleated RBC (Bld) [#/Vol] 0 10*3/uL Normal 0-5 [facility] Comment on above: Performed By: #### L 500.2500, L501.4020, L100.0100, L501.5200 #### [facility] [address] [place], [address] Platelet mean volume (Bld) [Entitic vol] 8.9 fL Normal 6.2-12.0 [facility] Comment on above: Performed By: #### L 500.2500, L501.4020, L100.0100, L501.5200 #### [facility] [address] [place], [address] Platelets (Bld) [#/Vol] 524 10*3/uL High 150-450 [facility] Comment on above: Performed By: #### L 500.2500, L501.4020, L100.0100, L501.5200 #### [facility] [address] [place], [address] RBC (Bld) [#/Vol] 4.53 10*6/uL Normal 4.2-5.4 [facility] Comment on above: Performed By: #### L 500.2500, L501.4020, L100.0100, L501.5200 #### [facility] [address] [place], [address] RDW SD 50.0 fl High 35.1-43.9 [facility] Comment on above: Performed By: #### L 500.2500, L501.4020, L100.0100, L501.5200 #### [facility] [address], [address] WBC (Bld) [#/Vol] 10.1 10*3/uL Normal 4.4-11.0 [facility] Comment on above: Performed By: #### L 500.2500, L501.4020, L100.0100, L501.5200 #### [facility] [address] [place], [address] Chest 1 View (Portable)on Chest 1 View (Portable) [facility] Imaging Services [address] [place] [address] Chest 1 View (Portable) MR#: [id number] Acct: [id number] Name: ANA FULTON Rep #: [id number] : 1980 F 43 From: Emy nye MD PCP: JAYLA South Status: REG ER Study: Chest 1 View (Portable) Date of Exam: 02/18/24 Exam# [id number] Ordering Dr: Federico Bauer MD [id number] HISTORY: chest pain. TECHNIQUE: XR Chest 1 View. COMPARISON: 10/19/2015. FINDINGS: CARDIOMEDIASTINAL BORDERS: Cardiac silhouette within normal limits in size. Mediastinal contour unremarkable. LUNGS: Radiographically clear. PLEURA: No pleural effusion or pneumothorax seen. OSSEOUS STRUCTURES: Unremarkable. RAD/Chest 1 View (Portable) IMPRESSION: No acute cardiopulmonary process identified. Electronically Signed: Emy Gonzalez MD at 14:00 EDT Reading Location ID and State: [facility] / [place] Tel , Service support , CC: JAYLA Briones; Dr. Federico Bauer MD Adult Daycare Coordinator: Signed Normal [facility] Emergency Department Summary on 02-18-2024 Emergency Department Summary [facility] Medical Records Department [address] [place] [address] Emergency Department Summary 02/18/24 MR#: [id number] Acct: [id number] Name: ANA FULTON Rep #: [id number] : 1980 43 From: Federico Bauer MD PCP: JAYLA South Status:REG ER Location: ED ADDENDUM by Dr. Federico Bauer MD on 02/18/24 at 1433 EKG was obtained and interpreted by myself independently as normal sinus rhythm at 83 bpm without ectopy or acute ST changes. No STEMI. 02/18/24 1433 Cosigner Signature (if applicable): cc: LCSWLuciano Briones * Signed HPI History of Present Illness Chief Complaint: Chest Pain Narrative Narrative: 43-year-old female past medical history of diabetes, on metformin, also has history of panic attacks presents with multiple somatic complaints similar to her previous panic attacks. She states that she was written for hydroxyzine but does not like to take it because it makes her sleepy. About an hour ago, as she was cleaning, she started to feel very lightheaded and dizzy. She felt like a panic attack was coming on. She experienced chest pain, but she denies any nausea or vomiting, no shortness of breath associated with it. She states that whenever she tries to open her eyes, she feels really lightheaded and dizzy. Previously, when she had her worst panic attack, she had come to the ED and she received a medication. She states that this is worsened that. She does not usually take hydroxyzine because it makes her sleepy, and that she becomes lightheaded as well. Additionally, she states she usually does not drink alcohol, but she did imbibe yesterday evening, and is not sure if the way she is feeling is secondary to that. [facility] Medical History (Updated 02/18/24 @ 14:11 by Xuan Du) Diabetes Physical exam, pre-employment Home Medications ???Medication ???Instructions ???Recorded ???Last Taken ???Type metronidazole 500 mg tablet 500 mg PO BID 7 days #14 tabs 04/21/21 Unknown Rx cephalexin 500 mg capsule 500 mg PO Q6 #40 CAPSULES 12/21/22 Unknown Rx sulfamethoxazole 800 1 tab PO BID #20 TABLETS 12/21/22 Unknown Rx mg-trimethoprim 160 mg tablet Allergy/AdvReac Type Severity Reaction Status Date / Time acetaminophen (From Vicodin) AdvReac Nausea Verified 02/18/24 13:00 hydrocodone bitartrate (From AdvReac Nausea Verified 02/18/24 13:00 Vicodin) Surgical History History of cholecystectomy History of loop electrical excision procedure (LEEP) History of tonsillectomy Social History Smoking Status: Light Smoker (<10/day) ROS ROS ED ROS Narrative Constitutional: No fever, no chills. HEENT: No sore throat. No neck pain. No loss of vision. No rhinorrhea. Cardiovascular: Intermittent chest pain. No palpitations. No pedal edema. Respiratory: Positive weeks of cough, no shortness of breath. Abdominal: No abdominal pain. No nausea. No vomiting. Genitourinary: No dysuria. No hematuria. Musculoskeletal: No myalgias. No arthralgias. Neurologic: No headaches. Positive dizziness and lightheadedness. Skin: No rash. No change in color. Psychiatric: No depression. Positive anxiety. EXAM Physical Exam Narrative Exam Narrative: Afebrile. Vital signs noted. HEENT: Normocephalic. Atraumatic. PERRL, EOMI. Neck soft and supple. No point tenderness or step off. Cardiovascular: Regular rate and rhythm. No murmurs, rubs, or gallops appreciated. Respiratory: No tachypnea. Lungs clear to auscultation bilaterally. Gastrointestinal: Abdomen soft, nontender, with normoactive bowel sounds. No rebound or guarding. Neurological: Awake. Alert. Nonfocal, nonlateralizing. Skin: No rash. Normal color. No pallor. Musculoskeletal: No pedal edema. Full range of motion extremities. Const Vital Signs: 02/18/24 13:00 02/18/24 13:27 02/18/24 14:00 Temperature 96.5 F L Temperature Source Temporal Pulse Rate 94 68 Pulse Rate [Lying] Pulse Rate [Sitting (for 1 minute prior to obtaining)] Pulse Rate [Standing (for 1 minute prior to obtaining)] Respiratory Rate 16 16 Respiratory Effort Blood Pressure 125/85 H 100/67 Blood Pressure [Lying] Blood Pressure [Sitting (for 1 minute prior to obtaining)] Blood Pressure [Standing (for 1 minute prior to obtaining)] Blood Pressure Mean 98 78 Blood Pressure Mean [Lying] Blood Pressure Mean [Sitting (for 1 minute prior to obtaining)] Blood Pressure Mean [Standing (for 1 minute prior to obtaining)] Pulse Ox 95 98 97 Oxygen Delivery Method Room Air Room Air Room Air 02/18/24 14:10 02/18/24 14:12 Temperature Temperature Source Pulse Rate Pulse Rate [Lying] 76 Pulse Rate [Sitting (for 1 minute prior t (more content not included)... Normal [facility] L501.4020on 02-18-2024 TROPONIN-I HS < 3 Low 3.0-54.0 [facility] Comment on above: Order Comment: 'TROP ' Serial specimen #1, #2 or #3: 1 Result Comment: Margarito moore Note: New Test Units and Gender Specific Reference Ranges. For more information see Policy Stat Procedure [place] High Sensitivity Troponin (TNIH) and attachments. Performed By: #### L 500.2500, L501.4020, L100.0100, L501.5200 ####[facility] [address] [place], [address] Magnesiumon 02-18-2024 Magnesium [Mass/Vol] 1.7 mg/dL Normal 1.6-2.6 [facility] Comment on above: Order Comment: 'TROP ' Serial specimen #1, #2 or #3: 1 Performed By: #### L 500.2500, L501.4020, L100.0100, L501.5200 ####[facility] [address] [place], [address] Office Visit Reporton 2022 Office Visit Report [facility] [address] [place] [address] OFFICE VISIT Date of Service: 06/25/23 MR#: [id number] Acct: [id number] Patient: ANA FULTON Rep #: [id number] : 1980 Provider: JAYLA quezada Age/Sex: 42/F Location: [facility] [place] Status: Signed Intake Vital Signs 12/21/22 15:31 Height 5 ft 6 in Intake Visit Reasons: PE NON DOT PHYSICAL/ SELF PAY Allergies acetaminophen [From Vicodin] Adverse Reaction (Verified 12/21/22 15:31) Nausea hydrocodone bitartrate [From Vicodin] Adverse Reaction (Verified 12/21/22 15:31) Nausea PFSH Medical History Physical exam, pre-employment Surgical History History of cholecystectomy History of loop electrical excision procedure (LEEP) History of tonsillectomy Social History Smoking Status: Light Smoker (<10/day) HPI HPI Details: ANA FULTON, is a 42 F who presents to the office today for cycle. 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 She is a newly diagnosed type II diabetic in the past several months. She states she is trying very hard to have control over her blood sugars. She is currently on metformin. ROS Const Constitutional: No chills, fatigue, fever(s), headache(s), weakness or abnormal sleep pattern Eyes Eyes: No change in vision ENT ENT: No abnormal hearing, ear or mastoid pain, dizziness/vertigo, balance problems, sinus pressure, headache(s), difficulty swallowing or sore throat Resp Respiratory: No cough, chest congestion or shortness of breath Cardio Cardiology: No chest pain at rest or palpitations Gastro GI: No abdominal pain or difficulty swallowing Genitourinary-Female: No difficulty urinating Musc Musculoskeletal: No abnormal gait, limited range of motion or muscle weakness Skin Skin: No change in hair or change in skin color Neuro Neurology: No abnormal gait, abnormal hearing, dizziness, weakness or headache(s) Psych Psychiatric: No abnormal sleep pattern and No anxiety Endo Endocrine: No change in body appearance or fatigue Exam Const General: cooperative and no acute distress Nutritional Appearance: well nourished Orientation: alert and awake HENAZ Head: normocephalic Ears: hearing grossly normal bilaterally Nose: external nose normal Face and sinus: normal facial exam and sinuses nontender Mouth: oral mucosae normal and oropharynx normal Teeth and gingiva: dentition normal Throat: posterior oropharynx normal Eyes General: appearance normal, both eyes and all related structures Conjunctivae: conjunctivae normal Pupils: PERRL Neck Neck: normal visual inspection, full ROM and no lymphadenopathy Resp Effort Inspection: normal respiratory effort, able to speak in complete sentences, symmetric chest movement and no cough Auscultation: Bilateral: Clear to Auscultation Cardio Palpation: normal PMI Rate: regular rate Rhythm: regular rhythm Heart Sounds: S1 normal and S2 normal GI Inspection: normal to inspection Auscultation: normal bowel sounds Palpation: soft and nontender General: deferred Musc Musculoskeletal: No joint tenderness or decreased range of motion Cervical Spine: cervical ROM normal Thoracic/Lumbar Spine: thoraco-lumbar ROM normal and straight leg raise negative bilaterally Skin General: no rashes or lesions noted Neuro General: patient alert and patient awake Cranial Nerves: CN's II-XI intact bilaterally Extrem General: normal to inspection, full ROM and capillary refill normal Psych Appearance: grossly normal and well kempt Mental Status: mental status grossly normal Coding Level of Care Code Attention Kasey Diagnoses Physical exam, pre-employment Z02.1 Comment 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 Then to the computer She is a newly diagnosed type II diabetic. Encouraged her to eat low carbohydrate high-protein diet with a lot of vegetables. 06/28/23 0950 > Date Suma Hayes Signature: Date (if applicable) CC: Normal [facility] Reporton 2021 [facility] Report . Pathology Reports Accession: Collected Date/Time: Received Date/Time: Pathologist: [id number] 11/24/2021 15:43 EDT 11/24/2021 18:00 EDT [facility] Report SPECIMEN: Specimen Description: Liquid Prep w/ HPV Specimen: Cervical Screening or Diagnostic: Screening RELEVANT HISTORY: LMP: not given [id number] SPECIMEN ADEQUACY: SATISFACTORY FOR EVALUATION ENDOCERVICAL/TRANSFORMATI ONAL ZONE COMPONENT ABSENT/INSUFFICIENT INTERPRETATION/RESULTS: NEGATIVE FOR INTRAEPITHELIAL LESION OR MALIGNANCY. ABUNDANT BACTERIA PRESENT. COMMENT: This Pap Test was analyzed by the [employer] ThinPrep Test Imaging System. Processing failed. Man ual screening was indicated. Electronically Signed by Pathology report verified by [facility] Screened by: KK Electronically signed by Delaney BURRELL (ASCP) Sign-Out Date: 12/01/2021 14:35 Performing Lab: [facility], [address] [place] [id number] [place] Disclaimer The Pap test is a screening test for cervical cancer. As evidenced by published data, it is sub ject to both inherent false negative and false positive results. Your patient's results should be interpreted in context with pertinent clinical history including gynecological examination. Normal [facility] ([place]) HPVon 11-30-2021 HPV Interp Normal See [facility] HPVN [facility]) Comment on above: Order Comment: Order placed by AP_HPV_ORDER rule from [id number] Result Comment: High Risk HPV Typing: NEGATIVE HPV types 16, 18, 31, 33, 35, 39, 45, 51, 52, 56, 58, 59, 66 and 68 DNA were undetectable or below the pre-set threshold. The alice High-Risk HPV DNA Test is not intended for use as a screening device for Pap normal women under age 30 and is not intended to substitute for regular Pap screening. The alice High-Risk HPV DNA Test is designed to augment existing methods for the detection of cervical disease and should be used in conjunction with clinical information derived from other diagnostic and screening tests, physical examinations and full medical history in accordance with appropriate patient management procedures. NOTE: A negative result does not preclude the presence of HPV infection because results depend on adequate specimen collection, absence of inhibitors and sufficient DNA to be detected. See [facility] HPVN Performed By: #### H PV #### [place] [address] HPV Source Cervix Normal [facility] ([place]) Comment on above: Order Comment: Order placed by AP_HPV_ORDER rule from [id number] Performed By: #### H PV #### [place] [id number] [facility] Reporton 2020 [facility] Report . Pathology Reports Accession: Collected Date/Time: Received Date/Time: Pathologist: [id number] 04/07/2021 10:32 EDT 04/08/2021 18:00 EDT [facility] Report SPECIMEN: Specimen Description: Liquid Prep Specimen: Cervical Screening or Diagnostic: Screening RELEVANT HISTORY: LMP: 03/26/21 IUD: YES [id number] SPECIMEN ADEQUACY: SATISFACTORY FOR EVALUATION ENDOCERVICAL/TRANSFORMATI ONAL ZONE COMPONENT ABSENT/INSUFFICIENT INTERPRETATION/RESULTS: NEGATIVE FOR INTRAEPITHELIAL LESION OR MALIGNANCY COMMENT: This Pap Test was successfully processed and evaluated with the assistance of the [employer] Test Imaging System. Electronically Signed by Pathology report verified by [facility] Screened by: [place] Electronically signed by Skylar BURRELL (ASCP) Sign-Out Date: 04/19/2021 09:50 Performing Lab: [facility], [address] [place] [address] Disclaimer The Pap test is a screening test for cervical cancer. As evidenced by published data, it is subject to both inherent false negative and false positive results. Your patient's results should be interpreted in context with pertinent clinical history including gynecological examination. Normal [facility] ([place]) Comment on above: Performed By: #### G YCR #### [place] [address] HSV 1,2 Ab, IgG+IgM FOR REF LAB USE [facility] 12-22-2020 Herpes Simplex IgM 0.69 OD Ratio Normal 0-0.90 [facility] Reference Lab Comment on above: Performed By: #### H SVGM #### [facility] Routine Lab [address], [place] [address] HSV IgM Qualitative Negative Normal Negative [facility] Reference Lab Comment on above: Performed By: #### H SVGM #### [facility] Routine Lab [address], [place] [address] GC/Chlamydia Amp, Uron 12-20 Chlamydia Amplif, Ur Normal [facility] Reference Lab Comment on above: Result Comment: Nega tive for For screening asymptomatic women, a vaginal swab specimen (APTIMA vaginal swab 956089) is optimal. Urine specimens have reduced sensitivity for Chlamydia trachomatis or Neisseria gonorrhoeae infection in female patients without symptoms. This test was developed and its performance characteristics determined by [facility]'s Alpesh Dominique [facility] Pathology and Laboratory Medicine [facility] ([facility]). It has not been cleared or approved by the FDA. [facility] is regulated under CLIA as qualified to perform high complexity testing. This test is used for clinical purposes. It should not be regarded as investigational or for research. Chlamydia For screening asymptomatic women, a vaginal swab specimen (APTIMA vaginal swab 482739) is optimal. Urine specimens have reduced sensitivity for Chlamydia trachomatis or Neisseria gonorrhoeae infection in female patients without symptoms. This test was developed and its performance characteristics determined by [facility] [place] [facility]ology [facility] ([facility]). It has not been cleared or approved by the FDA. [facility] is regulated under CLIA as qualified to perform high complexity testing. This test is used for clinical purposes. It should not be regarded as investigational or for research. trachomatis by For screening asymptomatic women, a vaginal swab specimen (APTIMA vaginal swab 296996) is optimal. Urine specimens have reduced sensitivity for Chlamydia trachomatis or Neisseria gonorrhoeae infection in female patients without symptoms. This test was developed and its performance characteristics determined by [facility] [place] [facility] ( [facility]). It has not been cleared or approved by the FDA. [facility] is regulated under CLIA as qualified to perform high complexity testing. This test is used for clinical purposes. It should not be regarded as investigational or for research. amplification. For screening asymptomatic women, a vaginal swab specimen (APTIMA vaginal swab 015513) is optimal. Urine specimens have reduced sensitivity for Chlamydia trachomatis or Neisseria gonorrhoeae infection in female patients without symptoms. This test was developed and its performance characteristics determined by [facility] Pathology and Laboratory [facility] ([facility]). It has not been cleared or approved by the FDA. [facility] is regulated under CLIA as qualified to perform high complexity testing. This test is used for clinical purposes. It should not be regarded as investigational or for research. Performed By: #### U GCCT #### [facility] Routine Lab [address], [place] [address] GC Amplification, Ur NGNEG Normal [facility] Reference Lab Comment on above: Performed By: #### U GCCT #### [facility] Routine Lab [address], [place] [id number] HSV 1,2 Ab, IgG+IgM FOR REF LAB USE ONLY12-19-2020 Herpes Simplex IgG 1 7.0 AI Normal [facility] Reference Lab Comment on above: Performed By: #### H SVGM #### [facility] Routine Lab [address], [place] [id number] Herpes Simplex IgG 2 >8.0 Normal [facility] Reference Lab Comment on above: Performed By: #### H SVGM #### [facility] Routine Lab [address], [place] [address] [phone] HSV IgG 1 Qualitative Positive Abnormal Negative [facility] Reference Lab Comment on above: Performed By: #### H SVGM #### [facility] Routine Lab [address] [place] [phone] HSV IgG 2 Qualitative Positive Abnormal Negative [facility] Reference Lab Comment on above: Performed By: #### H SVGM #### [facility] Routine Lab [address] [place] [address] RPRon 12-19-2020 Reagin Ab RPR Ql (S) NR Normal Non Reactive [facility] Reference Lab Comment on above: Performed By: #### R VT #### [facility] Immuno Assay [address] [place] [phone] #### HACUTP #### [facility] Routine Lab [address] [place] [phone] Hepatitis Acute Panel * OUTS ANETA CLIENTS ONLY *on 12-18-2020 Hep B Core Ab, IgM NEGAT Normal Negative [facility] Reference Lab Comment on above: Performed By: #### R VT #### [facility] Immuno Assay [address], [place] [address] [phone] #### HACUTP #### [facility] Routine Lab [address] [place], [place] [address] Hepatitis A Ab IgM NEGAT Normal Negative [facility] Reference Lab Comment on above: Performed By: #### R VT #### [facility] Immuno Assay [address] [place] [phone] #### HACUTP #### [facility] Routine Lab [address] [place], [place] [address] Hepatitis C Ab IA NEGAT Normal Negative [facility] Reference Lab Comment on above: Performed By: #### R VT #### [facility] Immuno Assay [address] [place] [address] #### HACUTP #### [facility] Routine Lab [address] [place] [address] HBsAg NEGAT Normal Negative [facility] Reference Lab Comment on above: Performed By: #### R VT #### [facility] Immuno Assay [address] [place] [address] #### HACUTP #### [facility] Routine Lab [address] [place] [address] GC/Chlamydia Amp, Uron 09-27 Chlamydia Amplif, Ur Normal [facility] Reference Lab Comment on above: Result Comment: Nega tive for For screening asymptomatic women, a vaginal swab specimen (APTIMA vaginal swab 911865) is optimal. Urine specimens have reduced sensitivity for Chlamydia trachomatis or Neisseria gonorrhoeae infection in female patients without symptoms. This test was developed and its performance characteristics determined by [facility] [place] [facility] Pathology [facility] Laboratory [facility] ([facility]). It has not been cleared or approved by the FDA. [facility] is regulated under CLIA as qualified to perform high complexity testing. This test is used for clinical purposes. It should not be regarded as investigational or for research. Chlamydia For screening asymptomatic women, a vaginal swab specimen (APTIMA vaginal swab 590564) is optimal. Urine specimens have reduced sensitivity for Chlamydia trachomatis or Neisseria gonorrhoeae infection in female patients without symptoms. This test was developed and its performance characteristics determined by [facility] [place] [facility] ([facility]). It has not been cleared or approved by the FDA. [facility] is regulated under CLIA as qualified to perform high complexity testing. This test is used for clinical purposes. It should not be regarded as investigational or for research. trachomatis by For screening asymptomatic women, a vaginal swab specimen (APTIMA vaginal swab 140067) is optimal. Urine specimens have reduced sensitivity for Chlamydia trachomatis or Neisseria gonorrhoeae infection in female patients without symptoms. This test was developed and its performance characteristics determined by [facility] ([facility]). It has not been cleared or approved by the FDA. [facility] is regulated under CLIA as qualified to perform high complexity testing. This test is used for clinical purposes. It should not be regarded as investigational or for research. amplification. For screening asymptomatic women, a vaginal swab specimen (APTIMA vaginal swab 888985) is optimal. Urine specimens have reduced sensitivity for Chlamydia trachomatis or Neisseria gonorrhoeae infection in female patients without symptoms. This test was developed and its performance characteristics determined by [facility] [place] [facility]ology [facility] Laboratory [facility] ([facility]). It has not been cleared or approved by the FDA. [facility] is regulated under CLIA as qualified to perform high complexity testing. This test is used for clinical purposes. It should not be regarded as investigational or for research. Performed By: #### U GCCT #### [facility] Routine Lab [address] [place], [place] [address] GC Amplification, Ur NGNEG Normal [facility] Reference Lab Comment on above: Performed By: #### U GCCT #### [facility] Routine Lab [address] [place], [place] [address] Otheron 06-25-2020 Impression: The uter us is inhomogeneous and may contain tiny fibroids. The endometrium is within normal limits of size. The ovaries are unremarkable. A small cystic area is seen in the left ovary. [place], [place] Comparison: No prior Diagnosis: R10.2 Adnexal pain ICD10 Technique: US PELVIS COMPLETE, US NON OB TRANSVAGINAL Findings: The uterus measures 9.2 x 6.4 x 6.7 cm. It appears inhomogeneous. No large fibroids are identified. The endometrial cavity measures 0.6 cm. The right ovary measures 2.1 x 1.4 x 1.6 cm for volume of 2.5 mL. The left ovary measures 2.0 x 2.0 x 2.7 cm for volume of 5.6 mL. It contains a cystic structure that measures 1.2 x 1.0 x 1.0 cm. Vascularity is seen in both ovaries. Small amount of free fluid is seen in the cul-de-sac.. The urinary bladder is not well visualized. [place], [place] Mohsen, Chpo Incoming Radiant Results From [facility] - 06/25/2020 2:13 PM EST Comparison: No prior Diagnosis: R10.2 Adnexal pain ICD10 Technique: US PELVIS COMPLETE, US NON OB TRANSVAGINAL Findings: The uterus measures 9.2 x 6.4 x 6.7 cm. It appears inhomogeneous. No large fibroids are identified. The endometrial cavity measures 0.6 cm. The right ovary measures 2.1 x 1.4 x 1.6 cm for volume of 2.5 mL. The left ovary measures 2.0 x 2.0 x 2.7 cm for volume of 5.6 mL. It contains a cystic structure that measures 1.2 x 1.0 x 1.0 cm. Vascularity is seen in both ovaries. Small amount of free fluid is seen in the cul-de-sac.. The urinary bladder is not well visualized. IMPRESSION: Impression: The uterus is inhomogeneous and may contain tiny fibroids. The endometrium is within normal limits of size. The ovaries are unremarkable. A small cystic area is seen in the left ovary. [place], [place] US NON OB TRANSVAGINALon US NON OB TRANSVAGINAL Comparison: No pr ior Diagnosis: R10.2 Adnexal pain ICD10 Technique: US PELVIS COMPLETE, US NON OB TRANSVAGINAL Findings: The uterus measures 9.2 x 6.4 x 6.7 cm. It appears inhomogeneous. No large fibroids are identified. The endometrial cavity measures 0.6 cm. The right ovary measures 2.1 x 1.4 x 1.6 cm for volume of 2.5 mL. The left ovary measures 2.0 x 2.0 x 2.7 cm for volume of 5.6 mL. It contains a cystic structure that measures 1.2 x 1.0 x 1.0 cm. Vascularity is seen in both ovaries. Small amount of free fluid is seen in the cul-de-sac.. The urinary bladder is not well visualized. IMPRESSION: Impression: The uterus is inhomogeneous and may contain tiny fibroids. The endometrium is within normal limits of size. The ovaries are unremarkable. A small cystic area is seen in the left ovary. Interpreted by: Spencer Ortiz DO Signed by: Spencer Ortiz DO 06/25/20 Final result Normal [facility] US PELVIS COMPLETEon 020 US PELVIS COMPLETE Comparison: No prior Diagnosis: R10.2 Adnexal pain ICD10 Technique: US PELVIS COMPLETE, US NON OB TRANSVAGINAL Findings: The uterus measures 9.2 x 6.4 x 6.7 cm. It appears inhomogeneous. No large fibroids are identified. The endometrial cavity measures 0.6 cm. The right ovary measures 2.1 x 1.4 x 1.6 cm for volume of 2.5 mL. The left ovary measures 2.0 x 2.0 x 2.7 cm for volume of 5.6 mL. It contains a cystic structure that measures 1.2 x 1.0 x 1.0 cm. Vascularity is seen in both ovaries. Small amount of free fluid is seen in the cul-de-sac.. The urinary bladder is not well visualized. IMPRESSION: Impression: The uterus is inhomogeneous and may contain tiny fibroids. The endometrium is within normal limits of size. The ovaries are unremarkable. A small cystic area is seen in the left ovary. Interpreted by: Spencer Ortiz DO Signed by: Spencer Ortiz DO 06/25/20 Final result Normal [facility] ACUTE TOXICOLOGY PANEL, BLOO Don 04-16-2020 Acetaminophen [Mass/Vol] <10.0 Normal 10.0 - 30.0 [facility] Comment on above: Performed By: #### D RUBL #### [address] [address] Ethanol [Mass/Vol] 141 mg/dL Abnormal [facility] [place] on above: Result Comment: FOR MEDICAL USE ONLY. . REF VALUES <10 Performed By: #### D RUBL #### [address] [address] SALICYLATE <3 Normal 4 - 20 [facility] Comment on above: Performed By: #### D RUBL #### [address] [address] ALCOHOLon 04-16-2020 Ethanol [Mass/Vol] 84 mg/dL Abnormal [facility] [place] on above: Result Comment: FOR MEDICAL USE ONLY. . REF VALUES <10 Performed By: #### A LC ####[address] [address] CBC AND DIFFERENTIALon 04-16 % AUTOMATED IMMATURE GRAN 0.7 % Normal 0.0 - 0.9 [facility] Comment on above: Result Comment: Caro ture Granulocyte Count (IG) includes promyelocytes, myelocytes and metamyelocytes but does not include bands. Percent differential counts (%) should be interpreted in the context of the absolute cell counts (cells/L). Performed By: #### C BCDF #### [address] [address] DIFFERENTIAL SEE MANUAL DIFF Normal [facility] Comment on above: Performed By: #### C BCDF #### [address] [address] Erythrocyte distribution width (RBC) [Ratio] 14.8 % High 11.5 - 14.5 [facility] [place] Comment on above: Performed By: #### C BCDF #### [address] [address] Hematocrit (Bld) [Volume fraction] 46.9 % High 36.0 - 46.0 [facility] Comment on above: Performed By: #### C BCDF #### [address] [address] Hemoglobin (Bld) [Mass/Vol] 15.4 g/dL Normal 12.0 - 16.0 [facility] Comment on above: Performed By: #### C BCDF #### [address] [address] MCHC (RBC) [Mass/Vol] 32.8 g/dL Normal 32.0 - 36.0 [facility] Comment on above: Performed By: #### C BCDF #### [address] [address] MCV (RBC) [Entitic vol] 87 fL Normal 80 - 100 [facility] [place] Comment on above: Performed By: #### C BCDF #### [address] [address] Nucleated RBC/100 WBC (Bld) [Ratio] 0.0 /100 WBC Normal 0.0 - 0.0 [facility] Comment on above: Performed By: #### C BCDF #### [address] [address] Platelets (Bld) [#/Vol] 656 10*3/uL High 150 - 450 [facility] [place] Comment on above: Performed By: #### C BCDF #### [address] [address] RBC (Bld) [#/Vol] 5.41 x10E12/L High 4.00 - 5.20 [facility] Comment on above: Performed By: #### C BCDF #### [address] [address] WBC (Bld) [#/Vol] 18.0 10*3/uL High 4.4 - 11.3 [facility] [place] Comment on above: Performed By: #### C BCDF #### [address] [address] COMPREHENSIVE PANELon 2019 Albumin [Mass/Vol] 4.4 g/dL Normal 3.4 - 5.0 [facility] [place] on above: Performed By: #### C MP #### [address] [address] ALP [Catalytic activity/Vol] 115 U/L High 33 - 110 [facility] Comment on above: Performed By: #### C MP #### [address] [address] ALT [Catalytic activity/Vol] 56 U/L High 7 - 45 [facility] [place] Comment on above: Result Comment: Domonique ents treated with Sulfasalazine may generate falsely decreased results for ALT. Performed By: #### C MP #### [address] [address] Anion gap [Moles/Vol] 19 mmol/L Normal 10 - 20 [facility] Comment on above: Performed By: #### C MP #### [address] [address] AST [Catalytic activity/Vol] 48 U/L High 9 - 39 [facility] Comment on above: Performed By: #### C MP #### [address] [address] Bilirubin [Mass/Vol] 0.4 mg/dL Normal 0.0 - 1.2 [facility] [place] Comment on above: Performed By: #### C MP #### [address] [address] Calcium [Mass/Vol] 9.0 mg/dL Normal 8.6 - 10.3 [facility] [place] Comment on above: Performed By: #### C MP #### [address] [address] Chloride [Moles/Vol] 104 mmol/L Normal 98 - 107 [facility] Comment on above: Performed By: #### C MP #### [address] [address] Creatinine [Mass/Vol] 0.69 mg/dL Normal 0.50 - 1.05 [facility] Comment on above: Performed By: #### C MP #### [address] [address] GFR- AM. >60 Normal >60 [facility] Comment on above: Result Comment: CALC ULATIONS OF ESTIMATED GFR ARE PERFORMED USING THE MDRD STUDY EQUATION FOR THE IDMS-TRACEABLE CREATININE METHODS. CLIN CHEM 2007;53:766-72 Performed By: #### C MP #### [address] [address] GFR-NON AM. >60 Normal >60 [facility] Comment on above: Performed By: #### C MP #### [address] [address] Glucose [Mass/Vol] 110 mg/dL High 74 - 99 [facility] [place] Comment on above: Performed By: #### C MP #### [address] [address] HCO3 (Bld) [Moles/Vol] 20 mmol/L Low 21 - 32 [facility] Comment on above: Performed By: #### C MP #### [address] [place] [address] Potassium [Moles/Vol] 3.9 mmol/L Normal 3.5 - 5.3 [facility] Comment on above: Performed By: #### C MP #### [address] [place] [address] Protein [Mass/Vol] 7.2 g/dL Normal 6.4 - 8.2 [facility] [place] Comment on above: Performed By: #### C MP #### [address] [address] Sodium [Moles/Vol] 139 mmol/L Normal 136 - 145 [facility] [place] Comment on above: Performed By: #### C MP #### [address] [address] Urea nitrogen [Mass/Vol] 6 mg/dL Normal 6 - 23 [facility] Comment on above: Performed By: #### C MP #### [address] [address] EMR ADDONon 04-16-2020 ADDON CONFIRMATION REQUEST REC'D Normal [facility] Comment on above: Performed By: #### E MRAD #### [address] [address] GC + CHLAMYDIA BY AMPLIFIED DETECTIONon 04-16-2020 CHLAMYDIA TRACH.,AMPLIFIED Negative Normal Negative [facility] Comment on above: Performed By: #### G [facility] ####[id number] [place] [address] N.GONORRHEA,AMPLIFIED Negative Normal Negative [facility] Comment on above: Performed By: #### G CCHA ####[id number] [place] [address] Lab Specimen Source Urine Normal [facility] [place] Comment on above: Performed By: #### G CCHA ####[id number] [place] [address] HCG,URINEon 04-16-2020 Beta HCG ( test) Ql (U) Negative Normal Negative [facility] Comment on above: Performed By: #### H CGU #### [address] [address] MANUAL DIFFERENTIALon 04-16- 2019 % EOSINOPHIL 0.0 % Normal 0.0 - 6.0 [facility] Comment on above: Performed By: #### M DIFF #### [address] [address] % LYMPH-ATYPICAL 3.0 % Normal 0.0 - 2.0 [facility] Comment on above: Performed By: #### M DIFF #### [address] [address] % SEG NEUTROPHIL 39.0 % Normal 40.0 - 80.0 [facility] Comment on above: Result Comment: Perc ent differential counts (%) should be interpreted in the context of the absolute cell counts (cells/L). Performed By: #### M DIFF #### [address] [address] ANC 7.20 x10E9/L Normal 1.20 - 7.70 [facility] Comment on above: Performed By: #### M DIFF #### [address] [address] Band form neutrophils/100 WBC (Bld) 1.0 % Normal 0.0 - 5.0 [facility] Comment on above: Performed By: #### M DIFF #### [address] [address] BAND NEUTROPHIL 0.18 x10E9/L Normal 0.00 - 0.70 [facility] Comment on above: Performed By: #### M DIFF #### [address] [address] BASOPHIL 0.00 x10E9/L Normal 0.00 - 0.10 [facility] Comment on above: Performed By: #### M DIFF #### [address] [address] Basophils/100 WBC (Bld) 0.0 % Normal [facility] Comment on above: Performed By: #### M DIFF #### [address] [address] EOSINOPHIL 0.00 x10E9/L Normal 0.00 - 0.70 [facility] Comment on above: Performed By: #### M DIFF #### [address] [address] LYMPH-ATYPICAL 0.54 x10E9/L High 0.00 - 0.50 [facility] Comment on above: Performed By: #### M DIFF #### [address] [address] LYMPHOCYTE 8.64 x10E9/L High 1.20 - 4.80 [facility] Comment on above: Performed By: #### M DIFF #### [address] [address] Lymphocytes/100 WBC (Bld) 48.0 % Normal 13.0 - 44.0 [facility] Comment on above: Performed By: #### M DIFF #### [address] [address] MONOCYTE 1.62 x10E9/L High 0.10 - 1.00 [facility] Comment on above: Performed By: #### M DIFF #### [address] [address] Monocytes/100 WBC (Bld) 9.0 % Normal 2.0 - 10.0 [facility] Comment on above: Performed By: #### M DIFF #### [address] [address] SEG NEUTROPHIL 7.02 x10E9/L High 1.20 - 7.00 [facility] Comment on above: Performed By: #### M DIFF #### [address] [address] Provider Note - ED v2on 04-07 Provider Note - ED v2 Provider Note - ED v2: Chart Review: ED NOTES ED NOTES: Patient is a 39-year-old female presents the emergency department via EMS with suicidal ideation. Patient self reports a history of alcohol abuse. Has been sober and relapsed tonight. She was feeling down due to life stressors and her boyfriend cheating on her. She told her son that she felt suicidal. No specific plan. Son called EMS who brought the patient to the emergency department. Patient is admitting that she said that she had thoughts of suicide. No plan. No previous history of suicide attempts. Denies any drug use, chest pain, shortness of breath, fevers, chills, abdominal pain, nausea and vomiting. Of note, the patient is concerned for STDs. States she has been treated for GC chlamydia in the past. She also feels that she currently has bacterial vaginosis. Past medical history: GERD, migraine headaches, alcohol abuse Surgical history: Cholecystectomy, tubal ligation, tonsillectomy Social history: Admits to smoking and alcohol use. Denies drug use. HISTORY OF PRESENTING ILLNESS ANA is a 39 year old Female and was seen by me at 15-Apr-2020 23:53 for a chief complaint of suicidal thoughts . Triage Information: Most recent Vital Sign Value Date Temp (F): 98.2 04-15-2020 23:57 Temp (C): 36.8 04-15-2020 23:57 Heart Rate (beats/min): 116 04-15-2020 23:57 Respirations (breaths/min): 18 04-15-2020 23:57 SpO2 (%): 98 04-15-2020 23:57 BP Systolic (mm Hg): 115 04-15-2020 23:57 BP Diastolic (mm Hg): 82 04-15-2020 23:57 PAST MEDICAL HISTORY ATTESTATION: I have reviewed and confirmed nurse's/medic's notes for patient's medications, allergies, medical history, and surgical history ALLERGIES/INTOLERANCES: Allergy Allergen: Vicon Forte Type: Drug Reaction: Unknown HEALTH HISTORY: No documented data. OUTPATIENT MEDICATIONS: Home Medications Review Status for Reconciliation: Not Done Med Status: Patient Currently Takes Medications Drug Name: Ala-Wu 1% topical cream Instructions: Apply topically to affected area 2 times a day for 7 days or until rash clears Drug Name: Flagyl 500 mg oral tablet Instructions: 1 tab(s) orally 2 times a day Drug Name: fluconazole 150 mg oral tablet Instructions: 1 tab(s) orally once a day Drug Name: Flagyl 500 mg oral tablet Instructions: 1 tab(s) orally 2 times a day x 7 days Do NOT drink alcohol with this medication SIGNIFICANT EVENTS: No documented data. BOAT PERSON: Is : no(1) Is : no(1) REVIEW OF SYSTEMS REVIEW OF SYSTEMS: Comments All systems reviewed and are negative except as noted or marked RESULTS/VITAL SIGNS EKG INTERPRETATION: Impression: Sinus rhythm at 102 bpm. VT 154. QRS 78. QTc 448. Normal axis. No ST elevations, no acute ischemic changes PHYSICAL EXAM Image Comments: Vital Signs reviewed and noted to be within normal limits. the patient is not hypoxic. General: Alert, no acute distress, patient resting comfortably Skin: warm, intact, no pallor noted Head: Normocephalic, atraumatic Eye: Normal conjunctiva Cardiac: Normal peripheral perfusion Respiratory: No acute distress Musculoskeletal: No deformity, full ROM. Neurological: alert and oriented, normal sensory and motor observed. Psychiatric: Cooperative. Intoxicated. Admits to feeling suicidal earlier, denies current suicidal ideation, homicidal ideation, hallucinations. MEDICAL DECISION MAKING/ED COURSE MDM/ED COURSE: Patient is seen and examined. She is intoxicated initially upon arrival. Patient initially tachycardic, this improved the emergency department. Patient states that she was feeling down, denies any suicidal plans. Is denying current suicidal ideation. Denies homicidal ideations. Psychiatric work-up is initiated. Patient also expresses concern over sexually transmitted infections. States she has been treated for them in the past. Patient also having yellow-green vaginal discharge which she states she gets frequent with bacterial vaginosis. Offered pelvic exam, the patient denies examination. Due to the patient's concerns, will treat with Rocephin and Zithromax. Urine GC chlamydia is ordered. Patient will be started on Flagyl. Alcohol is elevated at 140. Patient is observed and alcohol level is repeated. Alcohol is improved. Patient is clinically sober as well at this time. Patient is evaluated by EPAT. Discussed with the pact counselor, patient is denying current suicidal ideation. Believes this was related to her acute alcohol intoxication. Also believed to be in part caused by the fact that the patient recently relapsed from drinking. Patient has follow-up scheduled with the [facility]. They do believe that the patient is safe for discharge at this time. On reexamination, patient is again denying suicidal and homicidal ideation. Once again offered pelvic examination and the patient declines. Patient will be discharged with prescription for Flagyl. She is given psychiatric referral. Advised to keep her appointment with the [facility]. Patient is strongly encouraged to return to the emergency department with any worsening depression or feelings of suicide in the future. The patient understands and agrees with this plan. Patient is also advised to follow-up with her primary care physician regarding her elevated white blood cell count. No previous lab values are available for comparison. CLINICAL IMPRESSION Diagnosis/Annotation: ED Dx Name:Suicidal ideation Code:R45.851 Name:Alcohol intoxication Code:F10.929 Name:Vomiting Code:R11.10 Name:Leukocytosis Code:D72.829 Name:Bacterial vaginosis Code:N76.0 Name:Concern about STD in female without diagnosis Code:Z71.1 Dispostion: discharged ATTESTATION Comments/Additional Findings: Did you see this patient with a resident ( x ) No ( ) Yes. I personally saw and examined the patient. I have reviewed and agree with the residents findings, including all diagnostic interpretations and treatment plans as written unless documented otherwise in my personal note. I was present for the chester portions of any procedures performed and the inclusive time noted for any critical care statement. CRITICAL CARE TIME Is this a critically ill patient: no Electronic Signatures: Daryl Duncan () (Signed 16-Apr-2020 04:51) Authored: Provider Note - ED v2 Last Updated: 16-Apr-2020 04:51 by Daryl Duncan () References: 1. Data Referenced From Triage - ED 15-Apr-2020 23:57 Normal [facility] RED CELL MORPHOLOGYon 2019 RBC morphology finding Nom (Bld) SEE COMMENT Normal [facility] Comment on above: Result Comment: NO S IGNIFICANT RBC ABNORMALITIES SEEN ON SMEAR REVIEW. Performed By: #### M ORP2 #### [facility] [address] [place] [address] Risk Screen - Adult Emergenc yon 04-16-2020 Risk Screen - Adult Emergency Preferred Language: Preferred Language: Preferred Language for Discussing Health Care (patient/designee)[place] Advanced Directives: Advance Directive/DNRno Family Violence Adult: Abuse Screen: Are you or have you been threatened or abused physically, emotionally, or sexually by anyoneno Learning Assessment (Patient): Learning Assessment (Patient): Patient is Able to be Assessed for Learningyes Factors Influencing Readiness to Learnacuteness of illness Factors that Impact Ability to Learnacuteness of illness Devices/Methods Used to Communicatenone Learning Preferencesverbal instruction Cultural Considerationsnone Developmental Considerationsnone Amish Considerationsnone Learning Assessment (Other Learner): Learning Assessment (Other Learner): Other learner availableno Pressure Injury/TB/Substance: Pressure Injury: Do you have a coughno Admission Risk Screen: Significant IndicatorsComplete CAGE: CAGE: Is this an injured patient at a Trauma Center ([facility]/[place]/ [place]): no Electronic Signatures: Julianna Delacruz (RN) (Signed 16-Apr-2020 00:03) Authored: Preferred Language, Advanced Directives, Family Violence Adult, Learning Assessment (Patient), Learning Assessment (Other Learner), Pressure Injury/TB/Substance, CAGE Last Updated: 16-Apr-2020 00:03 by Julianna Delacruz (RN) Normal [facility] Triage - EDon 04-16-2020 Triage - ED Quick Triage: Are You no Have You Given In The Last 6 Weeksno Are You Currently Breastfeedingno Chart Review: ARRIVAL INFORMATION Mode of Arrival: ambulance Agency Name: [place] CHIEF COMPLAINT ANA FULTON is a Female patient with a chief complaint of suicidal thoughts. Onset of the Complaint: 15-Apr-2020 Triage Date/Time: 15-Apr-2020 23:57 Pain Rating (0-10): 0 = None Vital Signs: Temperature: 98.2F ( 36.8C) taken skin probe Blood Pressure: 115/82 Mean: Heart Rate: 116 Respiratory Rate: 18 Pulse Oximetry: 98% on room air, no respiratory support. Height: 5 feet 6.00 inches. 167.6 CM Weight: 230.3 pounds. Calculated 104.5 kg. (stated) Calculated BMI (kg/m2): 37.202 Calculated BSA (m2) 2.21 Radha Coma Scale: Best Eye Response: (E4) spontaneous Best Motor Response: (M6) obeys commands Best Verbal Response: (V5) oriented Radha Score: 15 Allergies: yes Patient has homicidal thoughts: no LISSET: 2 Symptoms Are POSITIVE For: depression and suicidal thoughts. Risk Screens Suicide Risk Screen In the Past Month: Have you wished you were or wished you could go to sleep and not wake up yes In the Past Month: Have you had any actual thoughts of killing yourself yes In the Past Month: Have you been thinking about how you might do this yes In the Past Month: Have you had these thoughts and had some intention of acting on them yes In the Past Month: Have you started to work out or worked out the details of how to kill yourself Do you intend to carry out this plan no In Your Lifetime: Have you ever done anything, started to do anything, or prepared to do anything to end your life no Suicide Risk Interventions Low Suicide Risk Interventions: behavioral health resources will be given at discharge Moderate Suicide Risk Interventions: Interventions initiated: comfort care provided, items from room which may be used to harm self removed, patient placed in an easily observable room with curtain remaining open, patient placed in gown and wanded, provider notified, remaining risks identified and mitigated, therapeutic diversion offered (puzzles, games, journaling, TV blank box) family/visitor advised to maintain control of own personal belongings in room, frequent rounding with irregular checks at a minimum of every 15 minutes to assess psych safety performed (patient easily observed), hourly behavioral assessment performed, patient placed in psych safe room, personal belongings secured and treatment plan based on risk factors developed High Suicide Risk Interventions: patient under constant observation at all timesicon high Items removed from room: bedside table/carts, cleaning solutions/chemicals, gloves, IV poles, linen bin, loose cords (monitor cords, electric, tubing), otoscope, oxygen/oxygen canister, plastic bags (including trash can bags), suction regulators and sharps container Remaining risks identified and mitigated: bed/stretcher De Oliveira Fall Scale Screening Has the patient fallen before (or is the patient in the ED as a result of a fall) has not had a fall Does the patient have an impaired gait does not have impaired gait Is the patient cognitively impaired not cognitively impaired Interventions: De Oliveira Fall Interventions: LOW INTERVENTIONS: *patient oriented to surroundings and call system, * patient/family falls education completed and documented, *patients fall status communicated during bedside handoff, *whiteboard updated, *mode of toileting discussed with patient, *bed in low position with brakes locked, *call light in reach, * non-skid footwear TRAVEL HISTORY Travel History Coronavirus Screening: no exposure or symptoms PAIN Pain Scale Used: TED Pain Rating (0-10): 0 = None Past Medical History: Past Medical History Reviewedyes Electronic Signatures: Julianna Delacruz (RN) (Signed 16-Apr-2020 00:02) Authored: Triage, Past Medical History Mary Oconnell (RN) (Signed 16-Apr-2020 00:15) Authored: Triage Last Updated: 16-Apr-2020 00:15 by Mary Oconnell (RN) Normal [facility] URINALYSIS WITH CULTURE IF I NDICATEDon 04-16-2020 Appearance (U) HAZY Normal CLEAR [facility] Comment on above: Performed By: #### U ARFX #### [address] [address] Bilirubin (U) [Mass/Vol] Negative Normal NEGATIVE [facility] Comment on above: Performed By: #### U ARFX #### [address] [address] BLOOD Negative Normal NEGATIVE [facility] Comment on above: Performed By: #### U ARFX #### [address] [address] Color (U) YELLOW Normal STRAW,YELL OW [facility] Comment on above: Performed By: #### U ARFX #### [address] [address] Glucose [Mass/Vol] Negative Normal NEGATIVE [facility] Comment on above: Performed By: #### U ARFX #### [address] [address] Ketones Ql (U) Negative Normal NEGATIVE [facility] Comment on above: Performed By: #### U ARFX #### [address] [address] Leukocyte esterase Test strip Ql (U) Negative Normal NEGATIVE [facility] Comment on above: Performed By: #### U ARFX #### [address] [address] Nitrite Ql (U) Negative Normal NEGATIVE [facility] Comment on above: Performed By: #### U ARFX #### [address] [address] pH (Bld) 5.0 Normal 5.0 - 8.0 [facility] Comment on above: Performed By: #### U ARFX #### [address] [address] Protein (U) [Mass/Vol] Negative Normal NEGATIVE [facility] Comment on above: Performed By: #### U ARFX #### [address] [address] Specific gravity (U) [Rel density] 1.005 Normal 1.005 - 1.035 [facility] Comment on above: Performed By: #### U ARFX #### [address] [address] Urobilinogen Qn (U) <2.0 Normal 0.0 - 1.9 [facility] Comment on above: Performed By: #### U ARFX #### [address] [address] ED NOTEon 02-15-2020 ED NOTE HNO ID: [id number] Author: Jamaal (Rn) ARNAUD Hall Service: ? Author Type: Registered Nurse Type: ED Notes Filed: 02/14/2020 10:13 PM Note Text: Discharge instructions reviewed with pt. Pt verbalizes understanding of instructions, medications, follow up care and reasons to return to the emergency department. Pt verbalizes understanding by teach back method and all questions/ concerns answered to the best of my ability. Pt discharged in stable condition. [facility] ED PROV NOTEon 02-14-2020 ED PROV NOTE HNO ID: [id number] Author: Sara Kay(Madhu-C) MADUH Coker Service: Emergency Medicine Author Type: Physician Sash Assembler Type: ED Provider Notes Filed: 02/14/2020 9:38 PM Note Text: ED Provider Note Patient Name: Ana Fulton SERVICE DATE: 02/14/20 History Patient presents with: Knee Pain: L knee pain started this am after playing with son and twisting it last night. +swelling and increased pain with ambulation 39-year-old female here with left knee pain that started last night. States that she was wrestling and playing with her son last night and this morning she woke up and had some left knee discomfort primarily on the inside of the knee. She states she's been having difficulty bearing weight on the knee due to the pain in bending it makes the pain worse. He has been trying Motrin with minimal relief. Denies any numbness tingling or weakness or prior surgeries on the knee before. PAST MEDICAL HISTORY Diagnosis Date - Abnormal glandular Papanicolaou smear of cervix Abn. Pap smear (cervix) - Alcohol abuse - GERD (gastroesophageal reflux disease) 03/02/2012 - Migraine PAST SURGICAL HISTORY Procedure Laterality Date - HYSTEROSCOPY, STERILIZATION 04/03/08 Essure sterilization - LAP CHOLECYSTECT/CHOLANGIOGRA PHY 10/23/13 normal IOC - LEEP PROCEDURE ([employer]ATENT [employer]INGER[employer] EXAMINER DEPT)_*[place] 2004 - REMOVAL OF TONSILS,<12 Y/O Tonsillectomy - TUBAL LIGATION FAMILY HISTORY Problem Relation Age of Onset - Thyroid Mother - Migraines Mother - other (Other) Sister half sister - other (Other) Sister half sister - Heart Maternal Grandmother - other (lung ca) Maternal Grandmother - Cancer Maternal Grandfather LUNG CANCER Social History Tobacco Use - Smoking status: Current Some Day Smoker Packs/day: 1.00 Types: Cigarettes - Smokeless tobacco: Never Used - Tobacco comment: 4 yrs a pack a day Substance and Sexual Activity - Alcohol use: Not Currently Comment: used 2 months ago - Drug use: No - Sexual activity: Yes Partners: Male control/protection: Surgical Comment: Essure Procedure Done ALLERGIES Allergen Reactions - Vicodin [Hydrocodon* Vomiting Review of Systems Constitutional: Negative for chills and fever. Musculoskeletal: Positive for arthralgias. Skin: Negative for wound. Neurological: Negative for weakness and numbness. Physical Exam BP 116/72 Pulse 63 Temp (Src) 98.1 (Oral) Resp 16 Ht 5' 6 (1.68m) Wt 220 lb (99.8kg) SpO2 98% LMP 11/24/2019 BMI 35.53 kg/(m2). O2 Therapy: Room Air Physical Exam Vitals signs and nursing note reviewed. Constitutional: General: She is not in acute distress. Appearance: She is well-developed. She is not diaphoretic. HENT: Head: Normocephalic and atraumatic. Mouth/Throat: Pharynx: No oropharyngeal exudate. Eyes: General: No scleral icterus. Right eye: No discharge. Left eye: No discharge. Conjunctiva/sclera: Conjunctivae normal. Pupils: Pupils are equal, round, and reactive to light. Neck: Musculoskeletal: Normal range of motion and neck supple. Trachea: No tracheal deviation. Cardiovascular: Rate and Rhythm: Normal rate and regular rhythm. Heart sounds: Normal heart sounds. No murmur. Comments: DP 2+ left Pulmonary: Effort: Pulmonary effort is normal. No respiratory distress. Breath sounds: Normal breath sounds. No wheezing. Abdominal: Palpations: Abdomen is soft. There is no mass. Tenderness: There is no abdominal tenderness. Musculoskeletal: Normal range of motion. General: No tenderness. Comments: Range of motion is normal however is difficult secondary to pain. There is no effusion. There is tenderness over the medial joint space. Pain is exacerbated with varus stress. No overlying deformity or cellulitis. Full range of motion of the left hip and of the left ankle. Lymphadenopathy: Cervical: No cervical adenopathy. Skin: General: Skin is warm and dry. Findings: No erythema. Neurological: Mental Status: She is alert and oriented to person, place, and time. Psychiatric: Behavior: Behavior normal. Diagnostic Testing ED Labs Ordered and Reviewed - No data to display Procedures ED Course / Clinical Impression Clinical Impressions as of Feb 13 2137 Injury of left knee, initial encounter Acute pain of left knee MDM / Disposition / Plan 39-year-old female here with left knee pain that started last night. Vitals; stable on arrival Labs; none Imaging; xr knee Medications ketorolac 30 mg injection (TORADOL) (has no administration in time range) acetaminophen 650 mg tab(s) (TYLENOL) (has no administration in time range) X-ray with small suprapatellar effusion. This could be related to soft tissue injury. Patient is able to moderately weight-bear. She was given crutches and a brace for comfort. Orthopedic up with was made prior to discharge. She was encouraged RICE Motrin and Tylenol for pain control. She is okay with this plan, all questions answered. SIGNATURE: NAVI Ochoa) MADHU Coker 02/14/202137 Normal [facility] PROGRESSon 02-14-2020 PROGRESS HNO ID: [id number] Author: Layo (Rt) Patricia Service: Radiology Author Type: Dental Technology Advisor Type: Progress Notes Filed: 02/14/2020 9:21 PM Note Text: Radiology Service Progress Note PATIENT NAME: Ana Fulton DATE OF SERVICE: February 14, 2020 TIME: 9:21 PM PATIENT IDENTITY VERIFICATION COMPLETED USING TWO (2) IDENTIFIERS: Name and Date of confirmed by patient verbally and Name and Date of confirmed by identification band. FALL SCREENING: Has the patient had 2 falls in the last year or 1 fall with injury or currently using an Ambulatory Assistive Device (Walker, Cane, Wheelchair, Crutches, etc.)? No PATIENT GENDER DATA: Female. status: : No status: NO. PATIENT RELEVANT IMPLANT DATA REVIEWED: Not Applicable RADIOLOGY DEPARTMENT: General X-ray: Exam(s) Completed: Lower Extremity X-Ray(s): Knee, AP / LAT Left: PERIPHERAL IV DATA: Not applicable SIGNED BY: RT Iggy February 14, 2020 9:21 PM [facility] XR KNEE 4V AP/LAT/OBLS LTon 02-14-2020 XR KNEE 4V AP/LAT/OBLS LT * * *Final Report* * * DATE OF EXAM: Feb 14 2020 9:19PM VHX [id number] - XR KNEE 4V AP/LAT/OBLS LT / PROCEDURE REASON: Joint pain, knee * * * * Physician Interpretation * * * * HISTORY: Joint pain, knee RESULT: Frontal, lateral, and double oblique views of the left knee. Four images are provided for interpretation. A small suprapatellar effusion is noted. There is minor degenerative narrowing in the medial compartment. No acute fracture or malalignment is identified. IMPRESSION: Small suprapatellar effusion. No acute osseus injury otherwise demonstrated. Adult Daycare Coordinator: PSCB Transcribe Date/Time: Feb 14 2020 9:20P Dictated by : TUTU RODRIGUEZ MD This examination was interpreted and the report reviewed and electronically signed by: TUTU RODRIGUEZ MD on Feb 14 2020 9:22PM EST [id number] [facility] ED NOTEon 11-27-2019 ED NOTE HNO ID: [id number] Author: Janay (Rn) ARNAUD Du Service: ? Author Type: Registered Nurse Type: ED Notes Filed: 11/27/2019 11:59 AM Note Text: SAMMI wrap applied; patient stable for discharge at this time. [facility] ED NOTE HNO ID: [id number] Author: Janay PayneRn) ARNAUD Du Service: ? Author Type: Registered Nurse Type: ED Notes Filed: 11/27/2019 11:58 AM Note Text: Discharge instructions reviewed w/ pt- see AVS; pt up ad scotty, able to dress self and walk w/ steady gait; Pt knows to return to ED w/ worsening s/s. [facility] ED NOTE HNO ID: [id number] Author: Thien PayneRn) ARNAUD Garnett Service: Emergency Medicine Author Type: Registered Nurse Type: ED Notes Filed: 11/27/2019 11:04 AM Note Text: Pt to ED for right foot pain, no known injury, pt ambulatory. Pt states worse when walking on leg. [facility] ED PROV NOTEon 11-27-2019 ED PROV NOTE HNO ID: [id number] Author: Ok Cortez) MADHU Odom Service: Emergency Medicine Author Type: Physician Sash Assembler Type: ED Provider Notes Filed: 11/27/2019 3:49 PM Note Text: ED Provider Note Patient Name: Ana Fulton SERVICE DATE: 11/27/19 History Patient presents with: Pain (foot): right The patient is a 39-year-old female presented to the ED with concern for right foot pain. Rectal pain started yesterday however patient states she went back to work and was walking and started having pain on the right side of the foot worse with ambulation and weightbearing and resolve whenever patient was not weightbearing on the foot as well as was not symptomatic when patient was resting. No specific injury or trauma as well as no fever or chills. No numbness, paresthesia, weakness. No pain in the toes or pain in the ankle or knee. No fever or chills. PAST MEDICAL HISTORY Diagnosis Date - Abnormal glandular Papanicolaou smear of cervix Abn. Pap smear (cervix) - Alcohol abuse - GERD (gastroesophageal reflux disease) 03/02/2012 - Migraine PAST SURGICAL HISTORY Procedure Laterality Date - HYSTEROSCOPY, STERILIZATION 8/28/08 Essure sterilization - LAP CHOLECYSTECT/CHOLANGIOGRA PHY 10/23/13 normal IOC - LEEP PROCEDURE (LATENT [employer]ING[employer] EXAM[employer]ER DEPT)_*[place] 2004 - REMOVAL OF TONSILS,<12 Y/O Tonsillectomy - TUBAL LIGATION FAMILY HISTORY Problem Relation Age of Onset - Thyroid Mother - Migraines Mother - other (Other) Sister half sister - other (Other) Sister half sister - Heart Maternal Grandmother - other (lung ca) Maternal Grandmother - Cancer Maternal Grandfather LUNG CANCER Social History Tobacco Use - Smoking status: Current Some Day Smoker Packs/day: 1.00 Types: Cigarettes - Smokeless tobacco: Never Used - Tobacco comment: 4 yrs a pack a day Substance and Sexual Activity - Alcohol use: Not Currently Comment: used 2 months ago - Drug use: No - Sexual activity: Yes Partners: Male control/protection: Surgical Comment: Essure Procedure Done ALLERGIES Allergen Reactions - Vicodin [Hydrocodon* Vomiting Review of Systems Constitutional: Negative. HENT: Negative. Respiratory: Negative. Cardiovascular: Negative. Gastrointestinal: Negative. Musculoskeletal: Positive for arthralgias and myalgias. Negative for back pain, gait problem, joint swelling, neck pain and neck stiffness. Skin: Negative. Neurological: Negative. All other systems reviewed and are negative. Physical Exam BP 113/72 Pulse 64 Temp (Src) 97.8 (Oral) Resp 17 Wt 215 lb (97.5kg) SpO2 98% LMP 11/24/2019 O2 Therapy: Room Air Physical Exam Vitals signs and nursing note reviewed. Constitutional: General: She is not in acute distress. Appearance: Normal appearance. She is normal weight. She is not ill-appearing, toxic-appearing or diaphoretic. HENT: Head: Normocephalic and atraumatic. Right Ear: Tympanic membrane normal. Left Ear: Tympanic membrane normal. Nose: Nose normal. No congestion or rhinorrhea. Mouth/Throat: Mouth: Mucous membranes are moist. Pharynx: Oropharynx is clear. No oropharyngeal exudate or posterior oropharyngeal erythema. Eyes: Extraocular Movements: Extraocular movements intact. Conjunctiva/sclera: Conjunctivae normal. Pupils: Pupils are equal, round, and reactive to light. Neck: Musculoskeletal: Normal range of motion and neck supple. Cardiovascular: Rate and Rhythm: Normal rate and regular rhythm. Pulses: Normal pulses. Heart sounds: Normal heart sounds. Pulmonary: Effort: Pulmonary effort is normal. Breath sounds: Normal breath sounds. Abdominal: General: Abdomen is flat. Bowel sounds are normal. There is no distension. Palpations: Abdomen is soft. There is no mass. Tenderness: There is no abdominal tenderness. There is no right CVA tenderness, left CVA tenderness, guarding or rebound. Hernia: No hernia is present. Musculoskeletal: Normal range of motion. General: Tenderness present. No swelling, deformity or signs of injury. Right lower leg: No edema. Left lower leg: No edema. Comments: The patient had 5/5 muscle strength bilaterally. Patient distal pulses intact 2+. Capillary refill < 2 seconds. Sensory neuro bilaterally. Neurovascular intact and sensation bilaterally. The patient has TTP over the fifth metatarsal laterally of the right foot without ecchymosis, erythema, rash, or crepitus with movement. The patient was able to ambulate without abnormal gait. No abscesses or massed noted on examination. Skin: General: Skin is warm and dry. Capillary Refill: Capillary refill takes less than 2 seconds. Neurological: General: No focal deficit present. Mental Status: She is alert and oriented to person, place, and time. Mental status is at baseline. Diagnostic Testing ED Labs Ordered and Reviewed - No data to display Procedures ED Course / Clinical Impression Clinical Impressions as of Nov 26 1542 Sprain of right foot, initial encounter MDM / Disposition / Plan The patient is a 39-year-old female presented to the ED with concern for right foot pain. Physical examination revealed tenderness over the fifth metatarsal the right foot laterally with concern for acute osseous injury versus soft tissue sprain. X-ray obtain x-ray revealed calcaneal spur with no acute bony abnormality seen. No acute osseous injury concern at this time with concern for foot sprain. Patient placed in Sammi wrap with neurovascular and sensation intact pre-and post-wrap placement. Patient ambulate with stable gait discharged home, RICE instructed. NSAID's instructed. The patient was informed of the red flag warning signs and instructed on the need to return to the ED for further evaluation if they were to arise by which was understood and agreed. The patient was informed of the diagnosis and informed on the proper and appropriate treatment strategy while in the ED. They were given instruction to follow up with their PCP for further evaluation and treatment and also were given warning on the signs and symptoms necessitating the need to return to the ED for further evaluation and treatment. The patient understood and agreed with the plan and they were discharged. SIGNATURE: NAVI Nelson) MADHU Odom 11/27/19 1549 [facility] PROGRESSon 11-27-2019 PROGRESS HNO ID: [id number] Author: Cailin Laughlin (Rt) Opal Bernal Service: Radiology Author Type: Dental Technology Advisor Type: Progress Notes Filed: 11/27/2019 11:29 AM Note Text: Radiology Service Progress Note PATIENT NAME: Ana Fulton DATE OF SERVICE: November 27, 2019 TIME: 11:28 AM PATIENT IDENTITY VERIFICATION COMPLETED USING TWO (2) IDENTIFIERS: Name and Date of confirmed by patient verbally and Name and Date of confirmed by identification band. PATIENT GENDER DATA: Female. status: : No status: NO. PATIENT RELEVANT IMPLANT DATA REVIEWED: Not Applicable RADIOLOGY DEPARTMENT: General X-ray: Exam(s) Completed: Lower Extremity X-Ray(s): Foot, Right: PERIPHERAL IV DATA: Not applicable SIGNED BY: RT Kemal November 27, 2019 11:28 AM [facility] XR FOOT 3V AP/LAT/OBL RTon 0 11-27-2019 XR FOOT 3V AP/LAT/OBL RT * * *Final Report* * * DATE OF EXAM: Nov 27 2019 11:16AM VHX [id number] - XR FOOT 3V AP/LAT/OBL RT / PROCEDURE REASON: Bone pain, foot * * * * Physician Interpretation * * * * History: Pain FINDINGS: AP, lateral, and oblique views of the right foot have been obtained. The bones are well-mineralized without evidence of fracture or dislocation. Plantar calcaneal spur is noted. No gross soft tissue abnormality is seen. IMPRESSION: Calcaneal spur with no acute bony abnormality seen. Adult Daycare Coordinator: PSCB Transcribe Date/Time: Nov 27 2019 11:30A Dictated by : LULY POWERS MD This examination was interpreted and the report reviewed and electronically signed by: LULY POWERS MD on Nov 27 2019 11:30AM EST [id number] [facility] ED NOTEon 10-27-2019 ED NOTE HNO ID: [id number] Author: Art Burrell) ARNAUD Boucher Service: ? Author Type: Registered Nurse Type: ED Notes Filed: 10/27/2019 10:48 AM Note Text: Patient discharge instructions, medications, and follow up care reviewed and discussed. Patient verbalized understanding with no further questions at discharge. Vital signs stable. [facility] ED NOTE HNO ID: [id number] Author: Art Burrell) ARNAUD Boucher Service: ? Author Type: Registered Nurse Type: ED Notes Filed: 10/27/2019 10:12 AM Note Text: Patient provided urine specimen cup and wipes. Patient instructed on proper clean catch urine specimen process. Patient clean catch urine specimen obtained and sent. [facility] ED NOTE HNO ID: [id number] Author: Tash Burrell) ARNAUD Sherman Service: ? Author Type: Registered Nurse Type: ED Notes Filed: 10/27/2019 9:20 AM Note Text: Patient arrived ambulatory with complaints of nausea and diarrhea for for five days. Complains of abdominal cramping, but states that might just be from my period.. complains of fatigue, no fevers or cough. Respirations unlabored [facility] ED PROV NOTEon 10-27-2019 ED PROV NOTE HNO ID: [id number] Author: Tabitha Feldman (Pa) Service: ? Author Type: Physician Sash Assembler Type: ED Provider Notes Filed: 10/27/2019 10:38 AM Note Text: ED Provider Note Patient Name: Ana Fulton SERVICE DATE: 10/27/19 History Patient presents with: Nausea Diarrhea HPI 39-year-old female presents to the ED for evaluation of generalized abdominal pain and nausea x1 week. Reports multiple episodes of emesis and diarrhea 4-5 days ago. No emesis or diarrhea within the last 2 days. She is menstruating and reports 2/10 lower abdominal cramping in addition to the generalized ache. Denies fever, chills, headache, neck pain/stiffness, chest pain, palpitations, shortness of breath or lightheadedness. Denies urinary symptoms. She has not been to work in 1 week, requesting work note. PAST MEDICAL HISTORY Diagnosis Date - Abnormal glandular Papanicolaou smear of cervix Abn. Pap smear (cervix) - Alcohol abuse - GERD (gastroesophageal reflux disease) 03/02/2012 - Migraine PAST SURGICAL HISTORY Procedure Laterality Date - HYSTEROSCOPY, STERILIZATION 04/03/08 Essure sterilization - LAP CHOLECYSTECT/CHOLANGIOGRA PHY 10/23/13 normal IOC - LEEP PROCEDURE ([employer]ATENT FING[employer] EXAMINER DEPT)_*[place] 2004 - REMOVAL OF TONSILS,<12 Y/O Tonsillectomy - TUBAL LIGATION FAMILY HISTORY Problem Relation Age of Onset - Thyroid Mother - Migraines Mother - other (Other) Sister half sister - other (Other) Sister half sister - Heart Maternal Grandmother - other (lung ca) Maternal Grandmother - Cancer Maternal Grandfather LUNG CANCER Social History Tobacco Use - Smoking status: Current Some Day Smoker Packs/day: 1.00 Types: Cigarettes - Smokeless tobacco: Never Used - Tobacco comment: 4 yrs a pack a day Substance and Sexual Activity - Alcohol use: Not Currently Comment: used 2 months ago - Drug use: No - Sexual activity: Yes Partners: Male control/protection: Surgical Comment: Essure Procedure Done ALLERGIES Allergen Reactions - Vicodin [Hydrocodon* Vomiting Review of Systems Constitutional: Positive for fatigue. Negative for chills, diaphoresis and fever. HENT: Negative for congestion, ear pain, rhinorrhea, sinus pressure, sinus pain and sore throat. Respiratory: Negative for cough, chest tightness and shortness of breath. Cardiovascular: Negative for chest pain and palpitations. Gastrointestinal: Positive for abdominal pain and nausea. Negative for abdominal distention, diarrhea and vomiting. Endocrine: Negative for polydipsia and polyuria. Genitourinary: Positive for vaginal bleeding (menstruating). Negative for flank pain, frequency and hematuria. Musculoskeletal: Positive for myalgias. Negative for neck pain and neck stiffness. Skin: Negative for rash. Allergic/Immunologic: Negative for immunocompromised state. Neurological: Negative for weakness, light-headedness and headaches. Hematological: Does not bruise/bleed easily. Physical Exam BP 105/69 Pulse 61 Temp (Src) 97.9 (Oral) Resp 16 Ht 5' 6 (1.68m) Wt 215 lb (97.5kg) SpO2 99% LMP 10/26/2019 BMI 34.72 kg/(m2). O2 Therapy: Room Air Physical Exam Constitutional: General: She is not in acute distress. Appearance: She is well-developed. She is obese. She is not ill-appearing or diaphoretic. HENT: Mouth/Throat: Mouth: Mucous membranes are moist. Pharynx: No oropharyngeal exudate or posterior oropharyngeal erythema. Neck: Musculoskeletal: Normal range of motion. Cardiovascular: Rate and Rhythm: Normal rate and regular rhythm. Pulses: Normal pulses. Heart sounds: Normal heart sounds. No murmur. No friction rub. No gallop. Comments: HR 65-68. Pulses 2+ and symmetric at radial, pt, dp. Pulmonary: Effort: Pulmonary effort is normal. No respiratory distress. Breath sounds: Normal breath sounds. No wheezing or rales. Comments: Speaking in full sentences. spO2 99% RA. Abdominal: General: There is no distension. Palpations: Abdomen is soft. Tenderness: There is no abdominal tenderness. There is no guarding or rebound. Musculoskeletal: Normal range of motion. Right lower leg: No edema. Left lower leg: No edema. Lymphadenopathy: Cervical: No cervical adenopathy. Skin: General: Skin is warm and dry. Capillary Refill: Capillary refill takes less than 2 seconds. Findings: No rash. Neurological: Motor: No weakness. Gait: Gait normal. Diagnostic Testing ED Labs Ordered and Reviewed UA DIP,URINE (ED-POC) - Abnormal; Notable for the following components: Result Value Ref Range HEMOGLOBIN/BLOOD UA (POCT) Large (*) Negative All other components within normal limits HCG URINE - ED(POC) - Normal UA DIP,URINE (ED-POC) Procedures ED Course / Clinical Impression Clinical Impressions as of Oct 26 1038 Generalized abdominal pain Nausea Myalgias MDM / Disposition / Plan Vital signs were reviewed. Triage records were reviewed. Medical records were reviewed. Nursing notes were reviewed and incorporated. Medications aluminum-magnesium hydroxide-simethicone 200-200-20 mg/5 mL 30 mL (MAALOX,MYLANTA,MAG-AL PLUS) (30 mL ORAL Given 10/27/19 1008) lidocaine viscous 2 % 15 mL (XYLOCAINE) (15 mL ORAL Given 10/27/19 1008) dicyclomine 20 mg tab(s) (BENTYL) (20 mg ORAL Given 10/27/19 1008) acetaminophen 1,000 mg tab(s) (TYLENOL) (1,000 mg ORAL Given 10/27/19 1008) Well-appearing 39-year-old female presents to the ED with recent history of nausea, vomiting, and diarrhea. No fever or chills. She is tolerating PO. Normotensive without tachycardia. Physical exam grossly benign. UA without evidence of dehydration or metabolic dysfunction, gross hemoglobin attributed to menses. The patient does not have urinary symptoms. Urine hCG is negative. Patient's symptoms improved with ED management. At this time the most likely diagnosis is gastroenteritis. Patient discharged home with script for Zofran and Bentyl. PCP follow up in 3 days if symptoms do not improve. DISPOSITION: DISCHARGED: Counseled patient regarding suspected diagnosis AND need for follow-up. Discharged home with verbal and written instructions. They were instructed to return as needed for persistent or worsening symptoms or any new concerns. Case was discussed with Dr. Flores. SIGNATURE: NAVI Lama (Pa) 10/27/19 1038 Normal [facility] GC + CHLAMYDIA BY AMPLIFIED DETECTIONon 10-14-2019 CHLAMYDIA TRACH.,AMPLIFIED Negative Normal NEGATIVE [facility] Comment on above: Performed By: #### U ARFX #### [address] [address] N.GONORRHEA,AMPLIFIED Positive Abnormal NEGATIVE [facility] Comment on above: Performed By: #### U ARFX #### [address] [address] TRICHOMONAS,NUCLEIC ACID DET ECTIONon 10-14-2019 TRICHOMONAS VAGINALIS Negative Normal Negative [facility] Comment on above: Performed By: #### U ARFX #### [address] [address] HCG,URINEon 10-13-2019 Beta HCG ( test) Ql (U) Negative Normal Negative [facility] Comment on above: Performed By: #### H CGU #### [address] [address] Provider Note - ED v2on Provider Note - ED v2 Provider Note - ED v2: Chart Review ED NOTES ED NOTES: Copious green and yellow malodorous vaginal discharge for 2 weeks. Patient has a history of bacterial vaginosis but this is different. She recently found out her ex-boyfriend cheated on her about a month ago. He told her he had Trichomonas. She denies fever or chills. Denies abdominal pain. Denies any other symptoms. HISTORY OF PRESENTING ILLNESS ANA is a 39 year old Female and was seen by me at 13-Oct-2019 17:53 for a chief complaint of STD check (pt would like checked) . The historian is the patient. Triage Information: Most recent Vital Sign Value Date Temp (F): 97.7 10-13-2019 17:53 Temp (C): 36.5 10-13-2019 17:53 Heart Rate (beats/min): 80 10-13-2019 17:53 Respirations (breaths/min): 18 10-13-2019 17:53 SpO2 (%): 97 10-13-2019 17:53 BP Systolic (mm Hg): 122 10-13-2019 17:53 BP Diastolic (mm Hg): 63 10-13-2019 17:53 Presenting Symptoms: vaginal discharge. Patient denies abdominal cramp. Quality is discharge. Context is (Her boyfriend told her he cheated on her, he had Trichomonas.). (2 weeks). Timing is gradual onset and worsening. Modifying factors: There are no modifying factors. Pertinent History: none related to reason for visit. PAST MEDICAL HISTORY ATTESTATION: I have reviewed and confirmed nurse's/medic's notes for patient's medications, allergies, medical history, and surgical history ALLERGIES/INTOLERANCES: Allergy Allergen: Vicon Forte Type: Drug Reaction: Unknown HEALTH HISTORY: No documented data. OUTPATIENT MEDICATIONS: Home Medications Review Status for Reconciliation: N/A Med Status: Patient Currently Takes Medications Drug Name: Flagyl 500 mg oral tablet Instructions: 1 tab(s) orally 2 times a day x 7 days Do NOT drink alcohol with this medication Drug Name: Ala-Wu 1% topical cream Instructions: Apply topically to affected area 2 times a day for 7 days or until rash clears SIGNIFICANT EVENTS: No documented data. BOAT PERSON: Is : no(1) Is : no(1) REVIEW OF SYSTEMS CONSTITUTIONAL: Negative for: anorexia, fever and malaise GASTROINTESTINAL: Negative for: abdominal pain, nausea and vomiting; GENITOURINARY: POSITIVE for: vaginal discharge; Negative for: vaginal bleeding; dyspareunia All other systems reviewed and are negative PHYSICAL EXAM CONSTITUTIONAL: Well appearing, well nourished, awake, alert, oriented to person, place, time/situation and in no apparent distress. Pleasant cooperative female here by herself. HENMT: Head Examination: atraumatic Face: no signs of abnormality EYES: Clear bilaterally, pupils equal, round and reactive to light. RESPIRATORY: Respiratory Distress: no respiratory distress GASTROINTESTINAL: Abdomen soft, non-distended, no rebound, no guarding. Bowel sounds normal in all 4 quadrants. MUSCULOSKELETAL: Spine appears normal, range of motion is not limited, no muscle or joint tenderness. NEUROLOGICAL: Alert and oriented, no focal deficits, no motor or sensory deficits. SKIN: Skin normal color for race, warm, dry and intact. No evidence of trauma. PSYCHIATRIC: Alert and oriented to person, place, time/situation. normal mood and affect. No apparent risk to self or others. RESULTS/VITAL SIGNS VITAL SIGNS: T PRBP SpO2O2(LPM) %FiO2 Method 13-Oct-2019 17:53:[id number] 97 MEDICAL DECISION MAKING/ED COURSE MDM/ED COURSE: Patient relates a history of frequent bouts of bacterial vaginosis. She is usually treated with metronidazole gel. She currently is uninsured and tells me she cannot afford the gel and is requesting by mouth medications. We'll give her a prescription for Flagyl. Will also treat her for potential STDs here in the emergency department so she doesn't have to worry about getting prescriptions filled over the next few days. She is advised to return to the emergency department for worsening symptoms. She is advised to follow-up with a urban designer and will be referred to [facility] and dentistry. Patient was seen and examined in the lab draw room and placed back in the waiting to be seen in room for nursing. CLINICAL IMPRESSION Diagnosis/Annotation: ED Dx Name:Sexually transmitted disease in female Code:A64 Name:Bacterial vaginosis Code:N76.0 Dispostion: discharged Type: home ATTESTATION CRITICAL CARE TIME Is this a critically ill patient: no Electronic Signatures for Addendum Section: Marco Valadez (PAC) (Signed Addendum 13-Oct-2019 19:33) Patient's urinalysis was not a clean catch midstream specimen. Suspect that results are due to contamination. We will wait for cultures to decide upon treatment. Electronic Signatures: Marco Valadez (PAC) (Signed 13-Oct-2019 19:32) Authored: Provider Note - ED v2 Last Updated: 13-Oct-2019 19:33 by Marco Valadez (PAC) References: 1. Data Referenced From Triage - ED 13-Oct-2019 17:53 Normal [facility] Risk Screen - Adult Emergenc yon 10-13-2019 Risk Screen - Adult Emergency Preferred Language: Preferred Language: Preferred Language for Discussing Health Care (patient/designee)[place] Advanced Directives: Advance Directive/DNRno Family Violence Adult: Abuse Screen: Are you or have you been threatened or abused physically, emotionally, or sexually by anyoneno Learning Assessment (Patient): Learning Assessment (Patient): Patient is Able to be Assessed for Learningyes Factors Influencing Readiness to Learnacuteness of illness Factors that Impact Ability to Learnnone Devices/Methods Used to Communicatenone Learning Preferencesindividual instruction Cultural Considerationsnone Developmental Considerationsnone Amish Considerationsnone Learning Assessment (Other Learner): Learning Assessment (Other Learner): Other learner availableno Pressure Injury/TB/Substance: Pressure Injury: Do you have a coughno Admission Risk Screen: Significant IndicatorsComplete CAGE: CAGE: Is this an injured patient at a Trauma Center ([facility] [place]/[place]/ [place]): no Electronic Signatures: Edda Gallardo (ANTHONY) (Signed 13-Oct-2019 19:15) Authored: Preferred Language, Advanced Directives, Family Violence Adult, Learning Assessment (Patient), Learning Assessment (Other Learner), Pressure Injury/TB/Substance, CAGE Last Updated: 13-Oct-2019 19:15 by Edda Gallardo (ANTHONY) Normal [facility] TRICHOMONAS,NUCLEIC ACID DET ECTIONon 10-13-2019 Lab Specimen Source Urine Normal [facility] Comment on above: Performed By: #### U ARFX #### [place] [address] Triage - EDon 10-13-2019 Triage - ED Quick Triage: The patient and/or guardian verbally acknowledges placement for services into the following (when Urgent Care Service hours are operating):emergency department Are You no Have You Given In The Last 6 Weeksno Are You Currently Breastfeedingno Chart Review: CHIEF COMPLAINT ANA FULTON is a Female patient with a chief complaint of STD check (pt would like checked). Triage Date/Time: 13-Oct-2019 17:53 Pain Rating (0-10): 0 = None Vital Signs: Temperature: 97.7F ( 36.5C) taken skin probe Blood Pressure: 122/63 Mean: Heart Rate: 80 Respiratory Rate: 18 Pulse Oximetry: 97% Height: 5 feet 6.00 inches. 167.6 CM Weight: 216.0 pounds. Calculated 98.0 kg. Calculated BMI (kg/m2): 34.888 Calculated BSA (m2) 2.14 Radha Coma Scale: Best Eye Response: (E4) spontaneous Best Motor Response: (M6) obeys commands Best Verbal Response: (V5) oriented B[place]ide Score: 15 Allergies: yes Patient has homicidal thoughts: no LISSET: 4 Risk Screens Suicide Risk Screen In the Past Month: Have you wished you were or wished you could go to sleep and not wake up no In the Past Month: Have you had any actual thoughts of killing yourself no In Your Lifetime: Have you ever done anything, started to do anything, or prepared to do anything to end your life no De Oliveira Fall Scale Screening Has the patient fallen before (or is the patient in the ED as a result of a fall) has not had a fall Does the patient have an impaired gait does not have impaired gait Is the patient cognitively impaired not cognitively impaired Interventions: De Oliveira Fall Interventions: *patient oriented to surroundings and call system, * patient/family falls education completed and documented, *patients fall status communicated during bedside handoff, *whiteboard updated, *mode of toileting discussed with patient, *bed in low position with brakes locked, *call light in reach, * non-skid footwear PAIN Pain Scale Used: TED Pain Rating (0-10): 0 = None ARRIVAL INFORMATION Means of Arrival: Ambulatory Mode of Arrival: private vehicle PRIMARY ASSESSMENT ANA FULTON's primary assessment is Within Defined Limits. The airway is open and patent. Breathing spontaneous and unlabored with clear breath sounds bilaterally. Circulation is normal with good peripheral pulses. Skin is warm and dry and color is normal for race. PAST MEDICAL HISTORY Immunization History: Last Known Tetanus Immunization: Less than 5 years TRAVEL HISTORY Travel Exposure History: NO travel to International locations in the past 30 days Past Medical History: Past Medical History Reviewedyes Electronic Signatures: Coby Chavez (STAFF N) (Signed 13-Oct-2019 17:55) Authored: Triage, Past Medical History Last Updated: 13-Oct-2019 17:55 by Coby Chavez (STAFF N) Normal [facility] UA MICROSCOPICon 10-13-2019 BACTERIA 3+ /HPF Abnormal [facility] Comment on above: Performed By: #### U ARFX #### [address] [address] MUCUS 1+ /LPF Normal [facility] Comment on above: Performed By: #### U ARFX #### [address] [address] RBC 2 /HPF Normal 0-5 [facility] Comment on above: Performed By: #### U ARFX #### [address] [address] SQUAMOUS EPITH. CELLS 14 /HPF Normal [facility] Comment on above: Performed By: #### U ARFX #### [address] [address] WBC 31 /HPF Abnormal 0-5 [facility] Comment on above: Performed By: #### U ARFX #### [address] [address] URINALYSIS WITH CULTURE IF I NDICATEDon 10-13-2019 Appearance (U) HAZY Normal CLEAR [facility] Comment on above: Performed By: #### U ARFX #### [address] [address] Bilirubin (U) [Mass/Vol] Negative Normal NEGATIVE [facility] Comment on above: Performed By: #### U ARFX #### [address] [address] BLOOD Negative Normal NEGATIVE [facility] Comment on above: Performed By: #### U ARFX #### [address] [address] Color (U) YELLOW Normal STRAW,YELL OW [facility] Comment on above: Performed By: #### U ARFX #### [address] [address] Glucose [Mass/Vol] Negative Normal NEGATIVE [facility] [place] Comment on above: Performed By: #### U ARFX #### [address] [address] Ketones Ql (U) Negative Normal NEGATIVE [facility] Comment on above: Performed By: #### U ARFX #### [address] [address] Leukocyte esterase Test strip Ql (U) LARGE (3+) Abnormal NEGATIVE [facility] Comment on above: Performed By: #### U ARFX #### [address] [address] Nitrite Ql (U) Negative Normal NEGATIVE [facility] Comment on above: Performed By: #### U ARFX #### [address] [address] pH (Bld) 5.0 Normal 5.0 - 8.0 [facility] Comment on above: Performed By: #### U ARFX #### [address] [address] Protein (U) [Mass/Vol] Negative Normal NEGATIVE [facility] Comment on above: Performed By: #### U ARFX #### [address] [address] Specific gravity (U) [Rel density] 1.023 Normal 1.005 - 1.035 [facility] Comment on above: Performed By: #### U ARFX #### [address] [address] Urobilinogen Qn (U) <2.0 Normal 0.0 - 1.9 [facility] Comment on above: Performed By: #### U ARFX #### [address] [address] URINE CULTURE,BACTERIALon URINE CULTURE,BACTERIAL PATIENT: ANA FULTON LOCATION: [facility]EL FORD#: [id number] : 84 AGE: SEX: F ORDERED BY: MARCO VALADEZ SOURCE: URINE COLLECTED: 10/13/19 19:44 ANTIBIOTICS AT AMADOR.: RECEIVED : 10/13/19 23:39 SITE: R E S U L T S URINE CULTURE,BACTERIAL FINAL 10/15/19 07:56 NO SIGNIFICANT GROWTH. Normal [facility] Comment on above: Performed By: #### U ARFX #### [address] [address] GC + CHLAMYDIA BY AMPLIFIED DETECTIONon 08-19-2019 CHLAMYDIA TRACH.,AMPLIFIED Negative Normal NEGATIVE [facility] Comment on above: Performed By: #### G CCHA #### [place] [address] N.GONORRHEA,AMPLIFIED Negative Normal NEGATIVE [facility] Comment on above: Performed By: #### G CCHA #### [place] [address] BACTERIAL VAGINOSIS PANELon 08-16-2019 NIMCO SPECIES Not Detected Normal Not Detected [facility] Comment on above: Result Comment: NOT DETECTED BY DNA PROBE Performed By: #### V AG #### [place] [address] GARDNERELLA VAGINALIS DETECTED Abnormal Not Detected [facility] Comment on above: Result Comment: DETE CTED BY DNA PROBE Performed By: #### V AG #### [address] [address] TRICHOMONAS VAGINALIS Not Detected Normal Not Detected [facility] Comment on above: Result Comment: NOT DETECTED BY DNA PROBE Performed By: #### V AG #### [address] [address] Lab Specimen Source Genital vaginal Normal [facility] Comment on above: Performed By: #### V AG #### [place] [address] GC + CHLAMYDIA BY AMPLIFIED DETECTIONon 08-16-2019 Lab Specimen Source Cervix Normal [facility] Comment on above: Performed By: #### G CCHA #### [address] [address] HCG,URINEon 08-16-2019 Beta HCG ( test) Ql (U) Negative Normal Negative [facility] Comment on above: Performed By: #### H CGU #### [address] [address] Provider Note - ED v2on 08-07 Provider Note - ED v2 Provider Note - ED v2: Chart Review: ED NOTES ED NOTES: This 39-year-old female presents to the emergency department today with concerns of vaginal discharge, odor and irritation. Patient states history of bacterial vaginosis, also mentions concern for STD as well. She denies pain, abdominal pain or pelvic pain, urinary symptoms, fevers or chills. HISTORY OF PRESENTING ILLNESS ANA is a 39 year old Female and was seen by me at 16-Aug-2019 15:34 for a chief complaint of vaginal complaint(s) (PT STATES SHE HAS HAD VAGINAL ODOR AND DISCHARGE X2 DAYS.)(1). Triage Information: Most recent Vital Sign Value Date Temp (F): 97.8 08-16-2019 15:31 Temp (C): 36.6 08-16-2019 15:31 Heart Rate (beats/min): 79 08-16-2019 15:31 Respirations (breaths/min): 16 08-16-2019 15:31 SpO2 (%): 99 08-16-2019 15:31 BP Systolic (mm Hg): 133 08-16-2019 15:31 BP Diastolic (mm Hg): 81 08-16-2019 15:31 PAST MEDICAL HISTORY ATTESTATION: I have reviewed and confirmed nurse's/medic's notes for patient's medications, allergies, medical history, and surgical history ALLERGIES/INTOLERANCES: No Known Allergies HEALTH HISTORY: No documented data. OUTPATIENT MEDICATIONS: Home Medications Review Status for Reconciliation: Not Done Med Status: Patient Currently Takes Medications Drug Name: Flagyl 500 mg oral tablet Instructions: 1 tab(s) orally 2 times a day x 7 days Do NOT drink alcohol with this medication Drug Name: Ala-Wu 1% topical cream Instructions: Apply topically to affected area 2 times a day for 7 days or until rash clears SIGNIFICANT EVENTS: No documented data. BOAT PERSON: Is : no(1) Is : no(1) RESULTS/VITAL SIGNS RESULTS: Recent Lab Results: I have reviewed these laboratory results: Urine Test 16-Aug-2019 16:09:00 ResultValue HCG, Urine NEGATIVE Urinalysis with Reflex to Culture 16-Aug-2019 16:09:00 ResultValue Color, Urine YELLOW Reference Range: STRAW,YELLOW Appearance, Urine CLEAR Specific Chauvin, Urine 1.024 pH, Urine 6.0 Protein, Urine NEGATIVE Glucose, Urine NEGATIVE Blood, Urine NEGATIVE Ketones, Urine NEGATIVE Bilirubin, Urine NEGATIVE Urobilinogen, Urine <2.0 Nitrite, Urine NEGATIVE Leukocyte Esterase, Urine NEGATIVE VITAL SIGNS: T PRBP SpO2O2(LPM) %FiO2 Method 16-Aug-2019 16:51:[id number] 99 16-Aug-2019 15:31:[id number]/81 99 MEDICAL DECISION MAKING/ED COURSE MDM/ED COURSE: Review of Systems: Gen.: No weight loss, fatigue, anorexia, insomnia, fever, headache. EENT: No blurry/double vision, eye pain, ear pain or tinnitus, throat pain, nasal congestion. Cardiac: No chest pain, palpitations, diaphoresis. Pulmonary: No shortness of breath, cough, wheezing or difficulty breathing. GI: No abdominal pain, nausea, vomiting, diarrhea, constipation. : No dysuria, hematuria, flank pain. Positive vaginal discharge with irritation and odor. Musculoskeletal: No neck pain, back pain, decreased ROM, swelling, deformity. Skin: No rash, itching, bruising, abrasion, lesion. Psych: No depression, anxiety, suicidality, homicidality. Review of systems is otherwise negative unless stated above or in history of present illness. Physical exam: General: Vitals noted, no distress. Afebrile. EENT: TMs clear. Eyes unremarkable. Posterior oropharynx unremarkable. Cardiac: Regular rate and rhythm, no murmur, no gallop Pulmonary: Lungs clear bilaterally with good aeration. No adventitious breath sounds. Abdomen: Soft, nontender, nonsurgical. No peritoneal signs. Normoactive bowel sounds Pelvic Exam: Speculum exam shows no bleeding, ulcerations, lesions. Mild amount of discharge noted in the vaginal vault. Bimanual exam shows no adnexal pain or mass. No cervical motion tenderness. Extremities: No peripheral edema. Negative Homans bilaterally, no cords. Skin: No rash. Neuro: No focal neurologic deficits, NIH score of 0. Given patients concerns about STDs and previous history of bacterial vaginosis and complaints today she was provided Rocephin and Zithromax in the department and discharged home with Flagyl. Patient advised to follow up with BOAT PERSON regarding test results today. Discussed Findings with: patient Data Reviewed: vital signs Conducted Detailed Discussion with Patient and/or Guardian Regarding: lab results, need for outpatient follow-up and return to ED if symptoms worsen, persist or questions arise CLINICAL IMPRESSION Diagnosis/Annotation: ED Dx Name:Vaginitis Code:N76.0 Dispostion: discharged Type: home ATTESTATION CRITICAL CARE TIME Is this a critically ill patient: no Electronic Signatures: Corrie De La Rosa (PROFESSIONAL HEALTHCARE REPRESENTATIVE-[facility]) (Signed 16-Aug-2019 18:13) Authored: Provider Note - ED v2 Last Updated: 16-Aug-2019 18:13 by Corrie De La Rosa (PROFESSIONAL HEALTHCARE REPRESENTATIVE-[facility]) References: 1. Data Referenced From Triage - ED 16-Aug-2019 15:31 Normal [facility] URINALYSIS WITH REFLEX TO CU LTUREon 08-16-2019 Appearance (U) CLEAR Normal CLEAR [facility] Comment on above: Performed By: #### U ARFX #### [address] [address] Bilirubin (U) [Mass/Vol] Negative Normal NEGATIVE [facility] Comment on above: Performed By: #### U ARFX #### [address] [address] BLOOD Negative Normal NEGATIVE [facility] Comment on above: Performed By: #### U ARFX #### [address] [address] Color (U) YELLOW Normal STRAW,YELL OW [facility] Comment on above: Performed By: #### U ARFX #### [address] [address] Glucose [Mass/Vol] Negative Normal NEGATIVE [facility] [place] Comment on above: Performed By: #### U ARFX #### [address] [address] Ketones Ql (U) Negative Normal NEGATIVE [facility] Comment on above: Performed By: #### U ARFX #### [address] [address] Leukocyte esterase Test strip Ql (U) Negative Normal NEGATIVE [facility] Comment on above: Performed By: #### U ARFX #### [address] [address] Nitrite Ql (U) Negative Normal NEGATIVE [facility] Comment on above: Performed By: #### U ARFX #### [address] [address] pH (Bld) 6.0 Normal 5.0 - 8.0 [facility] Comment on above: Performed By: #### U ARFX #### [address] [address] Protein (U) [Mass/Vol] Negative Normal NEGATIVE [facility] Comment on above: Performed By: #### U ARFX #### [address] [address] Specific gravity (U) [Rel density] 1.024 Normal 1.005 - 1.035 [facility] Comment on above: Performed By: #### U ARFX #### [address] [address] Urobilinogen Qn (U) <2.0 Normal 0.0 - 1.9 [facility] Comment on above: Performed By: #### U ARFX #### [address] [address] ED NOTEon 04-08-2019 INR Coag (Bld) [Relative time] HNO ID: [id number] Author: Justin Elizalde (Rn) ARNAUD Lee Service: ? Author Type: Registered Nurse Type: ED Notes Filed: 04/08/2019 10:01 AM Note Text: Pt. given discharge instructions regarding medications, when to return to the ED and follow up with primary care physician. Pt. States understanding of instructions. [facility] INR Coag (Bld) [Relative time] HNO ID: [id number] Author: Justin PayneRn) ARNAUD Lee Service: ? Author Type: Registered Nurse Type: ED Notes Filed: 04/08/2019 8:11 AM Note Text: Assessment. Pt complaining symptoms of low back pain. Pt states started yesterday without injury to right lower side. Pt stated positional pain during motion, denies blood in urine. Pt denies NV, FC, , GI, SOB, CP, Cough. Pt presents AOx3, warm dry skin, no signs of respiratory distress, no signs of trauma to back, pain on palpation to right lumbar. Pt has no other complaints at this time. [facility] ED PROV NOTEon 04-08-2019 ED PROV NOTE HNO ID: [id number] Author: Stanley Mensah MD Service: Emergency Medicine Author Type: Physician Type: ED Provider Notes Filed: 04/08/2019 3:58 PM Note Text: ED Provider Note Patient Name: Ana Fulton SERVICE DATE: 04/08/19 History Patient presents with: Low Back Pain: right Her with low back pain, right sided. No radiation. No injury. No incontinence. Much worse with any bending or twisting. Had Essure.No UTI symptoms. Cannot recall any overuse/injury. PAST MEDICAL HISTORY Diagnosis Date - Abnormal glandular Papanicolaou smear of cervix Abn. Pap smear (cervix) - Alcohol abuse - GERD (gastroesophageal reflux disease) 03/02/2012 - Migraine PAST SURGICAL HISTORY Procedure Laterality Date - HYSTEROSCOPY, STERILIZATION 04/03/08 Essure sterilization - LAP CHOLECYSTECT/CHOLANGIOGRA PHY 10/23/13 normal IOC - LEEP PROCEDURE ([employer] DEPT)_*[place] 2004 - REMOVAL OF TONSILS,<12 Y/O Tonsillectomy - TUBAL LIGATION FAMILY HISTORY Problem Relation Age of Onset - Thyroid Mother - Migraines Mother - other (Other) Sister half sister - other (Other) Sister half sister - Heart Maternal Grandmother - other (lung ca) Maternal Grandmother - Cancer Maternal Grandfather LUNG CANCER Social History Tobacco Use - Smoking status: Current Some Day Smoker Packs/day: 1.00 Types: Cigarettes - Smokeless tobacco: Never Used - Tobacco comment: 4 yrs a pack a day Substance and Sexual Activity - Alcohol use: Not Currently Comment: used 2 months ago - Drug use: No - Sexual activity: Yes Partners: Male control/protection: Surgical Comment: Essure Procedure Done ALLERGIES Allergen Reactions - Vicodin [Hydrocodon* Vomiting Review of Systems Constitutional: Negative for fever. HENT: Negative for nosebleeds. Eyes: Negative for visual disturbance. Respiratory: Negative for shortness of breath. Cardiovascular: Negative for chest pain. Gastrointestinal: Negative for diarrhea and vomiting. Genitourinary: Negative for difficulty urinating. Musculoskeletal: Positive for back pain and gait problem. Skin: Negative for rash. Allergic/Immunologic: Negative for immunocompromised state. Neurological: Negative for numbness. Hematological: Does not bruise/bleed easily. Physical Exam BP 125/85 Pulse 87 Temp (Src) 97.4 (Oral) Resp 18 Wt 219 lb (99.3kg) SpO2 99% LMP 03/25/2019 Physical Exam Constitutional: She is oriented to person, place, and time. She appears well-developed and well-nourished. She appears distressed. HENT: Head: Normocephalic and atraumatic. Eyes: EOM are normal. Right eye exhibits no discharge. Left eye exhibits no discharge. No scleral icterus. Neck: Neck supple. Pulmonary/Chest: Effort normal. No respiratory distress. Abdominal: Soft. There is no tenderness. There is no guarding. Musculoskeletal: Normal range of motion. She exhibits no edema or deformity. Patient had diffuse tenderness across mid/lower lumbar area. Unable to move. Coughing is very painful. Eventually could ambulate but still quite uncomfortable. Neurological: She is alert and oriented to person, place, and time. She displays normal reflexes. No cranial nerve deficit or sensory deficit. She exhibits normal muscle tone. Skin: Skin is warm and dry. No rash noted. She is not diaphoretic. Psychiatric: She has a normal mood and affect. Nursing note and vitals reviewed. Diagnostic Testing ED Labs Ordered and Reviewed - No data to display Procedures ED Course / Clinical Impression Clinical Impressions as of Apr 08 1555 Strain of lumbar paraspinous muscle, initial encounter MDM / Disposition / Plan Patient feeling moderately better with flexeril and toradol. Sent home with flexeril and nsaids. Also given a lidoderm prescription. The patient was DISCHARGED: Counseled patient regarding lab results AND radiology results AND suspected diagnosis AND need for follow-up. Discharged home with verbal and written instructions. They were instructed to return as needed for persistent or worsening symptoms or any new concerns. Condition at time of disposition: improved and stable SIGNATURE: MD Stanley Gary MD 04/08/19 1558 [facility] PROGRESSon 04-08-2019 PROGRESS HNO ID: [id number] Author: Andrae Augustine (Rt) Manav FITZGERALD Service: Radiology Author Type: Dental Technology Advisor Type: Progress Notes Filed: 04/08/2019 8:36 AM Note Text: Radiology Service Progress Note PATIENT NAME: Ana Fulton DATE OF SERVICE: April 08, 2019 TIME: 8:36 AM PATIENT IDENTITY VERIFICATION COMPLETED USING TWO (2) METHODS: Name and Date of confirmed by patient verbally and Name and Date of confirmed by identification band. PATIENT GENDER DATA: Female. status: : No status: NO. PATIENT RELEVANT IMPLANT DATA REVIEWED: Not Applicable RADIOLOGY DEPARTMENT: General X-ray: Exam(s) Completed: Spine X-Ray(s): Lumbar AP / LAT / L5-S1 PERIPHERAL IV DATA: Not applicable SIGNED BY: Andrae Em II, RT April 08, 2019 8:36 AM [facility] XR LUMBAR 3V AP/LAT/L5-S1on 04-08-2019 XR LUMBAR 3V AP/LAT/L5-S1 * * *Final Report* * * DATE OF EXAM: Apr 08 2019 8:36AM [id number] - XR LUMBAR 3V AP/LAT/L5-S1 / PROCEDURE REASON: Back pain, < 6wks, no red flags, no prior management * * * * Physician Interpretation * * * * History: Back pain FINDINGS: AP, lateral, and coned-down lateral views of the lumbar spine have been obtained. The bones are well-mineralized without evidence of fracture or subluxation. Vertebral and intervertebral disc space heights are maintained. There is minimal marginal spurring of the L2-L4 vertebrae. No gross soft tissue abnormality is seen. Segmental wires are seen within the pelvis, likely related to ESSURE procedure. IMPRESSION: No acute process is seen. Adult Daycare Coordinator: PSCB Transcribe Date/Time: Apr 08 2019 9:04A Dictated by : LULY POWERS MD This examination was interpreted and the report reviewed and electronically signed by: LULY POWERS MD on Apr 08 2019 9:07AM EST [id number] [facility] GC + CHLAMYDIA BY AMPLIFIED DETECTIONon 04-03-2019 CHLAMYDIA TRACH.,AMPLIFIED Negative Normal NEGATIVE [facility] Comment on above: Performed By: #### [facility] #### [facility] [address] [place] [address] N.GONORRHEA,AMPLIFIED Negative Normal NEGATIVE [facility] Comment on above: Performed By: #### G CCHA #### [facility] [address] [place] [address] TRICHOMONAS,NUCLEIC ACID DET ECTIONon 04-03-2019 TRICHOMONAS VAGINALIS Negative Normal Negative [facility] Comment on above: Performed By: #### T AME #### [facility] [address] [place], [place] GC + CHLAMYDIA BY AMPLIFIED DETECTIONon 04-02-2019 Lab Specimen Source Genital vaginal Normal [facility] Comment on above: Performed By: #### G CCHA #### [place] [address] [place] [address] HCG,URINEon 04-02-2019 Beta HCG ( test) Ql (U) Negative Normal Negative [facility] Comment on above: Performed By: #### H CGU #### [facility] [address] [facility] [address] [place], [place] [id number] Provider Note - ED v2on 03-08 Provider Note - ED v2 Provider Note - ED v2: Chart Review: ED NOTES ED NOTES: 38-year-old female had sexual relations with a male who said that he had chlamydia not she is concerned she wants to be checked. No other associated signs or symptoms or modifying factors she has a slight discharge she has some odor and she is concerned about bacterial vaginosis. Past medical and surgical history negative. Social history she social history she doesn't smoke or drink in excess Remainder review systems is negative Pupils are PERRL pharynx not injected no adenopathy no JVD or bruits neck is supple no meningismus lungs are clear without rhonchi wheezes or rales cardiac exam without gallop or murmur abdomen soft nontender bowel sounds normoactive no rebound or guarding soft tissue and joints otherwise unremarkable skin there is no rash cranial nerves intact without deficit upper and lower extremity motor sensory reflex examination is normal pelvic exam is fairly benign is not much discharge HISTORY OF PRESENTING ILLNESS ANA is a 38 year old Female and was seen by me at 02-Apr-2019 17:05 for a chief complaint of STD check . Other complaints include: pt states her boyfriend called her today and told her he had clamydia. pt states she had unprotected sex with him and wants to be checked for SD's. pt denies any symptoms at this time. . Triage Information: Most recent Vital Sign Value Date Temp (F): 98.2 04-02-2019 17:08 Temp (C): 36.7 04-02-2019 17:08 Heart Rate (beats/min): 84 04-02-2019 17:08 Respirations (breaths/min): 16 04-02-2019 17:08 SpO2 (%): 100 04-02-2019 17:08 BP Systolic (mm Hg): 115 04-02-2019 17:08 BP Diastolic (mm Hg): 79 04-02-2019 17:08 PAST MEDICAL HISTORY ATTESTATION: I have reviewed and confirmed nurse's/medic's notes for patient's medications, allergies, medical history, and surgical history ALLERGIES/INTOLERANCES: No Known Allergies HEALTH HISTORY: No documented data. OUTPATIENT MEDICATIONS: Home Medications Review Status for Reconciliation: N/A Med Status: N/A No documented data. SIGNIFICANT EVENTS: No documented data. BOAT PERSON: Is : no(1) Is : no(1) MEDICAL DECISION MAKING/ED COURSE MDM/ED COURSE: Labs and wet prep were negative is not much discharge patient treated with Rocephin 250 mg IM and Zithromax 1 g advised to follow-up with the STD clinic regarding the culture results CLINICAL IMPRESSION Dispostion: discharged Type: home ATTESTATION CRITICAL CARE TIME Is this a critically ill patient: no Electronic Signatures: Chris Velasco) (Signed 04-Apr-2019 12:39) Authored: Provider Note - ED v2 Last Updated: 04-Apr-2019 12:39 by Chris Velasco) References: 1. Data Referenced From Triage - ED 02-Apr-2019 17:08 Normal [facility] Risk Screen - Adult Emergenc yon 04-02-2019 Risk Screen - Adult Emergency Preferred Language: Preferred Language: Preferred Language for Discussing Health Care (patient/designee)[place] Advanced Directives: Advance Directive/DNRno Family Violence Adult: Abuse Screen: Are you or have you been threatened or abused physically, emotionally, or sexually by anyoneno Learning Assessment (Patient): Learning Assessment (Patient): Patient is Able to be Assessed for Learningyes Factors Influencing Readiness to Learnacuteness of illness Factors that Impact Ability to Learnnone Devices/Methods Used to Communicatenone Learning Preferencesaudio Cultural Considerationsnone Developmental Considerationsnone Amish Considerationsnone Learning Assessment (Other Learner): Learning Assessment (Other Learner): Other learner availableno Pressure Injury/TB/Substance: Pressure Injury: Pressure Injury Present on Admissionno Do you have a coughno Admission Risk Screen: Significant IndicatorsComplete CAGE: CAGE: Is this an injured patient at a Trauma Center ([facility]/[place]/ [place]): no Electronic Signatures: Caty Nina (RN) (Signed 02-Apr-2019 17:37) Authored: Preferred Language, Advanced Directives, Family Violence Adult, Learning Assessment (Patient), Learning Assessment (Other Learner), Pressure Injury/TB/Substance, CAGE Last Updated: 02-Apr-2019 17:37 by Caty Nina (RN) Normal [facility] Triage - EDon 04-02-2019 Triage - ED Quick Triage: Are You no Are You Currently Breastfeedingno Chart Review: CHIEF COMPLAINT ANA RACHEL is a Female patient with a chief complaint of STD check. Other Complaints: pt states her boyfriend called her today and told her he had clamydia. pt states she had unprotected sex with him and wants to be checked for SD's. pt denies any symptoms at this time. Triage Date/Time: 02-Apr-2019 17:09 Vital Signs: Temperature: 98.2F ( 36.7C) Blood Pressure: 115/79 Mean: Heart Rate: 84 Respiratory Rate: 16 Pulse Oximetry: 100% on room air, no respiratory support. Height: 5 feet 6.00 inches. 167.6 CM Weight: 219.0 pounds. Calculated 99.3 kg. (stated) Calculated BMI (kg/m2): 35.350 Calculated BSA (m2) 2.15 [place] Coma Scale: Best Eye Response: (E4) spontaneous Best Motor Response: (M6) obeys commands Best Verbal Response: (V5) oriented [place] Score: 15 Patient has homicidal thoughts: no LISSET: 4 Risk Screens Suicide Risk Screen In the Past Month: Have you wished you were or wished you could go to sleep and not wake up no In the Past Month: Have you had any actual thoughts of killing yourself no In Your Lifetime: Have you ever done anything, started to do anything, or prepared to do anything to end your life no De Oliveira Fall Scale Screening Has the patient fallen before (or is the patient in the ED as a result of a fall) has not had a fall Does the patient have an impaired gait does not have impaired gait Is the patient cognitively impaired not cognitively impaired PAIN Pain Scale Used: TED Past Medical History: Past Medical History Reviewedyes Electronic Signatures: Caty Nina (RN) (Signed 02-Apr-2019 17:11) Authored: Triage, Past Medical History Last Updated: 02-Apr-2019 17:11 by Caty Nina (RN) Normal [facility] WET PREP W/ TRICHOMONAS REFL EX IF NEGon 04-02-2019 CLUE CELLS NONE SEEN Normal [facility] Comment on above: Performed By: #### W ETPX #### [facility] [address] [place] [phone] COMMENT SEE COMMENT Normal [facility] Comment on above: Result Comment: TRIC HOMONAS WAS NOT SEEN BY WET PREP REFLEXED TO TRICHOMONAS VAGINALIS BY AMPLIFIED DETECTION. Performed By: #### W ETPX #### [facility] [address] [place] [phone] TRICHOMONAS NONE SEEN Normal Negative [facility] Comment on above: Performed By: #### W ETPX #### [facility] [address] [place], [place] [id number] WBC (Bld) [#/Vol] 1-2 Normal [facility] Comment on above: Performed By: #### W ETPX #### [facility] [address] [place] [phone] Yeast LM Ql (Urine sed) NONE SEEN Normal [facility] Comment on above: Performed By: #### W ETPX #### [facility] [place], [place] [id number] Lab Specimen Source Genital vaginal Normal [facility] Comment on above: Performed By: #### W ETPX #### [address] [place] [phone] Performed By: #### T AME #### [facility] [address] [place] [address] ALLIED HEALTHon 03-28-2019 ALLIED HEALTH HNO ID: [id number] Author: Opal Sanderson (Rt) Service: ? Author Type: Dental Technology Advisor Type: Allied Health Filed: 03/28/2019 5:32 PM Note Text: Radiology Service Progress Note PATIENT NAME: Ana Fulton DATE OF SERVICE: March 28, 2019 TIME: 5:23 PM PATIENT IDENTITY VERIFICATION COMPLETED USING TWO (2) METHODS: Name and Date of confirmed by patient verbally and Name and Date of confirmed by identification band. PATIENT GENDER DATA: Female. status: : No status: N/A PATIENT RELEVANT IMPLANT DATA REVIEWED: Yes RADIOLOGY DEPARTMENT: MR; Exam(s) Completed: Head: Routine Brain PERIPHERAL IV DATA: Not applicable SIGNED BY: RT Maria E/RT Saritha March 28, 2019 5:23 PM [facility] MRI BRAIN WO IVCONon 019 MRI BRAIN WO IVCON * * *Final Report* * * DATE OF EXAM: Mar 28 2019 5:33PM [facility] 0294 - MRI BRAIN WO IVCON / PROCEDURE REASON: Intractable headache, unspecified chronicity pattern, unspecified headache type * * * * Physician Interpretation * * * * EXAMINATION: MRI BRAIN WO IVCON CLINICAL HISTORY: Intractable headache, unspecified chronicity pattern, unspecified headache type Frontal headaches x1 month. TECHNIQUE: Routine noncontrast MRI protocol including diffusion images. MQ: [id number] COMPARISON: None. RESULT: Acute Change: There is no evidence of restricted diffusion to suggest an acute infarct. Hemorrhage: No evidence of prior parenchymal hemorrhage on the gradient echo images. Mass Lesion/ Mass Effect: No evidence of an intracranial mass or extra-axial fluid collection. No significant mass effect. Chronic Change: The white matter is within normal limits of signal intensity for age. Parenchyma: No significant volume loss for age. The brain parenchyma is otherwise within normal limits of signal intensity and morphology. Ventricles: Normal caliber and morphology. Skull Base: Hypothalamic and pituitary region are grossly normal. Craniocervical junction is normal. No significant marrow replacement process. Vasculature: Major intracranial arterial structures, and dural venous sinuses show typical flow void, suggesting patency by spin echo criteria. Other: The visualized paranasal sinuses and mastoid air cells are clear. The orbits and extracranial soft tissues are unremarkable. IMPRESSION: Normal MR appearance of the brain. No evidence of acute intracranial process or mass effect. Clear paranasal sinuses. Adult Daycare Coordinator: PSCB Transcribe Date/Time: Mar 28 2019 7:57P Dictated by : ADRI TY MD This examination was interpreted and the report reviewed and electronically signed by: ADRI TY MD on Mar 28 2019 8:00PM EST [id number] Normal [facility] Vital Signs Date Time Vital Sign Value Performing Clinician Facility 04-09-2025 11:03-0400 Body height 167.64 cm Marco MILESCNP Work Phone: [facility] 04-09-2025 11:03-0400 Body mass index (BMI) [Ratio] 24.37 kg/m2 Marco MILESCNP Work Phone: [facility] 04-09-2025 11:03-0400 Body weight 68.49 kg Marco MILESCNP Work Phone: [facility] 04-09-2025 11:03-0400 Diastolic blood pressure 84 mm[Hg] Marco Jacques WHCNP Work Phone: [facility] 04-09-2025 11:03-0400 Heart rate 89 /min Marco MILESCNP Work Phone: [facility] 04-09-2025 11:03-0400 Respiratory rate 16 /min Marco MILESCNP Work Phone: [facility] 04-09-2025 11:03-0400 SaO2% (BldA) [Mass fraction] 98 % Marco Rice WHCNP Work Phone: [facility] 04-09-2025 11:03-0400 Systolic blood pressure 126 mm[Hg] Marco Jacques WHCNP Work Phone: [facility] 03-31-2025 13:12-0400 Body height 167.64 cm Hadley Kanani DMD Work Phone: [facility] 03-31-2025 13:12-0400 Body mass index (BMI) [Ratio] 24.37 kg/m2 Hadley Kanani DMD Work Phone: [facility] 03-31-2025 13:12-0400 Body temperature 98.6 [degF] Hadley Kanani DMD Work Phone: [facility] 03-31-2025 13:12-0400 Body weight 68.49 kg Hadley Kanani DMD Work Phone: [facility] 03-31-2025 13:12-0400 Diastolic blood pressure 72 mm[Hg] Hadley Kanani DMD Work Phone: [facility] 03-31-2025 13:12-0400 Heart rate 91 /min Hadley Kanani DMD Work Phone: [facility] 03-31-2025 13:12-0400 Systolic blood pressure 106 mm[Hg] Hadley Kanani DMD Work Phone: [facility] 03-24-2025 11:53-0400 Body temperature 98.01 [degF] Hadley Kanani DMD Work Phone: [facility] 03-24-2025 11:53-0400 Diastolic blood pressure 80 mm[Hg] Hadley Kanani DMD Work Phone: [facility] 03-24-2025 11:53-0400 Systolic blood pressure 98 mm[Hg] Hadley Kanani DMD Work Phone: [facility] 03-17-2025 15:20-0400 Body temperature 98.01 [degF] Hadley Quiroga DMD Work Phone: [facility] 03-17-2025 15:20-0400 Diastolic blood pressure 63 mm[Hg] Hadley Quiroga DMD Work Phone: [facility] 03-17-2025 15:20-0400 Heart rate 102 /min Hadley Quiroga DMD Work Phone: [facility] 03-17-2025 15:20-0400 Systolic blood pressure 95 mm[Hg] Hadley Quiroga DMD Work Phone: [facility] 03-14-2025 15:02-0400 Body height 167.64 cm Ruddy Frey LCSW-C Work Phone: [facility] 03-14-2025 15:02-0400 Body mass index (BMI) [Ratio] 26.47 kg/m2 Ruddy Frey LCSW-C Work Phone: [facility] 03-14-2025 15:02-0400 Body temperature 96.8 [degF] Ruddy Frey LCSW-C Work Phone: [facility] 03-14-2025 15:02-0400 Body weight 74.39 kg Ruddy Frey LCSW-C Work Phone: [facility] 03-14-2025 15:02-0400 Diastolic blood pressure 72 mm[Hg] Ruddy Frey LCSW-C Work Phone: [facility] 03-14-2025 15:02-0400 Heart rate 88 /min Ruddy Frey LCSW-C Work Phone: [facility] 03-14-2025 15:02-0400 Inhaled oxygen concentration 21 % Ruddy Frey LCSW-C Work Phone: [facility] 03-14-2025 15:02-0400 Respiratory rate 16 /min Ruddy Frey LCSW-C Work Phone: [facility] 03-14-2025 15:02-0400 SaO2% (BldA) [Mass fraction] 97 % Ruddy Frey LCSW-C Work Phone: [facility] 03-14-2025 15:02-0400 Systolic blood pressure 106 mm[Hg] Ruddy Frey LCSW-C Work Phone: [facility] 03-09-2025 01:20-0400 Diastolic blood pressure 66 mm[Hg] [facility] Work Phone: [facility] 03-09-2025 01:20-0400 Heart rate 81 /min [facility] Work Phone: [facility] 03-09-2025 01:20-0400 Respiratory rate 20 /min [facility] Work Phone: [facility] 03-09-2025 01:20-0400 SaO2% (BldA) [Mass fraction] 99 % [facility] Work Phone: [facility] 03-09-2025 01:20-0400 Systolic blood pressure 97 mm[Hg] [facility] Work Phone: [facility] 03-08-2025 19:04-0400 Body height 167.64 cm [facility] Work Phone: [facility] 03-08-2025 19:04-0400 Body temperature 98 [degF] [facility] Work Phone: [facility] 03-08-2025 19:04-0400 Body weight 75 kg [facility] Work Phone: [facility] 03-06-2025 13:25-0400 Body temperature 98.2 [degF] Daisy Clancy DDS Work Phone: [facility] 03-06-2025 13:25-0400 Diastolic blood pressure 76 mm[Hg] Daisy Clancy DDS Work Phone: [facility] 03-06-2025 13:25-0400 Heart rate 84 /min Daisy Clancy DDS Work Phone: [facility] 03-06-2025 13:25-0400 Systolic blood pressure 110 mm[Hg] Daisy Clancy DDS Work Phone: [facility] 03-06-2025 09:42-0400 Body height 167.64 cm Ruddy Frey LCSW-C Work Phone: [facility] 03-06-2025 09:42-0400 Body mass index (BMI) [Ratio] 26.42 kg/m2 Ruddy Frey LCSW-C Work Phone: [facility] 03-06-2025 09:42-0400 Body surface area Derived from formula 1.86 m2 Ruddy Frey LCSW-C Work Phone: [facility] 03-06-2025 09:42-0400 Body temperature 97.81 [degF] Ruddy Frey LCSW-C Work Phone: [facility] 03-06-2025 09:42-0400 Body weight 74.25 kg Ruddy Frey LCSW-C Work Phone: [facility] 03-06-2025 09:42-0400 Diastolic blood pressure 66 mm[Hg] Ruddy Frey LCSW-C Work Phone: [facility] 03-06-2025 09:42-0400 Heart rate 89 /min Ruddy Frey LCSW-C Work Phone: [facility] 03-06-2025 09:42-0400 SaO2% (BldA) [Mass fraction] 97 % Ruddy Frey LCSW-C Work Phone: [facility] 03-06-2025 09:42-0400 Systolic blood pressure 122 mm[Hg] Ruddy Frey LCSW-C Work Phone: [facility] 03-04-2025 15:06-0400 Body height 167.64 cm Marco Rice WHCNP Work Phone: [facility] 03-04-2025 15:06-0400 Body mass index (BMI) [Ratio] 26.21 kg/m2 Marco Rice WHCNP Work Phone: [facility] 03-04-2025 15:06-0400 Body weight 73.66 kg Marco Rice WHCNP Work Phone: [facility] 03-04-2025 15:06-0400 Diastolic blood pressure 68 mm[Hg] Marco Rice WHCNP Work Phone: [facility] 03-04-2025 15:06-0400 Heart rate 95 /min Marco Rice WHCNP Work Phone: [facility] 03-04-2025 15:06-0400 Systolic blood pressure 100 mm[Hg] Marco Rice WHCNP Work Phone: [facility] 02-27-2025 08:11-0400 Body height 167.64 cm Hadley Kanani DMD Work Phone: [facility] 02-27-2025 08:11-0400 Body mass index (BMI) [Ratio] 34.86 kg/m2 Hadley Kanani DMD Work Phone: [facility] 02-27-2025 08:11-0400 Body surface area Derived from formula 2.14 m2 Hadley Kanani DMD Work Phone: [facility] 02-27-2025 08:11-0400 Body temperature 98.2 [degF] Hadley Kanani DMD Work Phone: [facility] 02-27-2025 08:11-0400 Body weight 97.98 kg Hadley Kanani DMD Work Phone: [facility] 02-27-2025 08:11-0400 Diastolic blood pressure 66 mm[Hg] Hadley Ardonani DMD Work Phone: [facility] 02-27-2025 08:11-0400 Heart rate 69 /min Hadley Ardonani DMD Work Phone: [facility] 02-27-2025 08:11-0400 Systolic blood pressure 102 mm[Hg] Hadley Ardonani DMD Work Phone: [facility] 02-26-2025 11:36-0400 Diastolic blood pressure 68 mm[Hg] Hadley Duglasani DMD Work Phone: [facility] 02-26-2025 11:36-0400 Heart rate 89 /min Hadley Ardonani DMD Work Phone: [facility] 02-26-2025 11:36-0400 Systolic blood pressure 95 mm[Hg] Hadley Ardonani DMD Work Phone: [facility] 01-14-2025 10:37-0400 Body mass index (BMI) [Ratio] 25.76 kg/m2 Yuliet Noah PROFESSIONAL HEALTHCARE REPRESENTATIVE.TUNNEL KILN OPERATOR Work Phone: [facility] 01-14-2025 10:37-0400 Body weight 72.39 kg Yuliet Troy PROFESSIONAL HEALTHCARE REPRESENTATIVE.TUNNEL KILN OPERATOR Work Phone: [facility] 01-14-2025 10:37-0400 Diastolic blood pressure 66 mm[Hg] Yuliet Noah PROFESSIONAL HEALTHCARE REPRESENTATIVE.TUNNEL KILN OPERATOR Work Phone: [facility] 01-14-2025 10:37-0400 Systolic blood pressure 128 mm[Hg] Yuliet Troy PROFESSIONAL HEALTHCARE REPRESENTATIVE.TUNNEL KILN OPERATOR Work Phone: [facility] 12-21-2021 15:07-0400 Body weight 107.96 kg Amy Streeter MD Work Phone: [facility] 12-21-2021 15:07-0400 Diastolic blood pressure 76 mm[Hg] Amy Streeter MD Work Phone: [facility] 12-21-2021 15:040 Systolic blood pressure 120 mm[Hg] Amy Streeter MD Work Phone: [facility] Encounters Encounter Date Encounter Type Care Provider Facility Start: 04-21-2025 ambulatory Ruddy DICKERSON [facility] Start: 04-17-2025 End: 04-17-2025 ambulatory [facility] Start: 04-10-2025 End: 04-10-2025 Encounter identifier Marco DODSON Work Phone: [facility] Start: 04-09-2025 End: 04-09-2025 Office outpatient visit 15 minutes Marco DODSON Work Phone: [facility] Start: 04-04-2025 End: 04-04-2025 Encounter identifier Ruddy DICKERSON Work Phone: [facility] Start: 04-02-2025 End: 04-02-2025 Encounter identifier Marco Yuliet DODSON Work Phone: [facility] Start: 03-31-2025 End: 03-31-2025 Encounter identifier Hadley Quiroga DMD [facility] Phone[facility] Start: 03-27-2025 End: 03-27-2025 Encounter identifier Marco Moorehoda DODSON Work Phone: [facility] Start: 03-26-2025 End: 03-26-2025 Encounter identifier Marcoprecious Moorehoda DODSON Work Phone: [facility] Start: 03-24-2025 End: 03-24-2025 Encounter identifier Hadley Quiroga DMD Work Phone: [facility] Start: 03-20-2025 End: 03-20-2025 Patient encounter procedure Marco JENKINSP -[facility] Work Phone: Start: 03-20-2025 End: 03-20-2025 ambulatory [facility] Work Phone: [facility] Work Phone: Start: 03-17-2025 End: 03-17-2025 Encounter identifier Hadley Quiroga BRAULIO Work Phone: [facility] Start: 03-17-2025 End: 03-17-2025 Encounter identifier Coby Marco Hurst LCSW-C Work Phone: [facility] Start: 03-14-2025 End: 03-14-2025 Office outpatient visit 15 minutes Ruddy Frey LCSW-C Work Phone: [facility] Start: 03-12-2025 End: 03-12-2025 Encounter identifier Marco Jacques CNP Work Phone: [facility] Start: 03-11-2025 End: 03-11-2025 Encounter identifier Ruddy Frey LCSW-C Work Phone: [facility] Start: 03-11-2025 End: 03-11-2025 Encounter identifier Marco Jacques CNP Work Phone: [facility] Start: 03-10-2025 End: 03-10-2025 Encounter identifier Yovani Rondon DDS Work Phone: [facility] Start: 03-10-2025 End: 03-10-2025 Encounter identifier Marco Jacques CNP Work Phone: [facility] Start: 03-09-2025 End: 03-09-2025 Encounter identifier Ruddy Frey LCSW-C Work Phone: [facility] Start: 03-08-2025 End: 03-09-2025 Emergency department patient visit [facility] Work Phone: -Emergency Room Work Phone: Start: 03-07-2025 End: 03-07-2025 Encounter identifier Ruddy Frey LCSW-C Work Phone: [facility] Start: 03-06-2025 End: 03-06-2025 Encounter identifier Daisy Clancy DDS Work Phone: [facility] Start: 03-06-2025 End: 03-06-2025 Office outpatient visit 25 minutes Ruddy Frey LCSW-C Work Phone: [facility] Start: 03-04-2025 End: 03-04-2025 Encounter for gynecological examination (general) (routine) without abnormal findings Marco Jacques WHCNP Work Phone: [facility] Start: 03-04-2025 End: 03-04-2025 Periodic preventive med est patient 40-64yrs Marco Horvath Sawyer WHCNP Work Phone: [facility] Start: 02-27-2025 End: 02-27-2025 Encounter identifier Hadley Quiroga DMD Work Phone: [facility] Start: 02-26-2025 End: 02-26-2025 comprehensive oral evaluation - new or established patient Hadley Quiroga DMD Work Phone: [facility] Start: 02-26-2025 End: 02-26-2025 Encounter identifier Hadley Quiroga BRAULIO Work Phone: [facility] Start: 01-21-2025 End: 03-23-2025 Follow-up encounter Yuliet Johnson PROFESSIONAL HEALTHCARE REPRESENTATIVE.TUNNEL KILN OPERATOR Work Phone: OB/Gynecology Start: 01-14-2025 End: 01-14-2025 ambulatory YULIET JOHNSON Facility:[facility] Start: 01-14-2025 End: 01-14-2025 Patient encounter procedure Yuliet Johnson PROFESSIONAL HEALTHCARE REPRESENTATIVE.TUNNEL KILN OPERATOR Work Phone: OB/Gynecology Comment on above: Abnormal uterine ble eding (AUB) (Primary Dx); Vaginal odor; Screening for cervical cancer; Special screening examination for human papillomavirus (HPV); Encounter for screening mammogram for malignant neoplasm of breast; Uterine prolapse; Cystocele, midline Start: 12-31-2024 End: 12-31-2024 Emergency department patient visit SARAH MONTANA [facility] Start: 10-06-2024 End: 10-06-2024 Emergency department patient visit SARAH MONTANA [facility] Start: 09-15-2024 End: 09-15-2024 Emergency department patient visit HERBERT KOWALSKI [facility] Start: 09-15-2024 ambulatory SARAH MONTANA [facility] Start: 04-05-2024 End: 04-05-2024 Emergency department patient visit Sarah Briones NP Facility:[facility] Start: 03-06-2024 ambulatory SARAH MONTANA [facility] Start: 02-18-2024 End: 02-18-2024 Emergency department patient visit Sarah Briones NP Facility:[facility] Start: 11-03-2023 ambulatory [facility] Provider Tanya ash Comment on above: Mammogram Start: 11-03-2023 E-mail encounter fro m caregiver [facility] Provider YESSICA MCKEON Start: 06-25-2023 End: 06-25-2023 ambulatory Suma Link NP Facility:[facility] Start: 12-22-2021 Telephone encounter Amy Streeter MD Work Phone: OB/Gynecology Comment on above: Results Start: 12-21-2021 End: 12-21-2021 Patient encounter procedure Amy Streeter MD Work Phone: OB/Gynecology Comment on above: Screen for STD (sexu ally transmitted disease) (Primary Dx) Start: 06-25-2020 End: 06-28-2020 Patient encounter procedure RAQUEL WINSLOWMARY ALCIE [facility] Start: 06-25-2020 End: 06-27-2020 Subsequent hospital visit by physician [facility] 1 [facility] Ultrasound Comment on above: Adnexal pain Start: 06-20-2017 Ambulatory AMEENA-VERO RUIZ Fa cility:[facility] Procedures Date Procedure Procedure Detail Performing Clinician Start: 04-09-2025 End: 04-09-2025 DIAST BP 80-89 MM HG Marco [facility] Work Phone: Start: 04-09-2025 End: 04-09-2025 Documentation of current medications Marco [facility] Work Phone: Start: 04-09-2025 End: 04-09-2025 HEMOGLOBIN A1C LEVEL > 9.0% [facility] Work Phone: Start: 04-09-2025 End: 04-09-2025 History of Tobacco use Narrative [facility] Work Phone: Start: 04-09-2025 End: 04-09-2025 LDL-C <100 MG/DL Marco [facility] Work Phone: Start: 04-09-2025 End: 04-09-[address]D IN RD Marco [facility] Work Phone: Start: 04-09-2025 End: 04-09-2025 PT TOBACCO USE DONE RCVD TLK Marco [facility] Work Phone: Start: 04-09-2025 End: 04-09-2025 RVW MEDS BY RX/DR IN [facility] LCSW Work Phone: Start: 04-09-2025 End: 04-09-2025 SYST BP < 130 MM HG Marco [facility] Work Phone: Start: 03-31-2025 End: 03-31-2025 Documentation of current medications Hadley Quiroga DMD Work Phone: Start: 03-31-2025 End: 03-31-2025 oral hygiene instructions Hadley Cisse MD Work Phone: Start: 03-31-2025 End: 03-31-2025 resin-based composite - two surfaces, posterior Hadley Quiroga DMD Work Phone: Start: 03-31-2025 End: 03-31-2025 Treatment Completed Hadley Quiroga DMD Work Phone: Start: 03-24-2025 End: 03-24-2025 oral hygiene instructions Hadley Cisse MD Work Phone: Start: 03-24-2025 End: 03-24-2025 Post Op Visit Dental Hadley Quiroga DMD Work Phone: Start: 03-20-2025 End: 03-20-2025 Mammogram, screening Marco Sawyer [facility] Work Phone: Start: 03-20-2025 Pelvic echography [facility] Work Phone: Start: 03-20-2025 Transvaginal echography [facility] Work Phone: Start: 03-20-2025 End: 03-20-2025 [facility] Work [facility]: Start: 03-17-2025 Education Education (chi ef complaint) Coby Hurst LCSW-C Work Phone: Start: 03-17-2025 End: 03-17-2025 No Charge Coby Hurst LCSW-C Work Phone: Start: 03-17-2025 End: 03-17-2025 oral hygiene instructions Hadley Cisse MD Work Phone: Start: 03-17-2025 End: 03-17-2025 Treatment Not Completed Hadley Quiroga DMD Work Phone: Start: 03-14-2025 End: 03-14-2025 Documentation of current medications Ruddy YOOC Work Phone: Start: 03-14-2025 End: 03-14-2025 History of Tobacco use Narrative Ruddy YOOC Work Phone: Start: 03-10-2025 End: 03-10-2025 Chlamydial infection Yovani Rondon DDS Start: 03-10-2025 End: 03-10-2025 Documentation of current medications Yovani Rondon DDS Start: 03-10-2025 End: 03-10-2025 oral hygiene instructions Yovani Rondon DD S Start: 03-10-2025 End: 03-10-2025 palliative (emergency) treatment of dental pain - minor procedure Yovani Rondon DDS Start: 03-07-2025 End: 03-07-2025 Hemoglobin A1c/Hemoglobin.total in Blood Ruddy Frey LCSW-C Work Phone: Start: 03-07-2025 End: 03-07-2025 Lipid panel Marcoprecious [facility] Work Phone: Start: 03-06-2025 End: 03-06-2025 Collection venous blood venipuncture Ruddy Frey LCSW-C Work Phone: Start: 03-06-2025 End: 03-06-2025 Documentation of current medications Ruddy Frey LCSW-C Work Phone: Start: 03-06-2025 End: 03-06-2025 extraction, erupted tooth or exposed root (elevation and/or forceps removal) Daisy Clancy DDS Work Phone: Start: 03-06-2025 End: 03-06-2025 History of Tobacco use Narrative Ruddy Frey LCSW-C Work Phone: Start: 03-06-2025 End: 03-06-2025 nutritional counseling for control of dental disease Daisy Clancy DDS Work Phone: Start: 03-04-2025 End: 03-04-2025 BP scrn perf rec interval Marco Jacques [facility] LCSW Work Phone: Start: 03-04-2025 End: 03-04-2025 DIAST BP < 80 MM HG Marco Jacques [facility] Work Phone: Start: 03-04-2025 End: 03-04-2025 Documentation of current medications Marco Sawyer [facility] Work Phone: Start: 03-04-2025 End: 03-04-2025 History of Tobacco use N[facility]ative [facility] Work [facility] Start: 03-04-2025 End: 03-04-2025 [facility] Work Phone: Start: 03-04-2025 End: 03-04-2025 PT TOBACCO USE DONE RCVD TLK Marco [facility] Work Phone: Start: 03-04-2025 End: 03-04-2025 RVW MEDS BY RX/DR IN RD [facility] LCSW Work Phone: Start: 03-04-2025 End: 03-04-2025 Scr dep neg, no plan reqd [facility] LCSW Work Phone: Start: 03-04-2025 End: 03-04-2025 SYST BP < 130 MM HG [facility] Work Phone: Start: 02-27-2025 End: 02-27-2025 caries risk assessment and documentation, with a finding of high risk Hadley Quiroga DMD Work Phone: Start: 02-27-2025 End: 02-27-2025 Documentation of current medications Hadley Ardonbryan DMD Work Phone: Start: 02-27-2025 End: 02-27-2025 History of Tobacco use Narrative Hadley Quiroga DMD Work Phone: Start: 02-27-2025 End: 02-27-2025 nutritional counseling for control of dental disease Hadley Quiroga DMD Work Phone: Start: 02-27-2025 End: 02-27-2025 oral hygiene instructions Hadley Cisse MD Work Phone: Start: 02-27-2025 End: 02-27-2025 prophylaxis - adult Hadley Quiroga DMD Work Phone: Start: 02-26-2025 End: 02-26-2025 intraoral - complete series of radiographic images Hadley Quiroga DMD Work Phone: Start: 02-26-2025 End: 02-26-2025 oral hygiene instructions Hadley Cisse MD Work Phone: Start: 02-26-2025 End: 02-26-2025 panoramic radiographic image Hadley Quiroga DMD Work Phone: Start: 12-31-2024 Urinalysis SARAH WILLINGHAM Comment on above: Result Comment: URIN ALYSIS Performed By: #### [id number] #### [facility],[address] [place] [id number] Start: 10-06-2024 Urinalysis SARAH WILLINGHAM Comment on above: Result Comment: URIN ALYSIS Performed By: #### [id number] #### [facility],[address] [place] [id number] Start: 06-25-2020 Us pelvic nonobstetr ic real-time image complete Raquel Rivera Work Phone: Start: 06-25-2020 Us transvaginal Veronic a Tarmary alice Work Phone: Plan of Treatment Date Care Activity Detail Author Start: 03-13-2029 DTaP/Tdap/Td vaccine (6 - Td) DTaP/Tdap/Td vaccine (6 - Td) [place] Start: 03-13-2029 Urine microalbumin profile [facility] Start: 01-16-2026 End: 01-16-2026 Patient encounter procedure 01/16/2026 11:30 AM EDT Office Visit OB/Gynecology [address] [place] [address] Yuliet Johnson APRN.TUNNEL KILN OPERATOR [address] [place] [address] annual OB/Gynecology Comment on above: annual Start: 01-14-2026 Screening for malign ant neoplasm of cervix Cervical Cancer Screening [facility] Start: 09-08-2025 Ana Fulton [facility] Work Phone: Start: 09-02-2025 Sunny, Ana Anson Cou [facility] Work Phone: Start: 09-01-2025 Ana Fulton [facility] Work Phone: Start: 06-20-2025 Ana Fulton [facility] Work Phone: Start: 05-23-2025 Ana Fulton [facility] Work Phone: Start: 04-18-2025 Ana Fulton [facility] Work Phone: Start: 04-18-2025 [facility] Work Phone: Start: 04-09-2025 Dietary management education, guidance, and counseling Dietary management education, guidance, and counseling [facility] Start: 04-09-2025 Smoking cessation education Tobacco cessation counseling [facility] Start: 04-09-2025 End: 04-09-[address] [facility] Work Phone: Start: 04-07-2025 [facility] Start: 04-02-2025 [facility] Work Phone: Start: 04-02-2025 Hep A. Due on [facility] Work Phone: Start: 03-31-2025 End: 03-31-[address]25 [facility] Work Phone: Start: 03-27-2025 [facility] Work Phone: Start: 03-26-2025 End: 03-26-[address]25 [facility] Work Phone: Start: 03-24-2025 [facility] Work Phone: Start: 03-17-2025 End: 03-17-2025 [facility] Work Phone: Start: 03-14-2025 End: 03-14-2025 [facility] Work Phone: Start: 03-14-2025 Lifestyle education regarding diet Lifestyle education regarding diet [facility] Start: 03-14-2025 Smoking cessation education Tobacco cessation counseling [facility] Start: 03-12-2025 N[facility] Work Phone: Start: 03-11-2025 End: 03-11-2025 [facility] Work Phone: Start: 03-11-2025 N[facility] Work Phone: Start: 03-10-2025 Nato [facility] Work Phone: Start: 03-10-2025 Nato [facility] Work Phone: Start: 03-09-2025 Nato [facility] Work Phone: Start: 03-07-2025 Nato [facility] Work Phone: Start: 03-06-2025 Counseling about tobacco use Tobacco cessation counseling [facility] Start: 03-06-2025 Dietary management education, guidance, and counseling Dietary management education, guidance, and counseling [facility] Start: 03-06-2025 End: 03-06-[address] [facility] Work Phone: Start: 03-06-2025 End: 03-06-[address] [facility] Work Phone: Start: 03-04-2025 Dietary management education, guidance, and counseling Dietary management education, guidance, and counseling [facility] Start: 03-04-2025 Mammography MAMMOGRAM, SCREENING [facility] Start: 03-04-2025 Tobacco use cessatio n education Tobacco cessation counseling [facility] Start: 03-04-2025 Us pelvic nonobstetr ic real-time image complete US EXAM, PELVIC, COMPLETE [facility] Start: 03-04-2025 [facility] Work Phone: Start: 02-27-2025 Dietary management education, guidance, and counseling Dietary management education, guidance, and counseling [facility] Start: 02-27-2025 Patient referral Ruddy DICKERSON timeframe: 6 Months. (related to Body mass index [BMI] 34.0-34.9, adult) 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 [employer] [address] [place], [place] [id number] Abnormal uterine bleeding (AUB) [N93.9] OB/Gynecology Comment on above: Abnormal uterine ble eding (AUB) [N93.9] Start: 01-20-2025 End: 01-20-2025 Patient encounter procedure 01/20/2025 11:10 AM EDT Appointment Mammogram [address] [facility] [place], [place] [id number] Encounter for screening mammogram for malignant neoplasm of breast [Z12.31] Mammogram Comment on above: Encounter for screen ing mammogram for malignant neoplasm of breast [Z12.31] Start: 01-14-2025 End: 01-14-2026 US Pelvis PELVIC US [facility] Anc Imaging Routine Abnormal uterine bleeding (AUB) Expected: 01/14/2025, Expires: 01/14/2026 [facility] Work Phone: Comment on above: Expected: 01/14/2025 , Expires: 01/14/2026 Start: 04-07-2024 Covid-19 Vaccine ( season) Covid-19 Vaccine () [facility] Start: 04-07-2024 Influenza vaccination Influenz a Vaccine (Season Ended) [facility] Start: 01-24-2024 HPV TESTING HPV TESTING [facility] Start: 01-24-2024 Screening for malign ant neoplasm of cervix HPV Testing [facility] Start: 08-07-2023 Depression Assessment Depression Ass essment [facility] Start: 04-07-2023 Covid-19 Vaccine ( season) Covid-19 Vaccine ( season) [facility] Start: 2022 Screening for malign ant neoplasm of breast Mammogram Screening [facility] Start: 04-07-2022 Influenza vaccination INFLUENZA (Sea son Ended) [facility] Start: 04-07-2020 Influenza vaccination Flu vaccine (# 1) [place] Start: 01-24-2020 PAP TESTING PAP TESTING [facility] Start: 01-24-2020 Screening for malign ant neoplasm of cervix [facility] Start: 04-06-2019 Creatinine measurement Creatinine mo nitoring [place] Start: 04-06-2019 Potassium monitoring Potassium monit oring [place] Start: 2009 HPV Vaccine (1 - 3-d ose SCDM series) HPV Vaccine (1 - 3-dose SCDM series) [facility] Start: 2003 Screening for malign ant neoplasm of cervix Cervical cancer screen [place], [place] Start: 2001 Hepatitis B Vaccine (1 of 3 - 19+ 3-dose series) Hepatitis B Vaccine (1 of 3 - 19+ 3-dose series) [facility] Start: 2001 Pneumococcal vaccination Pneumococcal Vaccine (1 of 2 - PCV) [facility] Start: 2000 Anxiety Screening Anxiety Screening [facility] Start: 2000 Depression Screening Depression Scre ening [facility] Start: 2000 HEPATITIS C SCREENING HEPATITIS C SC REENING [facility] Start: 2000 HIV SCREENING HIV SCREENING [facility] Start: 1997 [facility] [place] [place] Start: 1994 Adult depression screening assessment DEPRESSION SCREENING [facility] Start: 1988 Pneumococcal 0-64 ye ars Vaccine (1 of 1 - PPSV23) Pneumococcal 0-64 years Vaccine (1 of 1 - PPSV23) [place] Start: 1988 Pneumococcal vaccination Pneumococcal Vaccine (1 of 2 - PCV) [facility] Start: 1987 COVID-19 VACCINE (#1) COVID-19 VACCI NE (#1) [facility] Start: 1983 Varicella vaccine (1 of 2 - 2-dose childhood series) Varicella vaccine (1 of 2 - 2-dose childhood series) [place] BACTERIAL VAGINOSIS AMPLIFICATION BACTERIAL VAGINOSIS AMPLIFICATION Lab Routine Screen for STD (sexually transmitted disease) 12/21/2021 3:23 PM EDT [facility] Work Phone: NIMCO / TRICHOMONA S AMPLIFICATION NIMCO / TRICHOMONAS AMPLIFICATION Lab Routine Screen for STD (sexually transmitted disease) 12/21/2021 3:23 PM EDT [facility] Work Phone: Chlamydia trachomatis+Neisseria gonorrhoeae DNA [Presence] in Unspecified specimen by RUSSELL with probe detection GC/CHLAMYDIA DNA DET Lab Routine Screen for STD (sexually transmitted disease) 12/21/2021 3:23 PM EDT [facility] Work Phone: End: 12-05-2024 DBT Breast - bilateral screening JESENIA SCREENING W DEBOR[facility] Radiology Routine Breast cancer screening by mammogram 1 Occurrences starting 11/06/2023 until 12/05/2024 [facility] Work Phone: Comment on above: 1 Occurrences starti ng 11/06/2023 until 12/05/2024 End: 02-13-2026 DBT Breast - bilateral screening JESENIA SCREENING W DEBORAH Radiology Routine Encounter for screening mammogram for malignant neoplasm of breast 1 Occurrences starting 01/14/2025 until 02/13/2026 [facility] Comment on above: 1 Occurrences starti ng 01/14/2025 until 02/13/2026 PAP TEST PAP TEST Lab Rou kenisha Screening for cervical cancer Special screening examination for human papillomavirus (HPV) 01/14/2025 11:12 AM EDT [facility] Patient Education Type 2 diabete s - Discharge instructions [facility] Work Phone: Patient referral [facility] Work Phone: Immunizations Immunization Date Immunization Notes Care Provider Jacob yun 03-13-2019 tetanus toxoid, redu cristine diphtheria toxoid, and acellular pertussis vaccine, adsorbed Amy Streeter MD Work Phone: [facility] 08-15-2013 influenza virus vaccine, unspecified formulation [facility] Provider [facility] 07-26-2011 measles, mumps and rubella virus vaccine Amy Streeter MD Work Phone: [facility] Work Phone: 07-26-2011 tetanus toxoid, redu cristine diphtheria toxoid, and acellular pertussis vaccine, adsorbed Amy Streeter MD Work Phone: [facility] Work Phone: 04-01-1987 diphtheria, tetanus toxoids and pertussis vaccine Amy Streeter MD Work Phone: [facility] Work Phone: 04-01-1987 measles, mumps and rubella virus vaccine Amy Streeter MD Work Phone: [facility] Work Phone: 04-01-1987 trivalent poliovirus vaccine, live, oral Amy Streeter MD Work Phone: [facility] Work Phone: 02-17-1983 diphtheria, tetanus toxoids and pertussis vaccine Amy Streeter MD Work Phone: [facility] Work Phone: 1982 trivalent poliovirus vaccine, live, oral Amy Streeter MD Work Phone: [facility] Work Phone: 1982 diphtheria, tetanus toxoids and pertussis vaccine Amy Streeter MD Work Phone: [facility] Work Phone: 1982 trivalent poliovirus vaccine, live, oral Amy Streeter MD Work Phone: [facility] Work Phone: Payers Date Payer Category Payer Medicaid [id number] 2025 [facility] [id number] 2024 Blue Cross Blue Shield [id number] 2024 Unknown [id number] 2024 Private Health Insurance [id number] 2023 Self-pay 2022 Unknown [id number] 2022 Unknown [id number] 2019 Medicaid UHC MEDICAID [employer]HC [employer] MEDICAID [id number] 2019-Present [phone] [address] [place] [address] Medicaid [id number] 2019 Private Health Insurance [id number] 1982 Unknown [id number] 1982 Unknown [id number] 1982 Unknown [id number] 1982 Unknown [id number] Unknown [id number] Unknown [id number] Unknown [id number] 462 Unknown [id number] Unknown [id number] Unknown [id number] Social History Date Type Detail Facility Start: 04-06-2018 End: 03-08-2025 Tobacco smoking status NHIS Current every day smoker [facility] History of tobacco use Cigarette Smoker [place] Start: 04-06-2018 End: 02-24-2023 Cigarettes smoked current (pack per day) - Reported [facility] Start: 04-06-2018 End: 01-14-2025 Tobacco use and exposure Never used [place] Start: 04-06-2018 Alcohol intake Current non-dr aix architect of alcohol (finding) [place] Start: 02-02-2018 Alcohol Comment in Recovery [place], [place] Start: 1982 Sex Assigned At Not on file [place], [place] Start: 06-11-2012 End: 01-14-2025 Tobacco smoking status COIS Occasional tobacco smoker [facility] Work Phone: Start: 12-21-2021 End: 01-14-2025 Alcohol intake Ex-drinker (finding) [facility] Start: 03-13-2019 History SDOH Alcohol Comment used 2 months ago [facility] Start: 03-13-2019 End: 01-14-2025 Tobacco Comment 4 yrs a pack a day [facility] Start: 12-10-2021 End: 12-20-2021 Exposure to SARS-CoV-2 (event) Not sure [facility] Work Phone: Start: 12-21-2021 End: 02-24-2023 Tobacco use panel [facility] Start: 07-08-2012 PHQ2 Score 0 [facility] Start: 1980 Sex assigned at Female C [facility] Start: 01-07-2019 Gender identity Identifies as female gender (finding) [facility] Start: 01-29-2024 Sexual orientation Heterosexual (fin patrice) [facility] Sex Female (finding) [facility] Start: 02-26-2025 End: 04-10-2025 Tobacco smoking status NHIS Unknown if ever smoked [facility] Start: 02-26-2025 Alcohol intake Alcohol Use Details [facility] Start: 02-27-2025 History of tobacco use Heavy c igarette smoker (20-39 cigs/day) [facility] Start: 02-27-2025 Health-related behavior (observable entity) Caffeine Use Details [facility] Start: 02-27-2025 Tobacco use and exposure Smoking Tobacco Use Details [facility] NEGATED: Highlighted row N [facility] NEGATED: Highlighted row Alcohol intake Alcohol Use Details [facility] Medical Equipment Procedure Code Equipment Code Equipment Origin al Text Equipment Identifier Dates QID PRN testing for symptoms of abnormal blood sugar Start: 03-06-2025 Functional Status Date Assessment Result Facility 01-23-2015 Are you deaf, or do you have serious difficulty hearing No 01/23/2015 3:02 PM Magdalene Renteria, ARNAUD No [facility] 01-23-2015 Are you blind, or do you have serious difficulty seeing, even when wearing glasses No 01/23/2015 3:02 PM Magdalene Renteria, ARNAUD No [facility] 01-23-2015 Do you have serious difficulty walking or climbing stairs No 01/23/2015 3:02 PM Magdalene Renteria, ARNAUD No [facility] 01-23-2015 Do you have difficul ty dressing or bathing No 01/23/2015 3:02 PM Magdalene Renteria, ARNAUD No [facility] 01-23-2015 Because of a physica l, mental, or emotional condition, do you have difficulty doing errands alone such as visiting a physician's office or shopping No 01/23/2015 3:02 PM Magdalene Renteria, RN No [facility] Mental Status Date Assessment Result Facility 01-23-2015 Because of a physica l, mental, or emotional condition, do you have serious difficulty concentrating, remembering, or making decisions No 01/23/2015 3:02 PM Magdalene Renteria, ARNAUD No [facility] Clinical Notes 12-21-2021 to 04-09-2025 Note Date & Type Note Facility 04-09-2025 Evaluation note Type assessment Body mass index [BMI] 24.0-24.9, adult assessment Boil assessment Chlamydial infection assessment - STD High risk heterosexual beh avior assessment - STD screen [facility] Work Phone: 1([phone]) 107-903509-03-2025 History of Present illness Narrative* Encounter Date Complaint History Of Prese nt Illness DORIS Patient is here for DORIS and has a boil on her left buttock that is red and tender to touch [facility] Work Phone: 1([phone] 439-845309-03-2025 Instructions* Date Instruction Additional Infor mation Discussed boil in de tail recommend heating pad to area TID for 20 min, Motrin 800mg PRN pain and Rx for bactrim Ds 1 BID for 10 days Related to Boil cervical cultures ob tained and sent to lab. Patient to call in 1 week for result. Stress importance of using condoms to prevent STDs in the future. Related to Chlamydial infection Dietary management e ducation, guidance, and counseling Related to Body mass index [BMI] 24.0-24.9, adult [facility] Work Phone: 1(140) 519-699308-25-2025 History of Present illness Narrative* Encounter Date Complaint History Of Prese nt Illness Filling Continue with tr partha [facility] Work Phone: 1([phone]) [phone] History of Present illness Narrative* Encounter Date Complaint History Of Prese nt Illness DL [facility] Work Phone: 1([phone]) 394-679008-14-2025 [facility] [place] [address] Ultrasound Report Signed Patient: Ana Fulton MR#: [id number] : 1980 Acct:[id number] Age/Sex: 44 / F ADM Date: 5 Loc: XD Room: Type: [facility] Attending Dr: Marco Jacques ([facility]) WILLIAM Ordering Provider: Marco Jacques APRN, WHCNP Date of Service: 03/20/25 US/US transvaginal: N93.9 ([id number]) US/US pelvic complete: N93.9 Copies to: Marco Jacques APRN, WHCNP~ Pelvic ultrasound. Reason for exam: Heavy vaginal bleeding last month. Comparison: none Technique: Transabdominal imaging of the uterus and ovaries was performed. Transvaginal imaging of the uterus and ovaries was also obtained. Additional spectral Doppler analysis of the ovaries was also obtained. Findings: Uterus measures 8.0 x 5.6 x 5.1 cm. Fibroid involving the fundus measuring 1.6 x 1.6 x 1.1 cm with likely degenerating component. Endometrium measures 2.2 mm. Right ovary measures 2.6 x 1.8 x 2.3 cm. Left ovary measures 2.4 x 2 x 1 x 2.1 cm. Normal arterial and venous Doppler waveforms. A corpus luteum/hemorrhagic cyst is seen involving the right ovary measuring 2 cm. Dominant follicle left ovary measuring 1.8 cm. US/US transvaginal Impression: Fibroid uterus. Unremarkable endometrium and ovaries. Impression dictated by: Amrik Quesada Jr., D.ODoc 03/20/2025 3:18 PM Dictation Location: [place] [address] Tech: Blanche Rodriguez Transcribed By: BRANDAN 03/20/25 2148 Dictated By: Amrik Quesada Jr, DO 03/20/25 1516 Signed By: 03/20/25 1518 [facility]08-11-2025 Evaluation note* Type Assessment Date assessment Encounter for screening for dent al disorders [facility] Work Phone: 1([phone]) 476-237308-11-2025 History of Present illness Narrative* Encounter Date Complaint History Of Prese nt Illness Filling Continue with tr eatment [facility] Work Phone: [phone] Chief complaint+Reason for visit Narrative From encounter dated '03/17/2025 09:21'. Education (chief complaint). Description: Pt presents for education on self administering Trulicty injection. Proces discussed in detail, questions answered. Pt administered to self without difficulty.RWeidmanFERNANDO [facility] Work Phone: 1([phone]) [phone] Evaluation note* Type Assessment Date assessment Type 2 diabetes paula itus with hyperglycemia, without long-term current use of insulin impression maxed metformin and glipizide ERblood sugars decreased from 400-500 home readings to 200-300 with dose [id number] 14.5%continues with symptoms of elevated sugars intermittentlyopen to starting GLP-1, denies personal or family history of thyroid carcinoma or personal history of pancreatitis.Would like diabetic education class will refer assessment Hemoglobin A1C great er than 9%, indicating poor diabetic control assessment Body mass index [BMI] 26.0-26.9, adult [facility] Work Phone: [phone] History of Present illness Narrative* Encounter Date Complaint History Of Prese nt Illness diabetes The problem is g etting worse. Client is compliant with using medication, and follow-up. Managing with: Oral medications. Home glucose readings: Min 230, Max 450 Associated symptoms include: blurred vision, constant hunger, increased fatigue and weight loss. Pertinent negatives include burning of extremities, chest pain, diarrhea, foot ulcers, frequent infections, urinary frequency and slow healing wounds / sores. Additional information: Taking metformin and glipizide as ordered and reduction of blood sugars into 200-300mg/dl range with increased dose of glipizide. Stuart DELVALLE. F/U Labs Here to discuss most recent labwork.//Nahid LARES [facility] Work Phone: [phone]) [phone] Instructions* Date Instruction Additional Infor shayan 1. Take medications as prescribedCONTINUE METFORMIN 2GM DAILYCONTINUE GLIPIZIDE ER 20MG DAILYSTART TRULICITY 0.75MG QWEEK2. Decrease intake of concentrated sugars and carbohydrates3. Eliminate sugar from all beverages4. Exercise and weight loss5. Follow up in 1 months.6. PLESE ENSURE YOU MAINTAIN GOOD DENTAL HYGIENE AND REGULAR DENTAL VISITS7. Maintain annual eye exams.8. Maintain foot care with well fitting shoes, daily foot checks, and podiatry visits for nail clipping.9. [facility]FORM TRIAGE NURSE IF YOU RUN OUT OF MEDICATION PRIOR TO YOUR NEXT VISIT.Referral placed to [facility] FAXED PER IGNACIO ZIEGLER If you have not been contacted per specialist office to which you referred to in 2 weeks please contact the Health Center at [phone] and advise triage nurse. Related to Type 2 diabetes mellitus with hyperglycemia, without long-term current use of insulin Giving encouragement to exercise Related to Body mass index [BMI] 26.0-26.9, adult Lifestyle education regarding di et Related to Body mass index [BMI] 26.0-26.9, adult [facility] Work Phone: [phone]) [phone] History of Present illness Narrative* Encounter Date Complaint History Of Prese nt Illness dl dl [facility] Work Phone: [phone]) 375-306008-03-2025 Hospital Discharge instructions Additional Instructions As you know, your blood sugar was high tonight. We gave you insulin to get it down. You are going to follow-up with your doctor and they are going to try to get you on more medicine. You may need to be on insulin. Your hemoglobin A1c level is high enough that it requires significant action, which may be starting insulin. It is very important to follow-up closely with your doctor about this. I would call them on Monday and let them know that you had to come in because of high blood sugar tonight. If you have any significant problems or concerns, we are always happy to see you here.[facility] Work Phone: 1([phone]) 645-682807-31-2025 Evaluation note* Type Assessment Date assessment Type 2 diabetes paula itus without complication, without long-term current use of insulin assessment Abdominal discomfort assessment Chronic GERD impression labs pendingexpresse d interest in MouHemoteqronLxDATA blood glucose monitor impression llq hyperactive karmen l per patientdiarrhea since starting metformin assessment Body mass index [BMI] 26.0-26.9, adult [facility] Work Phone: [phone] History of Present illness Narrative* Encounter Date Complaint History Of Prese nt Illness ext [facility] Work Phone: [phone] Instructions* Date Instruction Additional Infor shayan 1. Avoid nicotine, a lcohol, and caffeine2. Do not eat 2 hours prior to bedtime3. Avoid large meals4. Avoid spicy or greasy foods, avoid other foods which may cause reflux5. Famotidine 20mg daily6. Mylanta, Maalox, or LISA as needed for immediate relief7. FOLLOW UP: 6 months Related to Chronic GERD 1. Labs pending up 2 . UA pending3. ER for worsening of symptoms4. Follow up 2 weeks Related to Abdominal discomfort 1. Take medications as prescribed2. Decrease intake of concentrated sugars and carbohydrates3. Eliminate sugar from all beverages4. Exercise and weight loss5. Follow up in 2 weeks6. PLESE ENSURE YOU MAINTAIN GOOD DENTAL HYGIENE AND REGULAR DENTAL VISITS7. Maintain annual eye exams.8. Maintain foot care with well fitting shoes, daily foot checks, and podiatry visits for nail clipping.9. PLEASE CONTACT [facility] AND INFORM TRIAGE NURSE IF YOU RUN OUT OF MEDICATION PRIOR TO YOUR NEXT VISIT. Related to Type 2 diabetes mellitus without complication, without long-term current use of insulin Giving encouragement to exercise Related to Body mass index [BMI] 26.0-26.9, adult Dietary management e ducation, guidance, and counseling Related to Body mass index [BMI] 26.0-26.9, adult [facility] Work Phone: [phone] Evaluation note* Type Assessment Date assessment Encounter for gyneco logical examination (general) (routine) without abnormal findings assessment Body mass index [BMI] 26.0-26.9, adult assessment - STD heterosexual behavior assessment - STD cultures assessment - HIV assessment mammogram screening assessment Episode of heavy vaginal bleedin g [facility] Work Phone: [phone] 727-992507-29-2025 History of Present illness Narrative* Encounter Date Complaint History Of Prese nt Illness annual exam Currently pregna nt: no. : 3. Parity: Term: 3. Livin.Client is not contemplating . The client states using Essure for control. Last LMP was 02/01/2025. Patient's menses is irregular. Negative for dysmenorrhea and menorrhagia. Negative for: breast discharge, breast lump(s), breast pain and breast self exam.Negative for Hormone replacement therapy. The client does use tobacco. Tobacco cessation has been discussed. The client does not drink alcohol. Additional information: Patient is here for annual exam. She is currently living in [facility]. She was seen by cancer registry manager provider in [place] who Dx her with a prolapsed bladder and wanted her to complete a pelvic sonogram and get a partial hysterectomy. States she has recently felt something hard in the vaginal vault while trying to insert a tampon. She had ASCUS pap 1 month go at [facility]. She has a history of abnormal paps and had a LEEP in 2013. Patient has been abstinent for 1 month and uses the Essure for BCM. Sierra was being worked up for partial hysterectomy with [facility] due to cyctocele and uterine prolapse. [facility] Work Phone: [phone] Instructions* Date Instruction Additional Infor mation Pelvic sonogram orde red to evaluate menorrhagia. Appt made with Dr. Hernandez for evaluation of cystocele and ?prolapsed uterus as she was in process of being worked up at [facility] prior to admission to [facility] for alcohol abuse. Related to Episode of heavy vaginal bleeding HIV, RPR and Hep C d rawn and sent to lab. Pateint to call in 1 week for result Related to - HIV Encouraged good diet filipe intake, exercise and healthy lifestyle choices. Recommend daily multi-vitamin with Folic acid. Understands the need for non-violent partners in a consensual relationship. Patient does not desire a in the near future. Reviewed control options for prevention and desires to continue using Essure Related to Encounter for gynecological examination (general) (routine) without abnormal findings cervical cultures ob tained and sent to lab. Patient to call in 1 week for result. Stress importance of using condoms to prevent STDs in the future. Related to - STD cultures Giving encouragement to exercise Related to Body mass index [BMI] 26.0-26.9, adult Dietary management e ducation, guidance, and counseling Related to Body mass index [BMI] 26.0-26.9, adult [facility] Work Phone: [phone] Evaluation note* Type Assessment Date assessment Body mass index [BMI] 34.0-34.9, adult [facility] Work Phone: 1([phone]) 209-186207-24-2025 History of Present illness Narrative* Encounter Date Complaint History Of Prese nt Illness madhu baldwin [facility] Work Phone: [phone] Instructions* Date Instruction Additional Infor mation Giving encouragement to exercise Related to Body mass index [BMI] 34.0-34.9, adult Dietary management e ducation, guidance, and counseling Related to Body mass index [BMI] 34.0-34.9, adult [facility] Work Phone: [phone] History of Present illness Narrative* Encounter Date Complaint History Of Prese nt Illness dental new DN [facility] Work Phone: [phone]) 421-573806-10-2025 NoteHNO ID: [id number] Author: YULIET JOHNSON APRN.TUNNEL KILN OPERATOR Service: ? Author Type: Nurse Practitioner Type: Progress Notes Filed: 01/14/2025 11:18 Note Text: Patient declined senior analytic consultant. Obstetrics and Gynecology [facility] LATENT FINGERPRINT EXAMINER Visit Subjective Recording using [employer] software for draft documentation of the visit was discussed with the patient/authorized cash applications representative; all questions welcomed and answered. Patient/authorized cash applications representative agreed to proceed CHIEF COMPLAINT: The patient is a 44-year-old female with a history of diabetes presenting with prolonged menstrual bleeding and pelvic pain. HPI: Menstrual Irregularities - Reports a current menstrual period lasting approximately 9 days, which is longer than her usual 4-5 day duration. - Describes the bleeding as regular in flow, requiring tampon changes every couple of hours, and notes the presence of clots. - Denies any significant increase in cramping, experiencing only her usual mild cramps in the lower abdomen and back. - This is the first episode of prolonged bleeding; her periods are typically regular. - Uses Essure for control. Pelvic Pain - Reports feeling a hard thing inside the vaginal canal, especially around her period time. - Experiences dyspareunia, noting that some days intercourse is painful and other days it is not. - Feels something hard when inserting a tampon, requiring her to move it around. Urinary Symptoms - Reports occasional burning during urination, but not consistently. - Experiences urgency, stating, if I got to pee, I got to pee right now. Stomach Pain - Reports frequent stomach pain, unsure if it is related to her diabetes or other causes. - Has a scheduled appointment with her primary care physician to address this issue. Past Screenings - Pap smears are usually performed by her primary care physician. - Has not had a mammogram or colonoscopy yet. HISTORY: OB History Gravida4 Para3 Term3 Preterm0 AB1 Living3 SAB0 IAB1 Ectopic0 Multiple0 Live Births3 Yarn Hauler History LMP: 12/14/2024 (Exact Date), Having periods Age at Menarche: Age at First : Age at Menopause: Yarn Hauler History Comments: Sexual Activity: Yes; Male; Essure Procedure Done Contraception: Surgical PAST MEDICAL HISTORY Diagnosis Date Abnormal glandular Papanicolaou smear of cervix Abn. Pap smear (cervix) Alcohol abuse Diabetes mellitus (HCC) Pt reported GERD (gastroesophageal reflux disease) 03/02/2012 Migraine PAST SURGICAL HISTORY Procedure Laterality Date HYSTEROSCOPY BI TUBE OCCLUSION W/PERM IMPLNTS 04/03/08 Essure sterilization LAPS SURG CHOLECYSTECTOMY W/CHOLANGIOGRAPHY 10/23/13 normal IOC LEEP PROCEDURE (LATENT FINGERPRINT EXAMINER DEPT)_*FL 2004 TONSILLECTOMY PRIMARY/SECONDARY Tonsillectomy TUBAL LIGATION FAMILY HISTORY Problem Relation Age of Onset Thyroid Mother Migraines Mother other (Other) Sister half sister other (Other) Sister half sister Heart Maternal Grandmother other (lung ca) Maternal Grandmother Cancer Maternal Grandfather LUNG CANCER Social History Tobacco Use Smoking status: Some Days Current packs/day: 1.00 Types: Cigarettes Smokeless tobacco: Never Tobacco comments: 4 yrs a pack a day Vaping Use Vaping status: Never Used Substance Use Topics Alcohol use: Not Currently Comment: used 2 months ago Drug use: No Current Outpatient Medications Medication Sig glipiZIDE (GLUCOTROL XL) 5 mg 24 hr tablet Take 1 tablet by mouth once daily. metFORMIN (GLUCOPHAGE) 1,000 mg tablet Take 1 tablet by mouth every 12 hours. BORIC ACID MISC as needed. norethindrone (AYGESTIN) 5 mg tablet Take 1 tablet TID until bleeding stops for 24 hours, then 1 tablet BID x 3 days, then 1 tablet daily x 3 days. No current facility-administered medications for this visit. ALLERGIES Allergen Reactions Acetaminophen Vomiting Vicodin [Hydrocodon* Vomiting REVIEW OF SYSTEMS: Gastrointestinal: (+) abdominal pain Genitourinary: (+) prolonged menstrual bleeding, (+) vaginal blood clots, (+) pelvic cramping, (+) dysuria, (+) urinary urgency Musculoskeletal: (+) low back pain Objective SENSITIVE EXAM: The sensitive examination was discussed with the Patient or Patient's Authorized Outsole Cementer Machine. As applicable, any other physician, advance practice provider, medical student, or other health professional student that will be observing or involved in the sensitive examination for educational or training purposes was discussed with the Patient or Authorized Outsole Cementer Machine. The Patient or Authorized Outsole Cementer Machine has agreed to proceed with the sensitive examination. (Sensitive examination includes inspection and/or palpation of the breasts, pelvis, prostate and anorectal regions). PHYSICAL EXAM: BP 128/66 Wt 159 lb 9.6 oz (72.4kg) LMP 12/14/2024 GENERAL: Pleasant; in no apparent distress PULMONARY: normal inspiratory effort : - PELVIC: ext (more content not included)...[facility]06-10-2025 History of Present illness Narrative* Yuliet Johnson APRN.TUNNEL KILN OPERATOR - 01/14/2025 10:31 AM EDT Images from the original note were not included. Patient declined senior analytic consultant. Obstetrics and Gynecology [facility] LATENT FINGERPRINT EXAMINER Visit Subjective Recording using [facility] [employer] software for draft documentation of the visit was discussed with the patient/authorized cash applications representative; all questions welcomed and answered. Patient/authorized cash applications representative agreed to proceed CHIEF COMPLAINT: The patient is a 44-year-old female with a history of diabetes presenting with prolonged menstrual bleeding and pelvic pain. HPI: Menstrual Irregularities - Reports a current menstrual period lasting approximately 9 days, which is longer than her usual 4-5 day duration. - Describes the bleeding as regular in flow, requiring tampon changes every couple of hours, and notes the presence of clots. - Denies any significant increase in cramping, experiencing only her usual mild cramps in the lowerabdomen and back. - This is the first episode of prolonged bleeding; her periods are typically regular. - Uses Essure for control. Pelvic Pain - Reports feeling a hard thing inside the vaginal canal, especially around her period time. - Experiences dyspareunia, noting that some days intercourse is painful and other days it is not. - Feels something hard when inserting a tampon, requiring her to move it around. Urinary Symptoms - Reports occasional burning during urination, but not consistently. - Experiences urgency, stating, if I got to pee, I got to pee right now. Stomach Pain - Reports frequent stomach pain, unsure if it is related to her diabetes or other causes. - Has a scheduled appointment with her primary care physician to address this issue. Past Screenings - Pap smears are usually performed by her primary care physician. - Has not had a mammogram or colonoscopy yet. HISTORY: OB History Gravida4 Para3 Term3 Preterm0 AB1 Living3 SAB0 IAB1 Ectopic0 Multiple0 Live Births3 Yarn Hauler History LMP: 12/14/2024 (Exact Date), Having periods Age at Menarche: Age at First : Age at Menopause: Yarn Hauler History Comments: Sexual Activity: Yes; Male; Essure Procedure Done Contraception: Surgical PAST MEDICAL HISTORY Diagnosis Date Abnormal glandular Papanicolaou smear of cervix Abn. Pap smear (cervix) Alcohol abuse Diabetes mellitus (HCC) Pt reported GERD (gastroesophageal reflux disease) 03/02/2012 Migraine PAST SURGICAL HISTORY Procedure Laterality Date HYSTEROSCOPY BI TUBE OCCLUSION W/PERM IMPLNTS 04/03/08 Essure sterilization LAPS SURG CHOLECYSTECTOMY W/CHOLANGIOGRAPHY 10/23/13 normal IOC LEEP PROCEDURE (LATENT FINGERPRINT EXAMINER DEPT)_*[place] 2004 TONSILLECTOMY PRIMARY/SECONDARY <AGE 14 Tonsillectomy TUBAL LIGATION FAMILY HISTORY Problem Relation Age of Onset Thyroid Mother Migraines Mother other (Other) Sister half sister other (Other) Sister half sister Heart Maternal Grandmother other (lung ca) Maternal Grandmother Cancer Maternal Grandfather LUNG CANCER Social History Tobacco Use Smoking status: Some Days Current packs/day: 1.00 Types: Cigarettes Smokeless tobacco: Never Tobacco comments: 4 yrs a pack a day Vaping Use Vaping status: Never Used Substance Use Topics Alcohol use: Not Currently Comment: used 2 months ago Drug use: No Current Outpatient Medications Medication Sig glipiZIDE (GLUCOTROL XL) 5 mg 24 hr tablet Take 1 tablet by mouth once daily. metFORMIN (GLUCOPHAGE) 1,000 mg tablet Take 1 tablet by mouth every 12 hours. BORIC ACID MISC as needed. norethindrone (AYGESTIN) 5 mg tablet Take 1 tablet TID until bleeding stops for 24 hours, then 1 tablet BID x 3 days, then 1 tablet daily x 3 days. No current facility-administered medications for this visit. ALLERGIES Allergen Reactions Acetaminophen Vomiting Vicodin [Hydrocodon* Vomiting REVIEW OF SYSTEMS: Gastrointestinal: (+) abdominal pain Genitourinary: (+) prolonged menstrual bleeding, (+) vaginal blood clots, (+) pelvic cramping, (+) dysuria, (+) urinary urgency Musculoskeletal: (+) low back pain Objective SENSITIVE EXAM: The sensitive examination was discussed with the Patient or Patient's Authorized Outsole Cementer Machine. As applicable, any other physician, advance practice provider, medical student, or other health professional student that will be observing or involved in the sensitive examination for educational or training purposes was discussed with the Patient or Authorized Outsole Cementer Machine. The Patient or Authorized Outsole Cementer Machine has agreed to proceed with the sensitive examination. (Sensitive examination includes inspection and/or palpation of the breasts, pelvis, prostate and anorectal regions). PHYSICAL EXAM: BP 128/66 Wt 159 lb 9.6 oz (72.4kg) LMP 12/14/2024 GENERAL: Pleasant; in no apparent distress PULMONARY: normal inspiratory effort : - PELVIC: external genitalia normal, normal Bartholin's glands, urethra, Harahan's glands, no vulvar lesions, significant cystocele and uterine prolapse noted, cervix and uterus low in the vaginal canal, vaginal weinstein normal, no unusual discharge, normal appearing perineal body and perianal region - BIMANUAL: uterus normal size, shape and consistency, no adnexal masses, non-tender - Patient consent for exam received NEURO: alert and oriented x3 EXTREMITIES: normal Assessment & Plan ASSESSMENT AND PLAN: ASSESSMENT/PLAN: 1. Abnormal uterine bleeding (AUB) - ICD9: 626.9, ICD10: N93.9 (primary diagnosis) - PELVIC US WHI 2. Vaginal odor - ICD9: 625.8, ICD10: N89.8 3. Screening for cervical cancer - ICD9: V76.2, ICD10: Z12.4 - PAP TEST 4. Special screening examination for human papillomavirus (HPV) - ICD9: V73.81, ICD10: Z11.51 - PAP TEST 5. Encounter for screening mammogram for malignant neoplasm of breast - ICD9: V76.12, ICD10: Z12.31 - JESENIA SCREENING W DEBORAH 6. Uterine prolapse - ICD9: 618.1, ICD10: N81.4 7. Cystocele, midline - ICD9: 618.01, ICD10: N81.11 - Take Aygestin exactly as directed to stop the bleedin tablet three times a day until you haveno bleeding for 24 hours, then 1 tablet twice a day for 3 days, then 1 tablet once a day for 3 days. Complete the entire taper to prevent the bleeding from returning. - Fill the Aygestin prescription (with extra tablets) at [facility] in [place]. - Schedule a pelvic ultrasound today at the vest front presser - Pap smear was performed today; expect results in 1-2 weeks. - A mammogram order has been placed; schedule that screening with the vest front presser. - Your provider will contact you once the ultrasound report is reviewed to discuss next steps. - If your bleeding continues or returns despite the medication, call the office so we can adjust your treatment. - Be aware that your exam showed bladder and uterine prolapse, which can cause urinary urgency, leakage, and pain with intercourse. We ll discuss possible surgical options (such as a partial hysterectomy) after reviewing the ultrasound findings. Yuliet Johnson APRN.RUBÉN Medical Decision Making: Problems: Moderate: New problem with uncertain prognosis Data: Unique test(s) ordered: 3+ Risk: Moderate: Drug management Medical Decision Making Level: 4 - Moderate documented in [facility]25 NoteDischarge Instructions Discharge Summary [address] [address] [id number] 10/06/2024 Patient: ANA FULTON Sex: Female : 1980 Age: 44y Thank you for visiting [facility]. You have been evaluated today by Wilfrido Bruce M.D. for the following condition(s): Principal Diagnosis Mild dehydration (secondary to hyperglycemia). Chronic, poorly controlled type 2 diabetes with hyperglycemia. vaginal yeast infection. INSTRUCTIONS Prescription Medications: fluconazole 200 mg daily. Follow-up with: Sarah Briones, LORENA, PROFESSIONAL HEALTHCARE REPRESENTATIVE, PRESCHOOL LEAD TEACHER-C, [facility], Phone: [phone], [address], [place] [address]. Follow up in five days. Callfor an appointment. Patient Signature Facility Outsole Cementer Machine Date/Time 1 of 2 Discharge Instructions General Instructions with ExitWriter [address] [address] [id number] 10/06/2024 Patient: ANA FULTON Sex: Female : 1980 Age: 44y Thank you for visiting [facility]. You have been evaluated today by Wilfrido Bruce M.D. for the following condition(s): Principal Diagnosis Mild dehydration (secondary to hyperglycemia). Chronic, poorly controlled type 2 diabetes with hyperglycemia. vaginal yeast infection. INSTRUCTIONS Prescription Medications: fluconazole 200 mg daily. Follow-up with: Sarah Briones DNP, WILLIAM, SANDRA, [facility], Phone: [phone], [address] [address]. Follow up in five days. Callfor an appointment. [facility] NoteDischarge Instructions Discharge Summary [place] [address] [place] [address] [id number] 09/15/2024 Patient: ANA FULTON Sex: Female : 1980 Age: 44y Thank you for visiting [facility]. You have been evaluated today by Herbert Kowalski D.O. for the following condition(s): Principal Diagnosis Acute bronchitis. Bacterial maxillary and frontal sinusitis. INSTRUCTIONS Drink plenty of fluids. Prescription Medications: Augmentin 500 mg-125 mg tablet: Take 1 tablet by mouth three times a day for 7 days, dispense 21 tablet. Refills 0. Pharmacy: [facility] [id number] [place] [address]. prednisone 20 mg tablet: Take 1 tablet by mouth twice a day for 5 days, dispense 10 tablet. Refills0. Pharmacy: [facility] [id number] [place] [address]. acetaminophen 300 mg-codeine 30 mg tablet: Take 1 tablet by mouth every six to eight hours as needed for pain for 5 days, dispense 10 tablet. Refills 0. Pharmacy: [facility] [id number] [place] [address]. 1 of 7 Discharge Instructions Follow-up with: Sarah Briones DNP, WILLIAM, SANDRA, [facility], Phone: [phone], [address] [place] [address] [address] [address]. (rest. return if increasing pain problems or concerns. any difficulties return back to the emergency department). 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 [address] [id number] 09/15/2024 Patient: ANA FULTON Sex: Female : 1980 Age: 44y Thank you for visiting [facility]. You have been evaluated today by Herbert Kowalski D.O. for the following condition(s): Principal Diagnosis Acute bronchitis. Bacterial maxillary and frontal sinusitis. INSTRUCTIONS 2 of 7 Discharge Instructions Drink plenty of fluids. Prescription Medications: Augmentin 500 mg-125 mg tablet: Take 1 tablet by mouth three times a day for 7 days, dispense 21 tablet. Refills 0. Pharmacy: [facility] [id number] [place] [phone]. prednisone 20 mg tablet: Take 1 tablet by mouth twice a day for 5 days, dispense 10 tablet. Refills0. Pharmacy: [facility] [id number] [place] [address]. acetaminophen 300 mg-codeine 30 mg tablet: Take 1 tablet by mouth every six to eight hours as needed for pain for 5 days, dispense 10 tablet. Refills 0. Pharmacy: [facility] [id number] [place] [address]. Follow-up with: Sarah Briones, LORENA, PROFESSIONAL HEALTHCARE REPRESENTATIVE, PRESCHOOL LEAD TEACHER-C, [facility], Phone: [phone], [address] [place] [address] [address] [address]. (rest. return if increasing pain problems or concerns. any difficulties return back to the emergency department). ADDITIONAL INFORMATION Viral Syndrome (Adult) A viral illness may cause a number of symptoms such as fever. Other symptoms depend on the part of the body that the virus affects. If it settles in your nose, throat, and lungs, it may cause cough, sore throat, congestion, runny nose, headache, earache and other ear symptoms, or shortness of breath. If it settles in yourstomach and intestinal tract, it may cause nausea, vomiting, cramping, and diarrhea. Sometimes it causes generalized symptoms like aching all over, feeling tired, loss of energy, or loss of appetite. A viral illness usually lasts anywhere from several days to several weeks, but sometimes it lasts longer. In some cases, a more serious infection can look like a viral syndrome in the first few days of the illness. You may need another exam and additional tests to know the difference. Watch for the warning signs listed below for when to seek medical advice. 3 of 7 Discharge Instructions Home care Follow these guidelines for taking care of yourself at home: If symptoms are severe, rest at home for the first 2 to 3 days. Stay away from cigarette smoke - both your smoke and the smoke from others. You may use [id number] acetaminophen or ibuprofen for fever, muscle aching, and headache, unless another medicine was prescribed for this. If you have chronic liver or kidney disease or ever had a stomach ulcer or gastrointestinal bleeding, talk with your healthcare provider before using these medicines. No one who is younger than 18 and ill with a fever should take aspirin. (more content not included)...[facility]04-01-2024 Miscellaneous Notes* Telephone Encounter - Inderjit Doss PA-C - 11/06/2023 10:17 AM EDT Done * Telephone Encounter - Magdalene Craft - 11/06/2023 10:15 AM EDT Order pending for review. Please advise. Magdalene Craft documented in this encounterTr[facility]05-18-2022 Miscellaneous Notes* Telephone Encounter - Amy Streeter MD - 12/22/2021 11:23 AM EDT ordered * Telephone Encounter - Hannah Ramachandran RN - 12/22/2021 11:15 AM EDT Patient notified. Pharmacy updated. Please file. Hannah Ramachandran RN * Telephone Encounter - Hannah Ramachandran RN - 12/22/2021 11:15 AM EDT ----- Message from Amy Streeter MD sent at 12/22/2021 10:49 AM EDT ----- Notify patient of +BV. Will order flagyl. Avoid alcohol during treatment and 24 hrs after treatment. Please confirm pharmacy- one listed is Daniel bravo documented in this encounterTrinity Health [facility]05-17-2022 History of Present illness Narrative* Amy Streeter MD - 12/21/2021 3:04 PM EDT Physical Geographer offered: Patient declines. Ana Fulton is a 41 year old female who presents for concerns regarding vaginal bump/hardness she noticed the other day. Pt reports had sex with her ex and found out he was having sex with other women- would like tested for stds. Pt denies any abnormal discharge or odors. Pt reports she had a pap done by Family Physician the other week and reports it was normal. Pt reports has h/o vaginal warts and was wondering if that is what she felt. Pt states she she feels the lumps might have disappeared. Denies dysuria, vaginal odor or dsicharge or other Concerns today. OB History T3 L3 SAB0 IAB1 Ectopic0 Multiple0 Live Births3 Yarn Hauler History LMP: 11/24/2019, Having periods Age at Menarche: Age at First : Age at Menopause: Yarn Hauler History Comments: Sexual Activity: Yes; Male; Essure Procedure Done Contraception: Surgical PAST MEDICAL HISTORY Diagnosis Date Abnormal glandular Papanicolaou smear of cervix Abn. Pap smear (cervix) Alcohol abuse GERD (gastroesophageal reflux disease) 03/02/2012 Migraine PAST SURGICAL HISTORY Procedure Laterality Date HYSTEROSCOPY, STERILIZATION 04/03/08 Essure sterilization LAP CHOLECYSTECT/CHOLANGIOGRAPHY 10/23/13 normal IOC LEEP PROCEDURE (LATENT FINGERPRINT EXAMINER DEPT)_*FL 2004 REMOVAL OF TONSILS,<12 Y/O Tonsillectomy TUBAL LIGATION FAMILY HISTORY Problem Relation Age of Onset Thyroid Mother Migraines Mother other (Other) Sister half sister other (Other) Sister half sister Heart Maternal Grandmother other (lung ca) Maternal Grandmother Cancer Maternal Grandfather LUNG CANCER Social History Tobacco Use Smoking status: Current Some Day Smoker Packs/day: 1.00 Types: Cigarettes Smokeless tobacco: Never Used Tobacco comment: 4 yrs a pack a day Substance Use Topics Alcohol use: Not Currently Comment: used 2 months ago Drug use: No Current Outpatient Medications Medication Sig citalopram (CELEXA) 20 mg tablet Take 20 mg by mouth once daily. No current facility-administered medications for this visit. Allergies As of Date: 12/21/2021 Allergen Noted Reaction VICODIN [HYDROCODONE-ACETAMINOPHE*10/02/2013 Vomiting Fully Assessed 02/14/2020 REVIEW OF SYSTEMS Abdomen: no pain Bladder: no dysuria .. Expanded ROS: GENERAL: Negative for fever Allergies and current medication updated:Yes EXAM: BP 120/76 Wt 238 lb (108.0kg) LMP 11/24/2021 GENERAL: pleasant, female in no apparent distress HEENT: Normocephalic, atraumatic, mucus membranes moist and no lesions ABDOMEN: soft, non-tender and no masses PELVIC: external genitalia normal, normal Bartholin's glands, urethra, Harahan's glands, no vulvar lesions, no cervical lesions, good vaginal support, physiologic discharge present, normal appearing perineal body and perianal region BIMANUAL: uterus normal size, shape and consistency, no adnexal masses and non-tender NEURO: alert and oriented x3,exam grossly non-focal EXTREMITIES: normal ASSESSMENT AND PLAN: Encounter Diagnosis ICD-10-CM 1. Screen for STD (sexually transmitted disease) Z11.3 NIMCO / TRICHOMONAS AMPLIFICATION BACTERIAL VAGINOSIS AMPLIFICATION GC/CHLAMYDIA DNA DET 2. Reassurance given- follow up as needed - yearly for routine annual Medical Decision Making: Problems: Low: Acute, uncomplicated illness or injury Data: Unique test(s) ordered: 3+ Medical Decision Making Level: 3 - Low Amy Browne MD documented [facility]* Clinical Note Date No Information [facility] Work Phone: Discharge summary* Clinical Note Date No Information [facility] Work Phone: Evaluation note* Diagnosis Screen for STD (sexually transmitted disease)- Primary Screening examination for venereal disease documented in this encounter [facility] note* Diagnosis Breast cancer screening by mammogram- Primary documented in this encounter [facility] note* Diagnosis Abnormal uterine bleeding (AUB)- Primary Vaginal odor Unspecified symptom associated with female genital organs Screening for cervical cancer Screening for malignant neoplasm of the cervix Special screening examination for human papillomavirus (HPV) Encounter for screening mammogram for malignant neoplasm of breast Other screening mammogram Uterine prolapse Uterine prolapse without mention of vaginal wall prolapse Cystocele, midline documented in this encounter [facility] noteNo assessment information availableCrystal [facility] Work Phone: Evaluation note* Type Assessment Date No Information [facility] Work Phone: History and physical note* Clinical Note Date No Information [facility] Work Phone: History of Past illness Narrative* Condition Effective Dates (start - stop) O utcome No Information [facility] Work Phone: History of Present illness Narrative* Encounter Date Complaint History Of Prese nt Illness No Information [facility] Work Phone: Instructions* Date Instruction Additional Infor mation No Information [facility] Work Phone: Progress note* Clinical Note Date No Information [facility] Work Phone: Reason for referral (narrative)* Diagnostic Procedure Only (Routine) - Pending Review Specialty Diagnoses / Procedures Referred By Contac t Referred To Contact [facility] Diagnoses Breast cancer screening by mammogram Procedures JESENIA SCREENING W DEBORAH SCREENING DIGITAL BREAST TOMOSYNTHESIS BI SCREENING MAMMOGRAPHY BI 2-VIEW BREAST INC Inderjit Portillo PA-C [address] [place] [address] [address] [place] [address] [facility] [address] [place] [address] Referral ID Status Reason Start Date Expiration Date Visits Requested Visits Authorized [id number] Pending Review Auto-Generat ed Referral 11/06/2023 12/05/2024 1 1 [facility] (narrative)No reason for referral information availableCrystal Clinic [facility] Work Phone: Reason for referral (narrative)* Reason For Referral No Information [facility] Work Phone: Review of systems Narrative - Reported* System Pos/Neg Findings No Information [facility] Work Phone: Summary Purpose Family History Family Member Type Diagnosis Age At Onset Mother Problem (finding) Alive and well Father Problem (finding) Cardiovascular disease Father Problem (finding) Alive and well Advance Directives Documents on File Type Date Recorded Patient Outsole Cementer Machine Expl anation ACP-Advance Directive ACP-Power of Business System Consultant Documents on File Type Date Recorded Patient Outsole Cementer Machine Expl anation Advance Directive(s) Advance Directive(s) 02/14/2020 9:07 PM Advance Directive(s) 11/27/2019 11:11 AM Advance Directive(s) 10/27/2019 9:17 AM Advance Directive(s) 04/08/2019 8:56 AM Advance Directive Response Recorded Date/ Time Advance Directives No March 08 7:20pm Directive Yes / No Effective Date File Name No Information Advance Directive Response Recorded Date/ Time Advance Directives No March 17, 2025 9:44am Reason for Referral Status Reason Specialty Diagnoses / Procedures Referred By Contact Referred To Contact Pending Review Radiology Diagnoses Adnexal pain Procedures US NON OB TRANSVAGINAL Raquel Stafford, PROFESSIONAL HEALTHCARE REPRESENTATIVE - TUNNEL KILN OPERATOR [address] [place] [address] Status Reason Specialty Diagnoses / Procedures Referred By Contact Referred To Contact Pending Review Radiology Diagnoses Adnexal pain Procedures US PELVIS COMPLETE Raquel Stafford, PROFESSIONAL HEALTHCARE REPRESENTATIVE - TUNNEL KILN OPERATOR [address] [place] [address] Assessments Diagnosis Adnexal pain Unspecified symptom associated with female genital organs Chief Complaint and Reason for Visit Chief Complaint Admit Date High BS March 08, 2025 6:5 5pm Chief Complaint Admit Date High BS March 08, 2025 6:5 5pm n93.9 March 20, 2025 1: 01pm N93.9 March 20, 2025 1: 27pm Physical Exam Exam Findings Details Abdomen Normal No abdominal ten derness. Genitourinary Normal Urethral meatus - Normal. External genitalia - Normal. Glands - Normal. Perineum - Normal. Anus - Normal. Vagina - Normal. Cervix - Normal. Uterus - Normal. Adnexa - Normal. Bladder - Normal. Psychiatric Normal Orientation - Or iented to time, place, person & situation. Appropriate mood and affect. Exam Findings Details Respiratory Normal Effort - Normal. Neurological Normal Memory - Normal. Psychiatric Normal Orientation - Or iented to time, place, person & situation. Appropriate mood and affect. Exam Findings Details Skin Normal Inspection - Nor mal. Eyes Normal Conjunctiva - Ri ght: Normal, Left: Normal. Respiratory Normal Inspection - Nor mal. Auscultation - Normal. Effort - Normal. Neurological Normal Memory - Normal. Psychiatric Normal Orientation - Or iented to time, place, person & situation. Appropriate mood and affect. Cardiovascular Normal Regular rate and rhythm. No murmurs, gallops, or rubs. Abdomen Normal Patient is not o bese. Inspection - Normal. Appliance(s) - None. Abdominal muscles - Normal. Auscultation - Normal. Anterior palpation - Normal, No guarding, No rebound. No abdominal tenderness. No hernia. No ascites. Maloney's sign - Normal. Psoas sign - Normal. Exam Findings Details Neck Exam Normal Palpation - Norm al. Thyroid gland - Normal. Breast Normal Inspection - [place] ateral: Normal. Palpation - Bilateral: Normal. Nipples - Bilateral: Normal. Lymph nodes - Normal. Abdomen Normal No abdominal ten derness. Genitourinary Normal Urethral meatus - Normal. External genitalia - Normal. Glands - Normal. Perineum - Normal. Anus - Normal. Cervix - Normal. Adnexa - Normal. Bladder - Normal. Genitourinary * Vagina - large c ystocele. Uterus - prolapse. Psychiatric Normal Orientation - Or iented to time, place, person & situation. Appropriate mood and affect. Additional Source Comments INFORMATION SOURCE (unrecogn ized section and content) DATE CREATED AUTHOR 01/30/2018 [facility] DATE CREATED AUTHOR AUTHOR'S ORGANIZ ATION 04/05/2019 [facility] DATE CREATED AUTHOR AUTHOR'S ORGANIZ ATION 11/18/2019 [facility] DATE CREATED AUTHOR AUTHOR'S ORGANIZ ATION 02/28/2020 [facility] DATE CREATED AUTHOR AUTHOR'S ORGANIZ ATION 04/20/2020 [facility] DATE CREATED AUTHOR AUTHOR'S ORGANIZ ATION 06/27/2020 [facility] DATE CREATED AUTHOR AUTHOR'S ORGANIZ ATION 12/29/2020 [facility] DATE CREATED AUTHOR AUTHOR'S ORGANIZ ATION 12/03/2021 [facility] [place] DATE CREATED AUTHOR AUTHOR'S ORGANIZ ATION 04/29/2024 [facility] DATE CREATED AUTHOR AUTHOR'S ORGANIZ ATION 01/03/2025 [facility] DATE CREATED AUTHOR AUTHOR'S ORGANIZ ATION 01/24/2025 [facility] DATE CREATED AUTHOR AUTHOR'S ORGANIZ ATION 04/03/2025 [facility] DATE CREATED AUTHOR AUTHOR'S ORGANIZ ATION 04/19/2025 [facility] DATE CREATED AUTHOR AUTHOR'S ORGANIZ ATION 04/21/2025 [facility] Reason for Visit (unrecogniz ed section and content) Status Reason Specialty Diagnoses / Procedures Referred By Contact Referred To Contact Pending Review Radiology Diagnoses Pelvic and perineal pain Procedures HC US TRANSVAGINAL, NON OB Raquel Stafford, PROFESSIONAL HEALTHCARE REPRESENTATIVE - TUNNEL KILN OPERATOR [address] [place] [address] [facility] Ul[facility] [address] [place] [address] Reason Comments Vaginal Problem Reason Comments Results Reason Comments Problem Visit Source Comments (unrecognize d section and content) In the event this informatio n is protected by the Federal Confidentiality of Alcohol and Drug Abuse Patient Records regulations: The Federal rules restrict any use of the information to criminally investigate or prosecute any alcohol or drug abuse patient.[facility] the event this information is protected by the Federal Confidentiality of Alcohol and Drug Abuse Patient Records regulations: The Federal rules restrict any use of the information to criminally investigate or prosecute any alcohol or drug abuse patient.[facility] Campus[facility] the event this information is protected by the Federal Confidentiality of Alcohol and Drug Abuse Patient Records regulations: The Federal rules restrict any use of the information to criminally investigate or prosecute any alcohol or drug abuse patient.[facility] Campus[facility] the event this information is protected by the Federal Confidentiality of Alcohol and Drug Abuse Patient Records regulations: The Federal rules restrict any use of the information to criminally investigate or prosecute any alcohol or drug abuse patient.[facility] Campus[facility] the event this information is protected by the Federal Confidentiality of Alcohol and Drug Abuse Patient Records regulations: The Federal rules restrict any use of the information to criminally investigate or prosecute any alcohol or drug abuse patient.[facility] Care Teams (unrecognized sec tion and content) Dock Superintendent Relationship Specialty [place] [id number] [facility] [address] [place] [address] PCP - General Internal Medicine 03/13/19 Dock Superintendent Relationship Specialty Start [place] [id number] [facility] [address] [place] [address] PCP - General Internal Medicine 03/13/19 Dock Superintendent Relationship Specialty Start Date End Date Ravinder Tavera MD PCP - General Internal Medicine 03/13/19 Dock Superintendent Relationship Specialty Start Date End Date Sarah Briones, PROFESSIONAL HEALTHCARE REPRESENTATIVE.[facility] [address] [place] [id number] PCP - General Internal Medicine 01/14/25 Aileen Samuels PA-C [id number] [facility], [address] [place] [address] Fire Chief Internal Medicine 07/12/24 Team Status: Active Member Role Status Dates [facility] Active Team Status: Inactive Member Role Status Dates [facility] Active Start: March 08, 2025 End: March 09, 2025 Art March Jr, MD Emergency Provider Active Start: March 08, 2025 End: March 09, 2025 Name Effective Dates (start - stop) Status Members No Information Team Status: Active Member Role Status Dates Ruddy Frey , LCSW-C Primary Care Provider Active Team Status: Inactive Member Role Status Dates Marco Jacques ([facility]) , PROFESSIONAL HEALTHCARE REPRESENTATIVE Attending Provider Active Start: March 20, 2025 End: March 20, 2025 Ruddy Frey , LCSW-C Primary Care Provider Active Start: March 20, 2025 End: March 20, 2025 Team Status: Inactive Member Role Status Dates Ruddy Frey LCSW-C Primary Care Provider Active Start: March 20, 2025 End: March 20, 2025 Marco Jacques ([facility]) , PROFESSIONAL HEALTHCARE REPRESENTATIVE Attending Provider Active Start: March 20, 2025 End: March 20, 2025 Dock Superintendent Relationship Specialty Start Date End Date Sarah Briones, PROFESSIONAL HEALTHCARE REPRESENTATIVE.[facility] [address] [place] [id number] PCP - General Internal Medicine 01/14/25 Aileen Samuels PA-C [address] [place], [place] [id number] [place] [address] Fire Chief Internal Medicine 07/12/24 Goals (unrecognized section and content) Health Concern Goal Type Priority Status No Information FOR RECORDS PERTAINING TO PATIENTS WHO ARE OR HAVE BEEN ENROLLED IN A CHEMICAL DEPENDENCY/SUBSTANCEABUSE PROGRAM, SOME INFORMATION MAY BE OMITTED. This clinical summary was aggregated from multiple sources. Caution should be exercised in using it in the provision of clinical care. This summary normalizes information from multiple sources, and as a consequence, information in this document may materially change the coding, format and clinical context of patient data. In addition, data may be omitted in some cases. CLINICAL DECISIONS SHOULD BE BASED ON THE PRIMARY CLINICAL RECORDS. [employer] [facility]. provides no warranty or guarantee of the accuracy or completeness of information in this document.
[2025-05-02 00:12] LABS: Color, Urine Straw (Yellow); Glucose, Dipstick 1000 mg/dl (Normal); Ketone-Dipstick Negative (Negative); Leukocyte Esterase-Dipstick Negative /ul (Negative); Nitrite-Dipstick Negative (Negative); Occult Blood-Urine Negative /ul (Negative); Protein-Dipstick Negative (Negative); Specific Gravity, Urine 1.010 (1.002-1.030); Urine Bilirubin Dipstick Negative (Negative)
[2025-05-02] MEDS: 0.9% Normal Saline (1000mL) 1,000 ML 999 ML IV ×2 (00:18→01:23)
[2025-05-02 00:20] LABS: Internal QC Validated? YES +Cl - CLEAR BKGD; Pregnancy, Serum, hCG Quali. NEGATIVE Negative
[2025-05-02 00:21] LABS: Record Kit Lot#, Serum Preg. 964736
[2025-05-02 00:38] LABS: AST(SGOT) 13 U/L (<=31); Alanine Aminotransfer ALT/SGPT 10 U/L (<=34); Albumin, Serum 3.6 g/dL (3.5-5.0); Alkaline Phosphatase 88 U/L (35-104); Anion Gap 14 (5-15); BETA-HYDROXYBUTYRATE 0.3 mmol/L (0.0-0.3); BUN 12 mg/dL (4-19); BUN/Creat Ratio 19.6 RATIO (10-20); Bilirubin, Direct 0.18 mg/dL (0.00-0.30); Calcium,Total 9.0 mg/dL (7.6-11.0); Carbon Dioxide 17.7 mmol/L (21.0-32.0); Chloride 94 mmol/L (98-108); Estimated Creatinine Clearance 112.47 ml/min (50-250); Globulin 2.5 g/dL (2.2-4.2); Glucose 602 mg/dL (70-99); Lipase 44 U/L (13-75); Potassium 4.7 mmol/L (3.3-5.1)
[2025-05-02 00:50] LABS: Osmolality, Serum 302 mOsm/KG (275-295)
[2025-05-02 00:58] LABS: Hematocrit 31.5 % (37-47); Hemoglobin 10.2 g/dL (12.0-15.0); Immature Granulocytes Count 0.040 X10^3/uL (0.0-0.0); Mean Corp Hgb Conc 32.4 g/dL (32-36); Mean Corpuscular Volume 74.3 fL (81-99); Mean Platelet Vol. 9.1 fl (6.2-12.0); NRBC Flagged by Analyzer 0 % (0-5); Platelet Count 548 K/mm3 (150-450); RBC Distribution Width CV 15.3 % (11.6-14.6); RBC Distribution Width SD 40.5 fl (35.1-43.9); Red Blood Count 4.24 M/mm3 (4.2-5.4); White Blood Count 8.9 K/mm3 (4.4-11.0)
[2025-05-02 01:09] VITALS: BP 116/79; PULSE 82; RESP 16; O2SAT 98
[2025-05-02 01:11] LABS: Red Blood Cells-Urine 0-5 SEEN /hpf (0-5); Squamous Epithelial Cells - UA 0-5 SEEN /hpf (5-10)
--- NOTE | 2025-05-02 02:46 | EX.ED.DYSGE1 ---
HPI History of Present Illness Chief Complaint: Hyperglycemia Informant: patient Narrative Narrative: Patient is a 44-year-old female with past medical history of diabetes as well as anxiety. She states that today she has been checking her blood sugars and they have just been reading high. She states she has been taking all of her medication as directed. She denies any fevers chills or sick symptoms. She denies any previous history of DKA or HHS. However as her blood sugar is typically around 200 and now her meter is just reading high this concerns her and she presents for evaluation. [facility] Medical History Diabetes Physical exam, pre-employment Home Medications ?Medication ?Instructions ?Recorded ?Last Taken ?Type metformin 1,000 mg tablet 1,000 mg PO BID 04/05/24 Unknown History dulaglutide 1.5 mg/0.5 mL 1.5 mg subcut QWEEK 05/02/25 Unknown History subcutaneous pen injector (Trulicity) famotidine 20 mg tablet 20 mg PO DAILY 05/02/25 Unknown History glipizide 10 mg tablet, extended 20 mg PO BID 05/02/25 Unknown History release 24 hr Allergy/AdvReac Type Severity Reaction Status Date / Time acetaminophen (From Vicodin) AdvReac Nausea Verified 05/02/25 00:05 hydrocodone bitartrate (From AdvReac Nausea Verified 05/02/25 00:05 Vicodin) Surgical History History of cholecystectomy History of loop electrical excision procedure (LEEP) History of tonsillectomy Social History household members: significant other housing: apartment Smoking Status: Light Smoker (<10/day) ROS ROS ED Constitutional Constitutional ED: Denies chills or fever(s) Eyes Eyes: Denies blurry vision or change in vision ENT ENT ED: Denies sore throat Cardiovascular Cardiovascular: Denies chest pain Respiratory/Chest Respiratory/Chest: Denies cough or dyspnea Gastrointestinal Gastrointestinal: Denies abdominal pain, diarrhea, nausea or vomiting Genitourinary Genitourinary ED: Denies dysuria Musculoskeletal Musculoskeletal: Denies myalgias Integumentary Denies rash Neurologic Neurologic: Denies headache(s) Psychiatric Psychiatric: Reports anxiety Hematologic/Lymphatic Hematologic/Lymphatic: Denies easy bleeding or easy bruising EXAM Physical Exam Const Vital Signs: 05/01/25 23:10 05/02/25 00:07 05/02/25 01:09 Temperature 97.6 F L Temperature Source Temporal Pulse Rate 91 82 Respiratory Rate 18 16 Respiratory Effort Normal Non-Labored Respiratory Pattern Normal Blood Pressure 125/102 H 116/79 Blood Pressure Mean 109 91 Pulse Ox 99 98 Oxygen Delivery Method Room Air Room Air Positive well nourished, well developed and obese General Appearance ED: well developed; Negative for pallor Nutritional Appearance: obese HEENT Reports dry mucous membranes HEENT Narrative: No tongue or lip swelling no oral lesions no airway edema or compromise Mucous membranes are dry and tacky No secondary findings in the posterior pharynx to suggest infection Mouth ED: Yes dry mucous membranes Mouth: dry mucous membranes Eyes PERRL and EOMs intact bilaterally General Eye ED: Negative for scleral icterus Neck supple Neck Narrative: No nuchal rigidity or meningeal signs Resp normal respiratory effort and clear to auscultation bilaterally Cardio regular rate and regular rhythm GI normal to inspection, nondistended, normoactive bowel sounds, non-tender, non-distended and no masses Auscultation: normoactive bowel sounds Palpation: soft Extremity normal to inspection Neuro oriented x3, CN's II-XII intact bilaterally and no sensory deficits noted Sensorium / Orientation: alert Motor Exam: strength 5/5 throughout Psych Mood & Affect: anxious Skin no rashes or lesions noted, no wounds and No skin turgor normal Skin Narrative: Skin turgor is increased General Skin Exam: Negative for jaundice or pallor MDM MDM MDM Narrative Medical decision making narrative: Patient arrived to the ER with stable vitals. She reported that she has been taking her medication as directed but today her blood sugar was just reading high. In order to ensure that she does not have DKA or HHS or clinically significant electrolyte abnormality or potential secondary infection leading to her hyperglycemia basic labs were obtained. Patient does not have a white count or left shift going against systemic infection urine sample shows no sign of UTI. Serum osmolality is under 320 going against HHS. Patient's blood sugar is elevated at 602 but her anion gap and serum bicarb are normal going against DKA. Therefore this time her workup indicates she is just hyperglycemic but not in DKA or HHS or having elevation of blood sugar secondary to a systemic infection. She was given 2 L of fluid and the blood sugar reduced to approximately 450. Following this she was treated with subcu insulin. However as her vitals are stable and overall workup is negative for systemic infection acute kidney injury clinically significant electrolyte abnormality and she is not in DKA or HHS and her blood sugars are now improving she is otherwise safe for discharge. History & Record Review Discussion w/independent historian: Patient Lab Data Attestation: I reviewed the patient's lab results. Labs: Laboratory Results - last 24 hr 05/01/25 05/01/25 05/01/25 23:45 23:50 23:55 WBC Cancelled Corrected WBC Cancelled RBC Cancelled Hgb Cancelled Hct Cancelled MCV Cancelled MCH Cancelled MCHC Cancelled RDW Std Deviation Cancelled RDW Coeff of Arlin Cancelled Plt Count Cancelled MPV Cancelled Immature Gran % (Auto) Cancelled Neut % (Auto) Cancelled Lymph % (Auto) Cancelled [place] % (Auto) Cancelled Eos % (Auto) Cancelled Baso % (Auto) Cancelled Absolute Neuts (auto) Cancelled Absolute Lymphs (auto) Cancelled Total Counted Cancelled Neutrophils % (Manual) Cancelled Band Neutrophils % Cancelled Lymphocytes % (Manual) Cancelled Monocytes % (Manual) Cancelled Eosinophils % (Manual) Cancelled Basophils % (Manual) Cancelled Metamyelocytes % Cancelled Myelocytes % Cancelled Promyelocytes % Cancelled Blast Cells % Cancelled Plasma Cell % (Manual) Cancelled Other Cells % Cancelled Nucleated RBC % Cancelled Nucleated RBCs/100 WBC Cancelled Differential Comment Cancelled Diff Path Review Cancelled Hypersegmented Neuts Cancelled Atypical Lymphocytes Cancelled Reactive Lymphocytes Cancelled Smudge Cells Cancelled Toxic Granulation Cancelled Toxic Vacuolation Cancelled Dohle Bodies Cancelled Apolonia Rods Cancelled Platelet Estimate Cancelled Plt Morphology Comment Cancelled RBC Morphology Cancelled Polychromasia Hypochromasia Basophilic Stippling Anisocytosis Microcytosis Macrocytosis Spherocytes Sickle Cells Target Cells Tear Drop Cells Ovalocytes Stomatocytes Ontiveros-Burdett Bodies Humphrey Cells Bite Cells Crenated Cell Acanthocytes (Spur) Rouleaux Schistocytes Sodium Potassium Chloride Carbon Dioxide Anion Gap BUN Creatinine Estim Creat Clear Calc Est GFR (MDRD) Non-Af BUN/Creatinine Ratio Glucose Serum Osmolality Calcium Total Bilirubin Direct Bilirubin AST ALT Alkaline Phosphatase Total Protein Albumin Globulin Lipase b-Hydroxybutyric mmol/L Serum , Qual Urine Color Straw Urine Clarity Clear Urine pH 7.0 Ur Specific [place] 1.010 Urine Protein Negative Urine Glucose (UA) 1000 H Urine Ketones Negative Urine Occult Blood Negative Urine Nitrite Negative Urine Bilirubin Negative Urine Urobilinogen Normal Ur Leukocyte Esterase Negative Urine RBC 0-5 SEEN Urine WBC 0-5 SEEN Ur Squamous Epith Cells 0-5 SEEN Urine Bacteria 0 SEEN Urine Mucus 0 SEEN POC Glucose > 500 H* 05/01/25 05/02/25 23:55 00:31 WBC 8.9 Corrected WBC RBC 4.24 Hgb 10.2 L Hct 31.5 L MCV 74.3 L MCH 24.1 L MCHC 32.4 RDW Std Deviation 40.5 RDW Coeff of Arlin 15.3 H Plt Count 548 H MPV 9.1 Immature Gran % (Auto) 0.400 Neut % (Auto) 51.3 Lymph % (Auto) 39.1 [place] % (Auto) 7.4 Eos % (Auto) 1.0 Baso % (Auto) 0.8 Absolute Neuts (auto) 4.6 Absolute Lymphs (auto) 3.48 Total Counted Neutrophils % (Manual) Band Neutrophils % Lymphocytes % (Manual) Monocytes % (Manual) Eosinophils % (Manual) Basophils % (Manual) Metamyelocytes % Myelocytes % Promyelocytes % Blast Cells % Plasma Cell % (Manual) Other Cells % Nucleated RBC % 0 Nucleated RBCs/100 WBC Differential Comment Diff Path Review Hypersegmented Neuts Atypical Lymphocytes Reactive Lymphocytes Smudge Cells Toxic Granulation Toxic Vacuolation Dohle Bodies Apolonia Rods Platelet Estimate Plt Morphology Comment RBC Morphology Cancelled Polychromasia Cancelled Hypochromasia Cancelled Basophilic Stippling Cancelled Anisocytosis Cancelled Microcytosis Cancelled Macrocytosis Cancelled Spherocytes Cancelled Sickle Cells Cancelled Target Cells Cancelled Tear Drop Cells Cancelled Ovalocytes Cancelled Stomatocytes Cancelled Ontiveros-Burdett Bodies Cancelled Humphrey Cells Cancelled Bite Cells Cancelled Crenated Cell Cancelled Acanthocytes (Spur) Cancelled Rouleaux Cancelled Schistocytes Cancelled Sodium 126 L Potassium 4.7 Chloride 94 L Carbon Dioxide 17.7 L Anion Gap 14 BUN 12 Creatinine 0.61 L Estim Creat Clear Calc 112.47 Est GFR (MDRD) Non-Af 115 BUN/Creatinine Ratio 19.6 Glucose 602 H* Serum Osmolality 302 H Calcium 9.0 Total Bilirubin 0.54 Direct Bilirubin 0.18 AST 13 ALT 10 Alkaline Phosphatase 88 Total Protein 6.2 Albumin 3.6 Globulin 2.5 Lipase 44 b-Hydroxybutyric mmol/L 0.3 Serum , Qual NEGATIVE Urine Color Urine Clarity Urine pH Ur Specific [place] Urine Protein Urine Glucose (UA) Urine Ketones Urine Occult Blood Urine Nitrite Urine Bilirubin Urine Urobilinogen Ur Leukocyte Esterase Urine RBC Urine WBC Ur Squamous Epith Cells Urine Bacteria Urine Mucus POC Glucose Radiography Diagnostic Testing: Clinical Impression(s) from Imaging Studies Chest X-Ray 05/01/25 23:59 IMPRESSION: No evidence for acute abnormality. Reading Location: [place] [address] Chest x-ray as interpreted by the emergency medicine physician reveals no acute infiltrate or pneumothorax Discharge Plan Triage Chief Complaint: Hyperglycemia ED Provider: Saurabh Mckinnon Dx/Rx/DC Orders Clinical Impression: Hyperglycemia, Type 2 diabetes mellitus Instructions: ED Diabetic Hyperglycemia Prescriptions: No Action Trulicity 1.5 mg/0.5 mL pen injector 1.5 mg subcut QWEEK Rx Instructions: MONDAYS glipizide 10 mg tablet extended release 24hr 20 mg PO BID famotidine 20 mg tablet 20 mg PO DAILY metformin 1,000 mg tablet 1,000 mg PO BID Primary Care Provider: JOSE MCPHERSON Referrals: JOSE MCPHERSON [Other] Activity Restrictions/Additional Instructions: Your workup today revealed hyperglycemia but no signs of diabetic ketoacidosis or hyperglycemic hyperosmolar state. There was also no sign of infection noted in your urine or on your chest x-ray. Please continue all of your home medication as directed by your doctor and return to the ER should you have any further concerns. Print Language: Maldivian Disposition Disposition: Home, Self Care Discharge Date/Time: 05/02/25 03:18
[2025-05-02 03:00] VITALS: BP 115/95; PULSE 72; RESP 16; O2SAT 98
[2025-05-02 03:02] VITALS: BP 115/95; PULSE 72; RESP 16; TEMP 36.6; O2SAT 99
== END 2025-05-02 03:18 | disposition home or self-care (01) ==
PROVIDERS: Emergency Provider Emergency Medicine; Visit Provider Emergency Medicine
DX: E11.65 Type 2 diabetes mellitus with hyperglycemia (principal); F17.200 Nicotine dependence, unspecified, uncomplicated; Z79.85 Long-term (current) use of injectable non-insulin antidiabetic drugs; Z79.84 Long term (current) use of oral hypoglycemic drugs
CPT/HCPCS: 71046; 80048; 80076; 81001; 82010; 82962; 83690; 83930; 84703; 85025; 96360; 96361; 99283; A4216